=== PATIENT | female | born 1950 | race Caucasian/White ===

== ENCOUNTER 2018-12-11 05:51 | Inpatient (IN) | payer MEDICARE, OTHER, SELFPAY ==
[2018-11-27 12:57] VITALS: BMI 32.5
[2018-12-11] VITALS (10 sets, daily range): BP systolic 105–124; BP diastolic 55–72; PULSE 72–111; RESP 10–20; TEMP 36.1–36.9; O2SAT 95–98; BMI 34.0
[2018-12-11] MEDS: LACTATED RINGERS 1,000 ML 42 ML IV ×2 (07:07→08:46)
[2018-12-11] MEDS: MIDAZOLAM 2 MG/2 ML VIAL IV (07:42)
[2018-12-11] MEDS: fentaNYL 100 MCG/2 ML INJ 50 MCG IV (07:42)
--- NOTE | 2018-12-11 07:43 | PM.PREOP ---
Pre-operative Note Interval Note History & Physical reviewed/Exam performed by Physician: Yes Changes to H&P: No
--- NOTE | 2018-12-11 07:48 | PM.OP.1 ---
Operative Date/Time/Diagnoses Date of procedure: 12/11/18 Time of procedure: 09:45 Pre-op diagnosis: Right shoulder osteoarthritis Post-op diagnosis: same Procedure & Clinicians Procedure: Right total shoulder replacement Same procedure as scheduled: Yes Indications: The patient has had progressively worsening right shoulder pain with radiographic changes consistent with arthritis. Non-operative management has failed and the patient has requested total shoulder replacement. The risks, benefits and alternatives to surgery were discussed with the patient prior to proceeding. Risks discussed included, but were not limited to, failure to relieve pain, stiffness, infection, nerve damage, deep venous thrombosis, pulmonary embolism, stroke, coma, heart attack, permanent paralysis and , as well as the potential need for eventual revision of the prosthetic. Surgeon: John Tamayo Corporate Communications Associate: Alejandro Woods Click Yes if Unassisted: No Anesthesia Type: General, Peripheral nerve block and Local Operative Notes Findings: Severe osteoarthritis with large inferior osteophyte on the humeral head. Closure Type: primary Specimen(s): none sent Prosthetic devices, grafts, tissues, transplants, or devices: Implants used in this procedure were manufactured by the [employer] and included an Altivate short stem total shoulder system with a size 12 humeral stem, neutral humeral neck, and a 46 mm x 16 mm neutral humeral head. In addition a 46 mm all polyethylene E + pegged glenoid was used. Applied: implant(s) Estimated Blood Loss (mL): 100 Blood products transfused: none Procedure in detail: The patient was seen in the pre-operative area, where the patient identified the right shoulder as the operative site and this was marked with my initials. The patient received pre-operative antibiotics, underwent an interscalene block, and was taken to the operating room and placed on the operative table in the supine position. After satisfactory anesthesia, a full ?time out? was performed. The patient was repositioned in the ?beach chair? position using a dedicated positioner. All pressure points were well padded, and the knees were slightly bent to prevent tension on the sciatic nerves. The right arm was prepared from the fingers to the base of the neck with ChloroPrep in the usual fashion and draped through sterile drapes. An approximately 15 cm incision was created, starting at the clavicle above the coracoid process and extended towards the deltoid insertion. The deltopectoral interval was used to access the shoulder. The cephalic vein was taken medially. A self retaining retractor was placed. The upper centimeter of the pectoralis major tendon was released. The ?three sisters? were identified and cauterized. The axillary nerve was palpated and protected throughout the case. The biceps was released from its groove and tenodesed over the top of the pectoralis major tendon. The subscapularis was released from the lesser tuberosity with a subscapularis peel and tagged for later repair. The shoulder was dislocated and a cutting guide was used for the proximal humeral osteotomy in 30 degrees of retroversion. A starter reamer was used followed by the cylindrical reamers. This continued in larger sizes in till cortical bite was achieved. Sequential broaching was then performed until a line to line fit with the reamer occurred. A proximal humeral protector was then placed. We then removed the self-retaining retractor and placed retractors to access the glenoid. The subscapularis was released with a ?360 degree release? with care being taken to protect the axillary nerve with the inferior portion of this procedure. The remnant of labrum and biceps stump were removed. The appropriate size reamer was chosen with the glenoid sizer, and the guide pin placed. The glenoid was appropriately reamed. The guide for the peripheral holes was used and the center hole enlarged. The trial glenoid was placed with good stability. We then cemented the final implant into place after irrigating the peg holes and drying them with thrombin-soaked Gelfoam. We returned our attention to the humerus, a trial humeral head was applied and a trial reduction performed. Stability was checked with 50% posterior translation with spontaneous reduction, 45? external rotation at the side with the subscapularis held in the repaired position, and internal rotation to 70? in the ?scarecrow position?. This was felt to be satisfactory and the appropriate implants were opened. Five holes were drilled along the humeral osteotomy and #2 TiCron sutures placed for eventual subscapularis repair. The humeral prosthetic was impacted into the humerus. The humeral head was applied when the stem was still slightly proud and impacted to both seat the head and fully seat the stem. The joint was relocated one final time. The joint was irrigated and the subscapularis repaired to the previously placed sutures using Filiberto-Zeeshan sutures. The top of the subscapularis was closed to the leading edge of the supraspinatus with a figure of 8 #2 TiCron to close the rotator interval. A deep drain was placed and brought out supero-laterally. The deltopectoral interval was closed with interrupted 0 Vicryl. The subcutaneous layer was closed with 3-0 Vicryl, and the skin with a running 3-0 V-Lock suture and SteriStrips. An Aquacel Ag dressing was applied, the patient?s arm was placed in a sling, and the patient was taken to recovery having tolerated the procedure well. Complications: none Condition: stable Disposition: PACU Plan for aftercare: The patient will be maintained on a standard total shoulder replacement protocol with passive range of motion limited to 90 degrees forward flexion, 0 degrees external rotation at the side, 0 degrees abduction and internal rotation to the body. The patient will receive aspirin and sequential compression devices for DVT prophylaxis. The patient will be discharged home when safe for the home environment, likely tomorrow.
[2018-12-11] MEDS: CEFAZOLIN 2 GM/100 ML FROZ.PIGGY IV (07:51)
--- NOTE | 2018-12-11 07:52 | SUR.PREOP ---
0742 - Anesthesia at bedside starting nerve block to right shoulder, pt. placed in supine flat position for procedure; O2 applied @ 2L/min. VSS, saturation 100%. 0749 - block procedure completed, pt. tolerated quite well, verbally responsive.
[2018-12-11] MEDS: TRANEXAMIC ACID 1,000 MG VIAL 1000 MG INJ ×2 (08:20→09:26)
--- NOTE | 2018-12-11 08:32 | SUR.OPER ---
Beach chair with skytron table shoulder positioner. Lower body on padded OR bed. Head in foam padded head cradle, secured with straps. Non-operative arm secured <90 degrees abduction. Pillow under knees. Safety belt at thigh. Cloth tape over blanket over lower legs.
[2018-12-11] MEDS: BUPIVACAINE 0.5% W/ EPI (PF) VIAL 30 ML INJ (08:39)
[2018-12-11] MEDS: THROMBIN (RECOMBINANT) 5,000 UNIT VIAL 5000 UNIT TOP (08:45)
--- NOTE | 2018-12-11 10:05 | DI.RAD.S_ITS ---
PROCEDURE: XR SHOULDER RT 1V INDICATIONS: post op total shoulder TECHNIQUE: Single views of the shoulder were acquired. COMPARISON: None. FINDINGS: Bones: Single view demonstrates right shoulder arthroplasty. The hardware is in anatomic alignment. Soft tissues: Postoperative changes are present with a surgical drain in place. IMPRESSION: Status post right shoulder arthroplasty. Dictated by: Lucina Alves M.D. on 12/11/2018 at 10:30 Approved by: Lucina Alves M.D. on 12/11/2018 at 10:31
[2018-12-11] MEDS: OXYCODONE IR 10 MG TABLET PO ×2 (11:08→23:37)
[2018-12-11] MEDS: HYDROMORPHONE 1 MG INJ 0.5 MG IV (11:10)
[2018-12-11] MEDS: LACTATED RINGERS 1,000 ML 125 ML IV ×2 (11:11→20:10)
--- NOTE | 2018-12-11 11:12 | PC.NURSE ---
Addendum entered by Luz Mancini R.N. 12/11/18 15:02: Pt is up in halls with PT and reports pain is well controlled with PO meds. PT will see Pt again in AM and spouse will be here. Original Note: Admit Pt arrived to floor @ 1032, oriented to room, admission completed. CBG 140, snack at bedside. CMS + wiggling fingers, numbness to R shoulder but throb starting. Medicated. LR hung. Pt cooperative and in good spirits.
--- NOTE | 2018-12-11 14:45 | PT.IIE ---
Current Diagnoses Primary osteoarthritis, right shoulder (12/11/18) Surgery Performed Operation Date: 12/11/18 07:45 Actual Procedures p Total Shoulder Arthroplasty(Right) - John Tamayo MD Surgical History (Last Updated 11/27/18 @ 13:36 by Mena Wynn, RN) History of arthroplasty of left knee (Acute) History of arthroplasty of left shoulder (Acute) History of arthroplasty of right knee (Acute) History of section (Acute) History of lumbar spinal fusion (Acute 11/17/17) History of lumbar surgery (Acute) Hx of cholecystectomy (Acute) Hx of tonsillectomy (Acute) Hx of umbilical hernia repair (Acute) Status post cataract extraction of both eyes with insertion of intraocular lens (Acute ~2018) Medical History (Last Updated 11/27/18 @ 13:36 by Mena Wynn RN) Bilateral shoulder pain (Acute) Bronchitis (Acute) Depression (Acute) Diabetes (Acute) Diverticulosis (Acute) HLD (hyperlipidemia) (Acute) Hepatomegaly (Acute) History of hysterectomy (Acute) Hx of prolonged Q-T interval on ECG (Acute) Osteoarthritis (Acute) Pneumonia (Acute) Pulmonary nodules (Acute) Rheumatoid arthritis (Acute) CARLY (stress urinary incontinence, female) (Acute) Sciatica (Acute) Physical Therapy Inpatient Evaluation/Re-Eval M1 PT/OT-IP Prior Functional Status Start: 12/11/18 11:20 Freq: NEEDED Status: Active Protocol: Document 12/11/18 14:45 RS (Rec: 12/11/18 15:44 RS [id number]) Medical Review Prior Functional Status Medical History Reviewed Yes Diet/Fluid Consistency Regular Communication no known deficits Mobility and Gait ind without device, does endorse occassional bilat knee pain, can usually walk 5-10 minutes without stopping Activities of Daily Living and IADL's completely independent Prior Functional Level (Other details) drives, denies falls Social History Household Members spouse Living Arrangements House Number of Floors (Floors) One Floor Number of Stairs To Enter/Railing? 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 Retired Additional Social History Comment spouse can provide 24/7 assist M2 PT-IP Current Condition Start: 12/11/18 11:20 Freq: NEEDED Status: Active Protocol: Document 12/11/18 14:45 RS (Rec: 12/11/18 15:44 RS [id number]) Physical Therapy Current Condition Current Condition Evaluation Date 12/11/18 Treatment Diagnosis R TSA Onset Date 12/11/18 Precautions Shoulder Precautions Sling PROM Internal Rotation to Body No External Rotation No Abduction Forward Flexion to 90 degrees Pendulums Weight Bearing Status Weight Bearing Status Non-Weight Bearing M3 PT-IP Subjective Start: 12/11/18 11:20 Freq: NEEDED Status: Active Protocol: Document 12/11/18 14:45 RS (Rec: 12/11/18 15:44 RS [id number]) Subjective Physical Therapy Visit Type Type Initial Evaluation Visit Start Time 14:00 Visit Stop Time 14:45 Total Visit Minutes 45 Physical Therapy Visit Comments Patient Comments Pt reports doing well, does endorse R shoulder pain, but is looking forward to getting up and moving. Patient Goals go home tomorrow Therapy Pain Assessment Pain When Pain Assessed At Rest Pain Present Pain Present Pain Reported Location Right Shoulder Description Aching Pain Management Techniques Apply Cold Re-positioning M4 PT-IP Mobility and Gait Start: 12/11/18 11:20 Freq: NEEDED Status: Active Protocol: Document 12/11/18 14:45 RS (Rec: 12/11/18 15:44 RS [id number]) PT-Bed Mobility Assessment Supine to Sit Supine to Sit Standby Assistance 1 Person Assistance Head of Bed Elevated Sit to Supine Sit to Supine Standby Assistance 1 Person Assistance Scooting Scooting to Edge of Bed Standby Assistance PT-Transfer Assessment Sit to and From Stand Sit to and from Stand Standby Assistance 1 Person Assistance Equipment Transfer Assistive Device None Transfers Transfer Destination Bed Transfer Technique turned to sit after walking around unit Transfer Ability Level of Assist Standby Assistance Comments Mobility Comments Pt intends to sleep in recliner when first home. Did verbally review how to get out of a flat bed once she's ready to try that at home. Pt has utilized log rolling in the past and feels comfortable using the technique, declined to take the time to actually perform it during this session . Pt was able to get back into a flat bed without difficulty . Pt very steady on her feet with transfers, no dizziness or LOB. Gait Assessment Gait Gait Assistance Required: Standby Assistance Distance (Feet) 800 Assistive Devices Assistive Device None Gait Deviations General Gait Pattern Within Normal Limits Comments Gait Comments completely WNL, no LOB or other gait abnormalities, did cue patient a few times to keep R shoulder relaxed Stair Climbing Assessment Evaluation Level of Assist On Stairs Standby Assistance Devices Stair Climbing Assistive Devices Left Railing Technique/Endurance Stair Climbing Direction Ascend and Descend Stair Climbing Technique Step to Step Number of Steps Climbed 3 Query Text: Stair Climbing Set # Repetitions (reps) 1 Comments Stair Climbing Comments pt utilizes step-to pattern at baseline, able to complete steps safely, no concerns PT-Balance Assessment Sitting Balance and Reactions Static Sitting Balance Ability Normal Dynamic Sitting Balance Ability Normal Standing Balance and Reactions Static Standing Balance Ability Normal Dynamic Standing Balance Ability Normal Device Used none M5 PT-IP Objective Assessments Start: 12/11/18 11:20 Freq: NEEDED Status: Active Protocol: Document 12/11/18 14:45 RS (Rec: 12/11/18 15:44 RS [id number]) Orientation Orientation/Cognition Level of Alertness Alert Orientation Name Age Birthday Month Date Year Day of Week Place Situation Language Function Ability No Deficits Noted Safety Awareness Understands Safety Issues Memory Description No Deficits Noted Gross Range of Motion Upper Extremity ROM Assessment Bilaterally Impaired Impairments RUE in sling, LUE limited by pain but WFL Lower Extremity ROM Assessment Within Functional Limits Strength Upper Extremity Strength Assessment Right Impaired Lower Extremity Strength Assessment Within Functional Limits M7 PT-IP Assessment and Plan Start: 12/11/18 11:20 Freq: NEEDED Status: Active Protocol: Document 12/11/18 14:45 RS (Rec: 12/11/18 15:44 RS [id number]) PT Summary Assessment and Plan Potential Rehabilitation Potential Excellent Status of Condition at Evaluation Stable
[2018-12-11] MEDS: CEFAZOLIN 1 GM/50 ML FROZ.PIGGY IV ×2 (15:40→23:31)
[2018-12-11] MEDS: ACETAMINOPHEN 325 MG TABLET 975 MG PO ×2 (15:41→20:09)
[2018-12-11] MEDS: METFORMIN HCL 500 MG TABLET 1000 MG PO (17:17)
[2018-12-11] MEDS: INSULIN ASPART 100 UNIT/ML INSULN PEN SUBCUT (17:18)
[2018-12-11] MEDS: METOPROLOL ER 50 MG TABLET PO (20:07)
[2018-12-11] MEDS: TOLTERODINE LA 4 MG PO (20:07)
[2018-12-11] MEDS: OXYCODONE IR 5 MG TABLET PO (20:08)
[2018-12-11] MEDS: ASPIRIN EC 81 MG TABLET PO (20:08)
[2018-12-11] MEDS: MELOXICAM 7.5 MG TABLET 15 MG PO (20:08)
[2018-12-11] MEDS: GABAPENTIN 300 MG CAPSULE PO (20:08)
[2018-12-11] MEDS: DULOXETINE 30 MG CAPSULE 60 MG PO (20:08)
[2018-12-11] MEDS: SIMVASTATIN 20 MG TABLET PO (20:10)
--- NOTE | 2018-12-11 21:18 | PC.NURSE ---
evening note-pt has been sitting up in bed most of the shift. up to the bathroom a few times w/SBA. Pain has been tolerable, did give pt one percolone at HS. Pt has been A&O, calm and cooperative.
[2018-12-12] MEDS: OXYCODONE IR 5 MG TABLET PO (04:34)
[2018-12-12 04:37] VITALS: BP 118/49; PULSE 99; RESP 16; TEMP 36.6; O2SAT 96
--- NOTE | 2018-12-12 04:53 | PC.NURSE ---
NOC SHIFT- Patient pleasant, VSS. Pain managed with oxycodone, patient verbalizes tolerable pain levels. Patient sleeping most of shift. Ice pack to shoulder, hemovac patent. Dressing clean and dry. +CMS, +radial pulse strong. No voiced needs or concerns throughout shift. Call light in reach.
[2018-12-12 05:28] LABS: Hematocrit 31.1 % (36-46); Hemoglobin 10.5 g/dL (12.0-16.0); Mean Corpuscular HGB Conc 33.6 % (30-36); Mean Corpuscular Hemoglobin 28.9 PG (26-34); Mean Corpuscular Volume 85.9 fL (80-100); Platelet Count 174 X10^3/uL (150-400); Red Blood Cell Count 3.62 X10^6/uL (4.0-5.2); Red Cell Distribution Width 13.4 % (11.6-14.8); White Blood Cell Count 6.2 X10^3/uL (4.5-11.0)
--- NOTE | 2018-12-12 07:45 | P.DS_ITS ---
History of Present Illness Date Patient Seen: 12/12/18 Time Patient Seen: 07:42 Chief complaint: right shoulder [id number] Narrative: The history and physical exam is contained in the chart previously completed note. Please refer to that note for this information. Discharge Providers Date of admission: 12/11/18 05:51 Primary care physician: Christin Linares PA-C Consults: 12/11/18 06:00 Consult to Anesthesiology Routine Comment: Consulting Provider: Anesthesiologist Reason for consultation: Regional block for post operative pain control 12/11/18 10:44 Consult to Discharge Planning Routine Comment: Consult to Physical Therapy Evaluate & Treat Comment: Physician Instructions: Evaluate and Treat Consult to Respiratory Therapy Evaluate & Treat Comment: Physician Instructions: Evaluate and treat Discharge provider: John Tamayo MD Discharge Date: 12/12/18 Summary Discharge Diagnosis: 1. Right shoulder osteoarthritis 2. Mild acute post hemorrhagic anemia Hospital Course: The patient was admitted to the hospital and taken directly to the operating room on December 11, 2018 where she underwent a right total shoulder replacement without difficulty. She was in some discomfort on postoperative day 1 but was stable for discharge. Status at Discharge Cognitive/behavioral status at discharge: At baseline Functional status at discharge: independent ambulation Overall status at discharge: patient is progressing back to baseline Time Spent with Patient Less than 30 minutes Exam Vital Signs (past 8 hours): - 12/12/18 04:37 Temperature 97.8 F Pulse Rate 99 H Respiratory Rate 16 Blood Pressure 118/49 L Pulse Oximetry 96 Oxygen Delivery Method Room Air Oxygen Flow Rate 0 Narrative Exam Narrative: Right upper extremity wound is dressed with no drainage on the bandage. In light touch is intact in the radial, ulnar, median, muscular cutan eous and axillary nerve distributions. The patient can fire her deltoid and biceps as well as her thumb extensors, thumb abductors and finger abductors. Objective Labs Result Diagrams: 12/12/18 05:03 Labs: Laboratory Results - last 24 hr 12/12/18 05:03 WBC 6.2 RBC 3.62 L Hgb 10.5 L Hct 31.1 L MCV 85.9 MCH 28.9 MCHC 33.6 RDW 13.4 Plt Count 174 Discharge Plan Discharge Plan Patient Disposition: Home Discharge Med Rec/Prescriptions Prescriptions: New acetaminophen 325 mg Tablet 975 mg PO TID 30 Days Qty: 270 RF: 0 aspirin 81 mg Tablet,Delayed Release (Dr/Ec) 81 mg PO BID 42 Days Qty: 84 RF: 0 oxycodone 5 mg Tablet 5 mg PO Q3HR PRN (Reason: Pain, Moderate (4-6)) Qty: 40 RF: 0 hydroxyzine pamoate 25 mg Capsule 25 mg PO Q4HR PRN (Reason: Spasms) Qty: 40 RF: 0 Continued meloxicam 15 mg tablet 15 mg PO BEDTIME RF: 0 metformin 1,000 MG tablet 1,000 mg PO QPM Qty: 0 RF: 0 lisinopril 10 MG tablet 10 mg PO QAM Qty: 0 RF: 0 duloxetine [Cymbalta] 60 MG capsule,delayed release(DR/EC) 60 mg PO HS Qty: 0 RF: 0 gabapentin [Neurontin] 300 MG capsule 300 mg PO BID Qty: 180 RF: 0 metoprolol succinate [Toprol XL] 50 MG tablet extended release 24 hr 50 mg PO BID Qty: 180 RF: 0 simvastatin 40 mg Tablet 20 mg PO BEDTIME RF: 0 triamterene-hydrochlorothiazid 75-50 mg Tablet 0.5 tab PO DAILY RF: 0 Januvia 100 mg Tablet 100 mg PO DAILY RF: 0 tolterodine [Detrol LA] 4 mg Capsule,Extended Release 24hr 4 mg PO BEDTIME RF: 0 Discontinued aspirin 81 MG tablet,delayed release (DR/EC) 81 mg PO QDAY Qty: 0 RF: 0 Follow up/Referrals: John Tamayo MD [Physician] - 2 Weeks Christin Linares PA-C [Primary Care Provider] - Provider Discharge Instructions Diet: Diet as Tolerated and Carb-consistent/Diabetic Activity: You may move your right arm in front of your body below shoulder level. Skin/Wound/Dressing Care Report to your healthcare provider any signs of infection, such as:: chills, fever, night sweats, increased pain, unusual drainage and unusual redness Dressing: Leave the dressing intact until your follow-up appointment. You may shower with the dressing intact. If the center strip of the dressing becomes saturated with either water or blood please call the office. Visit Report/Discharge Packet Instructions: DI for Shoulder Replacement Stand Alone Forms: Surgery Discharge Discharge Data Primary Care Provider: Christin Linares Attending Provider: John Tamayo Admit Date/Time: 12/11/18 05:51
[2018-12-12 08:00] VITALS: BP 140/68; PULSE 91; RESP 16; O2SAT 97
[2018-12-12] MEDS: LISINOPRIL 10 MG TABLET PO (08:25)
[2018-12-12] MEDS: ASPIRIN EC 81 MG TABLET PO (08:25)
[2018-12-12] MEDS: ACETAMINOPHEN 325 MG TABLET 975 MG PO (08:25)
[2018-12-12] MEDS: METOPROLOL ER 50 MG TABLET PO (08:25)
[2018-12-12] MEDS: GABAPENTIN 300 MG CAPSULE PO (08:25)
[2018-12-12] MEDS: TRIAMTERENE/HCTZ 37.5/25 TABLET 0.5 CAP PO (08:25)
[2018-12-12] MEDS: INSULIN ASPART 100 UNIT/ML INSULN PEN SUBCUT (08:26)
[2018-12-12] MEDS: SITAGLIPTIN 50 MG TABLET 100 MG PO (08:26)
[2018-12-12] MEDS: OXYCODONE IR 10 MG TABLET PO (08:27)
--- NOTE | 2018-12-12 09:55 | PT.IPTN ---
Current Diagnoses Primary osteoarthritis, right shoulder (12/11/18) Surgery Performed Operation Date: 12/11/18 07:45 Actual Procedures p Total Shoulder Arthroplasty(Right) - John Tamayo MD Physical Therapy Treatment Note M2 PT-IP Current Condition Start: 12/11/18 11:20 Freq: NEEDED Status: Active Protocol: Document 12/11/18 14:45 RS (Rec: 12/11/18 15:44 RS [id number]) Physical Therapy Current Condition Current Condition Evaluation Date 12/11/18 Treatment Diagnosis R TSA Onset Date 12/11/18 Precautions Shoulder Precautions Sling PROM Internal Rotation to Body No External Rotation No Abduction Forward Flexion to 90 degrees Pendulums Weight Bearing Status Weight Bearing Status Non-Weight Bearing M3 PT-IP Subjective Start: 12/11/18 11:20 Freq: NEEDED Status: Active Protocol: Document 12/12/18 09:55 RS (Rec: 12/12/18 09:55 RS [id number]) Subjective Physical Therapy Visit Type Type Discharge Summary Notes OT order was submitted, so OT took the family training scheduled for 0900 today with pt and spouse. Pt safe and ready to discharge home. Acute PT has no other goals/needs at this time and will sign off . M4 PT-IP Mobility and Gait Start: 12/11/18 11:20 Freq: NEEDED Status: Active Protocol: Document 12/11/18 14:45 RS (Rec: 12/11/18 15:44 RS [id number]) PT-Bed Mobility Assessment Supine to Sit Supine to Sit Standby Assistance 1 Person Assistance Head of Bed Elevated Sit to Supine Sit to Supine Standby Assistance 1 Person Assistance Scooting Scooting to Edge of Bed Standby Assistance PT-Transfer Assessment Sit to and From Stand Sit to and from Stand Standby Assistance 1 Person Assistance Equipment Transfer Assistive Device None Transfers Transfer Destination Bed Transfer Technique turned to sit after walking around unit Transfer Ability Level of Assist Standby Assistance Comments Mobility Comments Pt intends to sleep in recliner when first home. Did verbally review how to get out of a flat bed once she's ready to try that at home. Pt has utilized log rolling in the past and feels comfortable using the technique, declined to take the time to actually perform it during this session . Pt was able to get back into a flat bed without difficulty . Pt very steady on her feet with transfers, no dizziness or LOB. Gait Assessment Gait Gait Assistance Required: Standby Assistance Distance (Feet) 800 Assistive Devices Assistive Device None Gait Deviations General Gait Pattern Within Normal Limits Comments Gait Comments completely WNL, no LOB or other gait abnormalities, did cue patient a few times to keep R shoulder relaxed Stair Climbing Assessment Evaluation Level of Assist On Stairs Standby Assistance Devices Stair Climbing Assistive Devices Left Railing Technique/Endurance Stair Climbing Direction Ascend and Descend Stair Climbing Technique Step to Step Number of Steps Climbed 3 Query Text: Stair Climbing Set # Repetitions (reps) 1 Comments Stair Climbing Comments pt utilizes step-to pattern at baseline, able to complete steps safely, no concerns PT-Balance Assessment Sitting Balance and Reactions Static Sitting Balance Ability Normal Dynamic Sitting Balance Ability Normal Standing Balance and Reactions Static Standing Balance Ability Normal Dynamic Standing Balance Ability Normal Device Used none M5 PT-IP Objective Assessments Start: 12/11/18 11:20 Freq: NEEDED Status: Active Protocol: Document 12/11/18 14:45 RS (Rec: 12/11/18 15:44 [id number]) Orientation Orientation/Cognition Level of Alertness Alert Orientation Name Age Birthday Month Date Year Day of Week Place Situation Language Function Ability No Deficits Noted Safety Awareness Understands Safety Issues Memory Description No Deficits Noted Gross Range of Motion Upper Extremity ROM Assessment Bilaterally Impaired Impairments RUE in sling, LUE limited by pain but WFL Lower Extremity ROM Assessment Within Functional Limits Strength Upper Extremity Strength Assessment Right Impaired Lower Extremity Strength Assessment Within Functional Limits M7 PT-IP Assessment and Plan Start: 12/11/18 11:20 Freq: NEEDED Status: Active Protocol: Document 12/11/18 14:45 RS (Rec: 12/11/18 15:44 RS [id number]) PT Summary Assessment and Plan Potential Rehabilitation Potential Excellent Status of Condition at Evaluation Stable
--- NOTE | 2018-12-12 09:59 | OT.IP.EVAL ---
Current Diagnoses Primary osteoarthritis, right shoulder (12/11/18) Surgery Performed Operation Date: 12/11/18 07:45 Actual Procedures p Total Shoulder Arthroplasty(Right) - John Tamayo MD Past Medical History (Last Updated 11/27/18 @ 13:36 by Mena Wynn, RN) Bilateral shoulder pain (Acute) Bronchitis (Acute) Depression (Acute) Diabetes (Acute) Diverticulosis (Acute) HLD (hyperlipidemia) (Acute) Hepatomegaly (Acute) History of hysterectomy (Acute) Hx of prolonged Q-T interval on ECG (Acute) Osteoarthritis (Acute) Pneumonia (Acute) Pulmonary nodules (Acute) Rheumatoid arthritis (Acute) CARLY (stress urinary incontinence, female) (Acute) Sciatica (Acute) Surgical History (Last Updated 11/27/18 @ 13:36 by Mena Wynn RN) History of arthroplasty of left knee (Acute) History of arthroplasty of left shoulder (Acute) History of arthroplasty of right knee (Acute) History of section (Acute) History of lumbar spinal fusion (Acute 11/17/17) History of lumbar surgery (Acute) Hx of cholecystectomy (Acute) Hx of tonsillectomy (Acute) Hx of umbilical hernia repair (Acute) Status post cataract extraction of both eyes with insertion of intraocular lens (Acute ~2018) Occupational Therapy Inpatient Evaluation/Re-Eval M1 PT/OT-IP Prior Functional Status Start: 12/12/18 17:37 Freq: NEEDED Status: Active Protocol: Document 12/12/18 09:59 PJM (Rec: 12/12/18 17:52 PJM [id number]) Medical Review Prior Functional Status Medical History Reviewed Yes Diet/Fluid Consistency Regular Communication no known deficits Mobility and Gait ind without device, does endorse occasional bilat knee pain, can usually walk 5-10 minutes without stopping Activities of Daily Living and IADL's completely independent Prior Functional Level (Other details) drives, denies falls Social History Household Members spouse Living Arrangements House Number of Floors (Floors) One Floor Number of Stairs To Enter/Railing? 1 stair outside, ramp from garage Home Environment High Toilet Walk in Shower Home Equipment Front Wheel Walker Grab Bars Near Toilet Grab Bars In Shower Employment Status Retired Additional Social History Comment capable spouse can provide 24/ 7 assist M2 OT-IP Current Condition Start: 12/12/18 17:37 Freq: Status: Active Protocol: Document 12/12/18 09:59 PJM (Rec: 12/12/18 17:52 PJM NRTM) Occupational Therapy Current Condition Current Condition Evaluation Date 12/12/18 Treatment Diagnosis decreased self care s/p R TSA Diagnosis Onset Date 12/11/18 Post Operative Precautions Shoulder Precautions Sling PROM Internal Rotation to Body No External Rotation No Abduction Forward Flexion to 90 degrees Pendulums Weight Bearing Status Weight Bearing Status Non-Weight Bearing Allowed Weight Bearing Amount (enter % L UE or #) (%) M3 OT- IP Subjective and Pain Start: 12/12/18 17:37 Freq: Status: Active Protocol: Document 12/12/18 09:59 PJM (Rec: 12/12/18 17:52 PJM NRTM) OT- Subjective Occupational Therapy Visit Type Type Initial Evaluation Visit Start Time 09:10 Visit Stop Time 09:59 Total Visit Minutes 49 Notes here for education this session. Occupational Therapy Visit Comments Patient Comments I think I can do this now that you showed us how. Patient/Caregiver Goals to go home today and regain good use or R dominant UE OT Pain Assessment Pain When Pain Assessed After Treatment Pain Present Pain Present Pain Reported Location Right Shoulder Intensity 7 Scale Used Numeric (1 - 10) Description Aching Acute Pain Behaviors Facial Grimacing Guarding Management Techniques Apply Cold Distraction Re-positioning Timing of Activity with Medications M4 OT- IP ADL's Start: 12/12/18 17:37 Freq: Status: Active Protocol: Document 12/12/18 09:59 PJM (Rec: 12/12/18 17:52 PJM [id number]) OT VOP-Fwea-[facility]xqaot General Evaluation Self-Feeding Ability Independent Areas Needing Assistance Cutting Food Opening Containers Comments OT Self-Feeding Comments needs set up due to unilateral function OT ADL-Grooming General Evaluation Grooming Ability Standby Assistance Areas Needing Assistance Combing/Brushing Hair Face Washing Comments OT Grooming Comments pt SBA at sink after set up OT ADL-Oral Care General Eval Oral Care Ability Independent Devices Oral Care Devices Toothbrush Comments Oral Care Comments after education re: use of R hand as assist within sling OT ADL-Dressing General Eval Upper Body Dressing Ability Moderate Assistance Lower Body Dressing Ability Moderate Assistance Areas Needing Assistance Retrieving/Set-up of Clothing Managing Buttons Button-Up Shirt/Blouse Underpants/Brief Pants/Shorts Socks Shoes Comments OT Dressing Comments Provided education to pt/ re: sequence and technique for dressing within precautions and donning and doffing sling. able to assist pt safely after education. OT ADL-Toileting General Evaluation Toileting Ability Standby Assistance Minimal Assistance Comments OT Toileting Comments pt needs SBA to min assist to get pants over R hip; pt has purchased toilet paper aid OT ADL-Bathing Comments OT Bathing Comments provided education re: technique and precautions and pt/ verbalize understanding M5 OT- IP IADL's Start: 12/12/18 17:37 Freq: Status: Active Protocol: Document 12/12/18 09:59 PJM (Rec: 12/12/18 17:52 [facility] NR) OT-Instrumental Activities of Daily Living Deficits IADL Deficits Identified Deficits Home Safety Awareness Awareness of Need for Assistance at Home Good Awareness Ability to Problem Solve Emergency Able to Problem Solve Situations Medication Management Medication Management Caregiver Provides Supervision Money Management Money Management Caregiver Provides Assistance Money Management Comments to assist with check writing until pt able Meal Preparation Meal Preparation Caregiver Provides Assist Meal Preparation Comments to assist until pt able Art Professor Art Professor Caregiver Provides Assist Art Professor Comments to assist until pt able Driving Driving Caregiver Provides Assist Driving Comments to assist until pt able M6 OT- IP Functional Cognition Start: 12/12/18 17:37 Freq: Status: Active Protocol: Document 12/12/18 09:59 PJM (Rec: 12/12/18 17:52 [facility] NR) Cognitive Factors Limiting Selfcare Function Cognitive Ability Level of Alertness Alert Patient Orientation Name Age Birthday Month Date Year Day of Week Place Situation Attention Span Ability Capable of Focused Attention Capable of Sustained Attention Ability to Follow Commands Able to Follow One Step Commands Memory Description No Deficits Noted Safety Awareness No Deficits Noted Problem Solving Ability No deficits Noted Cognitive Comments Cognitive Assessment Comments cognition appears WFL OT- Vision and Hearing OT- Hearing Assessment OT- Hearing Assessment WFL OT- Vision Assessment Visual Acuity Glasses All The Time M7 OT- IP Mobility and Balance Start: 12/12/18 17:37 Freq: Status: Active Protocol: Document 12/12/18 09:59 PJM (Rec: 12/12/18 17:52 [facility] [id number]) OT- Bed Mobility Assessment Rolling Type of Rolling Roll to Left Level of Assistance Standby Assistance Supine to Sit Supine to Sit Assist Standby Assistance Sit to Supine Sit to Supine Assist Standby Assistance Scooting Scooting to Edge of Bed Standby Assistance OT-Transfer Assessment Sit to and From Stand Sit to and from Stand Standby Assistance Transfers Transfer Ability Standby Assistance Technique Transfer Destination Bed Car Chair Shower Stall Toilet Transfer Technique Stand Step Pivot Devices Transfer Assistive Devices Gait Belt Comments Mobility Comments provided education re: safety for shower stall and car transfers OT- Gait Assessment Gait Gait Assistance Required: Standby Assistance Comments Gait Ability Comments pt ambulating with SBA in room without a device OT- Balance Assessment Sitting Balance and Reactions Static Sitting Balance Ability Good Dynamic Sitting Balance Ability Good Standing Balance and Reactions Static Standing Balance Ability Good Dynamic Standing Balance Ability Good Comments Other Balance Tests/Deviations/Treatment duirng standing for lower body : dressing M8 OT- IP Objective Assessments Start: 12/12/18 17:37 Freq: Status: Active Protocol: Document 12/12/18 09:59 PJM (Rec: 12/12/18 17:52 PJM NR) OT Gross Range of Motion Upper Extremity Range of Motion Assessment Right Impaired ROM Impairments LUE WFL but painful due to arthritis R shoulder NT. Distal AROM WFL Provided education re: passive forward flexion pendulums and distal AROM when sling off. Pt/ verbalize/demo understanding. OT Strength Upper Extremity Strength Assessment Right Impaired Hand Rib Knitter Strength Hand Dominance Right Comments Strength Comments LUE WFL RUE at least 3/5 at elbow, forearm, wrist, fingers. OT- Coordination Assessment Upper Extremity Finger to Nose Test Right UE Impaired Finger Tapping Test Right UE Impaired Comments Coordination Comments RUE in sling; pt using R hand to hold light objects OT-Muscle Tone Assessment Muscle Tone WNL Yes OT Sensation Assessment Comments Summary Comments sensation inact in RUE/hand Edema Edema Absent M9 OT- IP Assessment and Plan Start: 12/12/18 17:37 Freq: Status: Active Protocol: Document 12/12/18 09:59 PJM (Rec: 12/12/18 17:52 PJM [id number]) OT Summary Assessment and Plan Potential Rehabilitation Potential Excellent Analytic Complexity at Evaluation Low Summary OT Impairments Pain Range of Motion Coordination Dressing Bathing Shower Transfers Progress Towards Goals Safe For Discharge Assessment Summary Low complexity OT evaluation and all education completed with pt/ re: R TSA precautions, donning/doffing sling, adapted techniques for grooming, dressing, bathing, and toileting, car transfers. Pt/ verbalize and demonstrate understanding. Supportive, capable will provide 24 hr assist at d/c. Pt plans to d/c home today. No further acute care OT services needed. Discharge Recommendations OT Discharge Recommendations Home with 24/7 Assist
== END 2018-12-12 10:19 | disposition home or self-care (01) | DRG 483 ==
PROVIDERS: Admitting Provider Orthopaedic Surgery; PCP Physician Assistant Medical; Visit Provider Orthopaedic Surgery
PROC: 0RQJ0ZZ Repair Right Shoulder Joint, Open Approach (ICD-10-PCS; CPT 23472; principal; 2018-12-11 07:45)
DX: M19.011 Primary osteoarthritis, right shoulder (principal); M06.9 Rheumatoid arthritis, unspecified; M79.7 Fibromyalgia; E11.9 Type 2 diabetes mellitus without complications; I10 Essential (primary) hypertension; Z79.84 Long term (current) use of oral hypoglycemic drugs; E66.9 Obesity, unspecified; Z68.34 Body mass index [BMI] 34.0-34.9, adult; M25.711 Osteophyte, right shoulder
CPT/HCPCS: 36415; 73020; 82962; 85027; 97116; 97161; 97165; 97530; 97535; C1776; J0330; J0690; J1170; J2250; J2405; J2704; J3010

== ENCOUNTER → 2019-05-05 08:20 | Outpatient (CLI) | payer MEDICARE, OTHER, SELFPAY ==
[2018-12-11 06:29] VITALS: BMI 34.0
--- NOTE | 2019-05-05 08:25 | DI.RAD.S_ITS ---
PROCEDURE: XR CERVICAL SPINE 2V OR 3V INDICATIONS: axial neck pain TECHNIQUE: 3 view(s) of the cervical spine were acquired. COMPARISON: None. FINDINGS: Bones: No fractures or dislocations to the C7 level. The lateral masses of C1 appear intact on the odontoid view. No suspicious bony lesions. Severe degenerative changes are present at C4-5 including intervertebral disc space narrowing, endplate sclerosis, and marked osteophytosis. There is loss of the expected cervical lordosis. Soft tissues: Subtle atheromatous calcifications are present, likely within the right carotid artery. There is likely calcification of the thyroid cartilage. IMPRESSION: 1. Severe degenerative changes of the mid cervical spine. 2. Right carotid artery atherosclerosis. Dictated by: Lucina Alves M.D. on 05/05/2019 at 8:04 Approved by: Lucina Alves M.D. on 05/05/2019 at 8:06
--- NOTE | 2019-05-05 08:55 | DI.MRI.S_ITS ---
PROCEDURE: MR LUMBAR SPINE WO CON INDICATIONS: axial low back pain TECHNIQUE: Noncontrast sagittal T1 spin echo and T2 fast echo, sagittal STIR, axial T1 and T2 fast spin echo through the lumbar spine. In cases with scoliosis, additional coronal T2 fast spin echo may be performed. COMPARISON: [facility], CR, XR LUMBAR SPINE 2 OR 3 VIEWS, 06/08/2018, 9:43. [facility], MR, L-SPINE WITHOUT CONTRAST, 02/11/2017, 12:38. FINDINGS: Image quality: Susceptibility artifacts from lumbar fusion hardware are seen. Alignment and Curvature: Patient is status post interval transpedicular fusion at L2-L5 levels. There is straightening of normal lumbar lordosis. Grade 1 anterolisthesis of L4 on L5 is again seen. Grade 1 retrolisthesis of L1 on L2. Bone Marrow: Marrow is of normal overall signal. No gross acute vertebral body compression fractures. Spinal Cord: Conus medullaris terminates at the L1 level. Visualized cord demonstrates normal signal and size. Paraspinous Soft Tissues: No paravertebral masses. L1-L2: Decreased intervertebral disc space and degenerative endplate changes are seen. There is broad-based disc bulge and bilateral facet arthrosis causing moderate central canal stenosis and moderate to severe bilateral neuroforaminal narrowing. There is likely compression of bilateral exiting L1 nerve roots. L2-L3: There is suggestion of left-sided laminectomy. Bilateral facet arthrosis is seen. Moderate bilateral neuroforaminal narrowing is seen. There is suggestion of mild compression of bilateral exiting L2 nerve roots. L3-L4: There is suggestion of left-sided laminectomy. No significant central canal stenosis. Bilateral facet arthrosis is noted. Moderate bilateral neuroforaminal narrowing is seen. Mild compression of bilateral exiting L3 nerve roots are seen slightly worse on the left side. L4-L5: There is suggestion of prior left-sided laminectomy. No significant central canal stenosis. Moderate bilateral facet arthrosis is seen causing moderate to severe bilateral neuroforaminal narrowing. It is likely compression of bilateral exiting L4 nerve roots. L5-S1: Decreased intervertebral disc space and degenerative endplate changes are seen. Diffuse disc bulge and bilateral facet arthrosis is noted with mild central canal stenosis and mild to moderate bilateral neuroforaminal narrowing. IMPRESSION: 1. Interval transpedicular fusion at L2-L5 levels and likely left-sided laminectomy and intervertebral spacer placement at L2-3 through L4-5 levels. No gross marrow edema. No acute fracture or dislocation. Stable grade 1 retrolisthesis of L1 on L2 and grade 1 anterolisthesis of L4 on L5. 2. Degenerative disc bulge and bilateral facet arthrosis at L1-2 and L5-S1 levels causing mild central canal stenosis and bilateral neuroforaminal narrowing as above. 3. Suggestion of bilateral neuroforaminal narrowing at L2-3 through L4-5 levels, no significant central canal stenosis. Dictated by: Odilon Davalos M.D. on 05/07/2019 at 10:44 Approved by: Odilon Davalos M.D. on 05/07/2019 at 10:59
== END ==
PROVIDERS: PCP Physician Assistant Medical; Visit Provider Registered Nurse
DX: M54.5 Low back pain (principal); M51.36 Other intervertebral disc degeneration, lumbar region; M51.37 Other intervertebral disc degeneration, lumbosacral region; M47.816 Spondylosis without myelopathy or radiculopathy, lumbar region; M47.817 Spondylosis without myelopathy or radiculopathy, lumbosacral region; M48.061 Spinal stenosis, lumbar region without neurogenic claudication; M48.07 Spinal stenosis, lumbosacral region; M43.16 Spondylolisthesis, lumbar region; Z98.1 Arthrodesis status
CPT/HCPCS: 72040; 72148

== ENCOUNTER → 2019-05-28 14:25 | Outpatient (CLI) | payer MEDICARE, OTHER, SELFPAY ==
[2018-12-11 06:29] VITALS: BMI 34.0
--- NOTE | 2019-05-28 14:30 | DI.RAD.S_ITS ---
PROCEDURE: XR SHOULDER RT MIN 2V INDICATIONS: pain TECHNIQUE: 3 views of the shoulder were acquired. COMPARISON: [facility], CR, XR SHOULDER RT 1V, 12/11/2018, 10:16. FINDINGS: Bones: No fractures or dislocations. No suspicious bony lesions. Visualized ribs appear intact. Prior right proximal humeral shoulder arthroplasty Soft tissues: No suspicious soft tissue calcifications. IMPRESSION: Right proximal humeral arthroplasty device appears. Loosening or disruption. Stable postoperative changes. Dictated by: Manpreet Gutierrez M.D. on 05/28/2019 at 17:05 Approved by: Manpreet Gutierrez M.D. on 05/28/2019 at 17:05
--- NOTE | 2019-05-28 14:30 | DI.RAD.S_ITS ---
PROCEDURE: XR SHOULDER LT MIN 2V INDICATIONS: shoulder pain TECHNIQUE: 3 views of the shoulder were acquired. COMPARISON: [facility], CR, XR SHOULDER RT MIN 2V, 05/28/2019, 14:34. [facility], CR, XR SHOULDER RT 1V, 12/11/2018, 10:16. FINDINGS: Bones: No fractures or dislocations. No suspicious bony lesions. There is a moderately severe degree of glenohumeral joint osteoarthritis with osteophytic spurring from the humeral head projecting inferiorly. Visualized ribs appear intact. Soft tissues: No suspicious soft tissue calcifications. IMPRESSION: Moderately severe glenohumeral joint osteoarthritis. No trauma found. Dictated by: Manpreet Gutierrez M.D. on 05/28/2019 at 17:11 Approved by: Manpreet Gutierrez M.D. on 05/28/2019 at 17:11
== END ==
PROVIDERS: PCP Physician Assistant Medical; Visit Provider Registered Nurse
DX: M25.512 Pain in left shoulder (principal); M19.012 Primary osteoarthritis, left shoulder; M25.511 Pain in right shoulder; Z96.611 Presence of right artificial shoulder joint
CPT/HCPCS: 73030; 99215

== ENCOUNTER → 2019-05-29 10:43 | Outpatient (CLI) | payer MEDICARE, OTHER, SELFPAY ==
[2018-12-11 06:29] VITALS: BMI 34.0
--- NOTE | 2019-05-29 10:45 | DI.RAD.S_ITS ---
PROCEDURE: XR LUMBAR SPINE 2-3V INDICATIONS: low back pain with radicular symptoms TECHNIQUE: 3 views of the lumbar spine were acquired. COMPARISON: [facility] [place], CR, XR LUMBAR SPINE 2 OR 3 VIEWS, 06/08/2018, 9:43. [facility], CR, L-SPINE 2-3 VIEWS, 11/17/2017, 8:47. FINDINGS: Bones: No fracture or focal osseous destruction. Paraspinal gavi and pedicle screw fixation with interbody cage grafts from L2-L5. The hardware appears grossly intact. Multilevel spondylosis throughout the unfused visible spine, most pronounced at L5-S1. Levoscoliosis. Residual grade 1 anterolisthesis of L4 and L5. Slight lucency seen involving the superiormost pedicle fixation screws however this is unchanged Soft tissues: Overlying bowel gas pattern is normal. No suspicious soft tissue calcifications. IMPRESSION: Postsurgical and degenerative changes as above, without interval progression since 06/08/18. Dictated by: Ezra Ace M.D. on 05/29/2019 at 13:50 Approved by: Ezra Ace M.D. on 05/29/2019 at 13:51
== END ==
PROVIDERS: PCP Physician Assistant Medical; Visit Provider Registered Nurse
DX: M54.5 Low back pain (principal); M47.26 Other spondylosis with radiculopathy, lumbar region; M47.27 Other spondylosis with radiculopathy, lumbosacral region; M43.19 Spondylolisthesis, multiple sites in spine; M41.9 Scoliosis, unspecified; Z98.1 Arthrodesis status
CPT/HCPCS: 72100

== ENCOUNTER → 2019-07-03 15:41 | Outpatient (CLI) | payer MEDICARE, OTHER, SELFPAY ==
[2018-12-11 06:29] VITALS: BMI 34.0
--- NOTE | 2019-07-03 15:46 | DI.MRI.S_ITS ---
PROCEDURE: MR CERVICAL SPINE WO CON INDICATIONS: axial neck pain TECHNIQUE: Noncontrast sagittal T1 spin echo and T2 fast spin echo, sagittal STIR, foraminal oblique sagittal T2 fast spin echo, and axial gradient echo or T2 fast spin echo through the cervical spine. COMPARISON: [facility], CR, XR CERVICAL SPINE 2V OR 3V, 05/05/2019, 8:33. FINDINGS: Image quality: Excellent. Alignment and Curvature: There is reversal of the normal cervical lordosis, with the apex at the C5-C6 level. Minimal retrolisthesis is seen at C5-C6. Bone Marrow: Marrow demonstrates normal overall signal. Spinal Cord: Visualized spinal cord has normal size and signal. No cerebellar tonsillar herniation. Paraspinous Soft Tissues: No paravertebral masses. Prevertebral soft tissues are normal in thickness. C2-C3: The disc height is well-preserved. Loss of disc signal is seen at this level. A mild degree of generalized disc osteophyte complex is seen. There is a superimposed mild central disc protrusion. There is mild right-sided and no significant left-sided neural foraminal narrowing seen. Mild central canal narrowing is seen. C3-C4: The disc height is well-preserved. Loss of disc signal is seen at this level. Mild to moderate disc osteophyte complex is seen. There is moderate to severe left-sided and mild right-sided facet hypertrophy seen. There is moderate to severe left-sided neural foraminal narrowing. There is mild right-sided neural foraminal narrowing. Mild central canal narrowing is seen. C4-C5: The disc height is well-preserved. Loss of disc signal is seen at this level. [id number] disc osteophyte complex is seen. There is mild to moderate left-sided and mild right-sided neural foraminal narrowing seen. Mild central canal narrowing is seen. C5-C6: Moderate to severe loss of disc height and disc signal are seen. Prominent disc osteophyte complex is seen. Prominent uncovertebral joint hypertrophy is seen. Moderate facet joint hypertrophy is seen. There is moderate to severe bilateral neural foraminal narrowing seen, with associated compression upon the exiting nerve roots. Moderate to severe central canal narrowing is seen. C6-C7: The disc height is well-preserved. Loss of disc signal is seen at this level. Moderate generalized disc osteophyte complex is seen. Mild facet joint hypertrophy is seen. There is moderate right-sided and moderate to severe left-sided neural foraminal narrowing seen. [id number] central canal narrowing is seen. C7-T1: The disc height is well-preserved. Loss of disc signal is seen at this level. A mild degree of generalized disc osteophyte complex is seen. There is moderate right-sided and moderate to severe left-sided neural foraminal narrowing seen. No significant central canal narrowing is seen. IMPRESSION: Focal prominent C5-C6 degenerative change is seen. Milder degenerative changes are seen elsewhere. Dictated by: Garry Hammer M.D. on 07/03/2019 at 17:00 Approved by: Garry Hammer M.D. on 07/03/2019 at 17:05
== END ==
PROVIDERS: Family Provider Physician Assistant Medical; PCP Physician Assistant Medical; Visit Provider Registered Nurse
DX: M54.2 Cervicalgia (principal); M47.812 Spondylosis without myelopathy or radiculopathy, cervical region
CPT/HCPCS: 72141

== ENCOUNTER 2019-10-04 08:04 | Outpatient (CLI) | payer MEDICARE, OTHER, SELFPAY ==
[2018-12-11 06:29] VITALS: BMI 34.0
[2019-10-04] VITALS (8 sets, daily range): BP systolic 115–141; BP diastolic 70–91; PULSE 83–93; RESP 16–20; TEMP 36.3; O2SAT 96–100
--- NOTE | 2019-10-04 08:07 | DI.RAD.S_ITS ---
PROCEDURE: PAIN C/T INTERLAMINAR INJECT INDICATIONS: CERVICAL DISC DISPLACEMENT FINDINGS: Fluoroscopic spot filming was performed to verify placement of spinal needles at the C5-C6 level(s), as labeled on the films. Appropriate location(s) of the needle tip(s) was confirmed by injection of iodinated contrast. IMPRESSION: Fluoroscopy for pain management. Dictated by: Adam Bledsoe M.D. on 10/04/2019 at 10:35 Approved by: Adam Bledsoe M.D. on 10/04/2019 at 10:36
--- NOTE | 2019-10-04 09:07 | PC.NURSE ---
pt nad, sleeping with symmetrical respirations, easily awaken with verbal stimuli, skin warm dry pink.
[2019-10-04] MEDS: MIDAZOLAM 5 MG/5 ML VIAL IV (10:09)
[2019-10-04] MEDS: fentaNYL 100 MCG/2 ML INJ 50 MCG IV (10:10)
[2019-10-04] MEDS: IOPAMIDOL 15 ML VIAL 3 ML INJ (10:13)
[2019-10-04] MEDS: DEXAMETHASONE 10 MG/ML VIAL 30 MG INJ (10:13)
--- NOTE | 2019-10-04 10:18 | PC.NURSE ---
ASSISTING PT OFF TABLE AND TRANSPORTING TO POST PROC AREA IN STABLE CONDITION. PASSING RN CARE OF PT OFF TO JOHN Hagen RN.
--- NOTE | 2019-10-04 10:24 | P.PCN_ITS ---
Procedures Date/Time Date of procedure: 10/04/19 Time of procedure: 10:24 General Procedure description: PREOP DIAGNOSIS 1. CERVICAL STENOSIS, 2. CERVICAL HNP WITH UPPER EXTREMITY RADICULAR FEATURES, POST OP DIAGNOSIS 1. CERVICAL STENOSIS, 2. CERVICAL HNP WITH UPPER EXTREMITY RADICULAR FEATURES, PROCEDURES 1. FLUORSCOPICALLY GUIDED CONTRAST CONTROLLED INTERLAMINAR EPIDURAL STEROID INJECTION - C5/6 TL LAYA PHYSICIAN: Jaylan Townsend DO INDICATIONS Yanira is referred for treatment of Cervical HNP with Upper Extremity Paresthesias. FINDINGS Cervical Stenosis due to disc deterioration and nerve root irritation and nerve root irritation DESCRIPTION OF PROCEDURE Fluoroscopically guided, contrast-controlled C5/6 translaminar epidural steroid injection with conscious sedation. Following review of allergy and review of potential side effects and complications, including, but not necessarily limited to, infection, allergic reaction, local tissue breakdown, temporary as well as permanent nerve injury, stroke, paralysis, and possible , the patient indicated that patient understood and agreed to proceed. An informed consent document was signed by the patient, witnessed by a nurse, and placed in the patient's chart. Additionally, other treatment options including modalities, medications, and physical therapy were reviewed with the patient. After review of previous anaesthesic history and IV conscious sedation the patient was deemed safe to proceed with todays procedure with IV conscious sedation as ASA class II designation. Safety time-out was performed to confirm patient ID, procedure to be performed and site of procedure. IV sedation was accomplished with a combination of 1mg of Versed and 50mcg of Fentanyl administered by the RN after DO order, titrated to patient comfort during the course of the procedure while the patient remained responsive to all verbal commands. In the prone position, following sterile prep and drape of the cervical region, the C5/6 translaminar space was identified fluoroscopically. The skin was anesthetized via a 25-gauge 1.5-inch needle with 1% lidocaine solution. At this point, a 25-gauge, 2.5-inch short bevel spinal needle was atraumatically introduced and advanced under fluoroscopic guidance into epidural space at the C5/6 translaminar space. Depth was confirmed on lateral view. Radiological data, including multiple fluoroscopic views of the cervical spine, reveal a spinal needle at the C5/6 translaminar space. Lateral views then show placement of the needle in the epidural space. Subsequent views show contrast material flowing superiorly and inferiorly in the epidural space. DSA fluoroscopy with live contrast injection, once again, confirmed no vascular or intrathecal uptake. At this point, using loss of resistance technique with saline and air, the epidural space was entered. Following negative aspiration, injection of approximately 1.5 cc of Isovue-200 with live fluoroscopy in the AP view confirmed epidural flow in the epidural space without vascular or intrathecal uptake observed. Subsequently, a test dose of 1 cc of 1% lidocaine solution was injected and patient was observed for two minutes without signs or symptoms of c omplications, including abdominal pain, shortness of breath, bilateral upper or lower extremity weakness, nausea and vomiting, prior to steroid injection. At this point, 3cc or 30mg of dexamethasone was then injected without incident. The patient tolerated the procedure well without signs or symptoms of complications prior to being transferred to the recovery area for further monitoring. The patient was then transferred to the recovery area where they were observed for an appropriate period of time after the injection. The patient reported a VAS score of 6 prior to the procedure and a post-procedure VAS of 0. Total Fluoroscopy Time: 37.0 seconds Total Conscious Time: 24min POST OP INSTRUCTIONS The patient was provided a Pain Log to continue to record their response to the target-specific procedure prior to follow-up visit with the referring provider. Additionally, specific post-injection care instructions and a contact number to our office were provided if concerns arise regarding possible complications associated with the procedure are suspected. Jaylan Townsend, Complications: none
--- NOTE | 2019-10-04 10:34 | PC.NURSE ---
at 1023 returned from procedure via w/c, able to transfer self to recliner, pain free, assuming care from diana hubbard./
[2019-10-04] MEDS: LIDOCAINE 1% 20 ML 5 ML INJ (10:39)
== END 2019-10-04 10:52 | disposition home or self-care (01) ==
PROVIDERS: Family Provider Physician Assistant Medical; PCP Physician Assistant Medical; Visit Provider Physical Medicine & Rehabilitation
DX: M48.02 Spinal stenosis, cervical region (principal); M50.122 Cervical disc disorder at C5-C6 level with radiculopathy
CPT/HCPCS: 62321; 99152; J1100; J2250; J3010

== ENCOUNTER → 2020-06-02 10:31 | Outpatient (CLI) | payer MEDICARE, OTHER, SELFPAY ==
[2018-12-11 06:29] VITALS: BMI 34.0
--- NOTE | 2020-06-02 10:35 | DI.CT.S_ITS ---
PROCEDURE: CT UE LT WO CON INDICATIONS: LEFT SHOULDER PAIN TECHNIQUE: Noncontrast 1 mm thick sections acquired from the acromioclavicular joint to the inferior scapula, with coronal and sagittal reformatting. COMPARISON: None. FINDINGS: Image quality: Excellent. Bones: Moderate to severe glenohumeral joint osteoarthritic changes are noted with joint space narrowing, subchondral sclerosis and cyst formation, and prominent inferior osteophyte formation. Mild to moderate acromioclavicular joint osteoarthritic changes are noted. No fracture or dislocation. No suspicious intraosseous lesion. Visualized left upper ribs are intact. Soft tissues: There is suggestion of mild supraspinatus muscle atrophy. No significant joint effusion is seen. No calcified intra-articular loose body is noted. No gross full-thickness rotator cuff tendon rupture is identified. Visualized left lung field is clear. No left axillary lymphadenopathy. IMPRESSION: 1. Moderate to severe glenohumeral joint osteoarthritis and mild to moderate acromioclavicular joint osteoarthritis. No fracture or dislocation. No significant joint effusion. 2. No gross full-thickness rotator cuff tendon rupture. Mild supraspinatus muscle atrophy. Dictated by: Odilon Davalos M.D. on 06/02/2020 at 11:25 Approved by: Odilon Davalos M.D. on 06/02/2020 at 11:28
--- NOTE | 2020-06-02 10:36 | DI.RAD.S_ITS ---
PROCEDURE: FL ARTHROGRAM WRIST LT INDICATIONS: LEFT SHOULDER PAIN LEFT WRIST PAIN COMPARISON: None. TECHNIQUE: After informed consent had been obtained, the wrist was examined fluoroscopically, and a site chosen for injection of the radiocarpal compartment from a dorsal approach. Skin was prepped and draped in a sterile fashion and 1% lidocaine infiltrated from the skin down to the articular surface. A hypodermic needle was then introduced into the articular space and a modest amount of contrast medium was instilled confirming intra-articular needle tip placement. This was followed by approximately 4 mL of a dilute gadolinium solution. Needle was removed and dressing was applied. The patient experienced no complications throughout the procedure and left the fluoroscopic suite in no apparent distress. FINDINGS: A single fluoroscopic spot image demonstrates intra-articular location to injected iodinated contrast. IMPRESSION: Successful fluoroscopic-guided administration of dilute Gadolinium solution for wrist MR arthrogram. Dictated by: Manpreet Gutierrez M.D. on 06/02/2020 at 15:46 Approved by: Manpreet Gutierrez M.D. on 06/02/2020 at 15:46
--- NOTE | 2020-06-02 10:36 | DI.MRI.S_ITS ---
PROCEDURE: MR WRIST LT W CON INDICATIONS: LEFT SHOULDER PAIN LEFT WRIST PAIN TECHNIQUE: After the administration of 3-4 mL of dilute intra-articular Gadolinium contrast into the radiocarpal compartment, coronal T1 spin echo with fat saturation and T2 fast spin echo with fat saturation, axial T1 spin echo and T2 fast spin echo with fat saturation, sagittal T1 spin echo with and without fat saturation through the wrist. COMPARISON: None. FINDINGS: Image quality: Excellent. Bones and cartilage: Osteoarthritic changes are noted throughout wrist joints more prominent involving radiocarpal joint and 1st CMC joint. There is proximal migration of scaphoid with edema seen within proximal portion of the scaphoid. No acute fracture is noted. No other area of marrow signal abnormality. No evidence for avascular necrosis. No suspicious intraosseous lesion. Carpal ligaments: There is full-thickness rupture involving scapholunate ligament with gadolinium extravasation into the mid-carpal compartment. Widening of scapholunate interval is also seen. Lunotriquetral ligament is intact. The radioscaphocapitate and radiolunotriquetral ligaments appear intact. The arcuate ligament and short radiolunate ligament also appear normal. The dorsal intercarpal and radiotriquetral ligaments appear intact. On sagittal images, the pisohamate ligament appears intact. Triangular fibrocartilage complex: The triangular fibrocartilage disc, with its styloid and foveal lamina, appears intact. No gadolinium extravasation into the distal radioulnar joint. The adjacent meniscal homolog appears normal. The ulnar collateral ligament appears intact. The extensor carpi ulnaris tendon is normal in location and morphology. Tendons and soft tissues: The carpal tunnel structures appear normal, including the median nerve. The ulnar nerve appears normal within Guyon's canal. All six extensor tendon compartments demonstrate normal morphology, without pathologic tendon sheath fluid. No definite soft tissue ganglion cysts. IMPRESSION: 1. 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 Osteoarthritic changes throughout wrist joints. No fracture or dislocation. 2. Wrist tendons are grossly intact. 3. Triangular fibrocartilage complex is intact. Dictated by: Odilon Davalos M.D. on 06/02/2020 at 14:49 Approved by: Odilon Davalos M.D. on 06/02/2020 at 15:10
== END ==
PROVIDERS: Family Provider Physician Assistant Medical; PCP Physician Assistant Medical; Referring Provider Orthopaedic Surgery; Visit Provider Orthopaedic Surgery
DX: M25.512 Pain in left shoulder (principal); M19.012 Primary osteoarthritis, left shoulder; M25.532 Pain in left wrist; S63.392A Traumatic rupture of other ligament of left wrist, initial encounter
CPT/HCPCS: 25246; 73200; 73222; 77002

== ENCOUNTER → 2021-03-05 09:37 | Outpatient (CLI) | payer MEDICARE, OTHER, SELFPAY ==
[2018-12-11 06:29] VITALS: BMI 34.0
--- NOTE | 2021-03-05 09:39 | DI.RAD.S_ITS ---
PROCEDURE: XR CERVICAL SPINE 4V OR 5V INDICATIONS: NECK PAIN TECHNIQUE: 5 views of the cervical spine acquired. COMPARISON: [facility], CR, XR CERVICAL SPINE 2V OR 3V, 05/05/2019, 8:33. FINDINGS: Bones: Straightening of the normal lordotic curvature. Multilevel degenerative endplate sclerosis and spurring. Diffuse facet arthropathy. Moderate to severe narrowing of the C5-C6 disc space. No acute fracture identified. Soft tissues: Carotid atherosclerotic plaques incidentally noted. IMPRESSION: Multilevel cervical spondylosis and diffuse facet arthropathy most pronounced at C5-C6. No interval change since 05/05/19. Dictated by: Ezra Ace M.D. on 03/05/2021 at 11:07 Approved by: Ezra Ace M.D. on 03/05/2021 at 11:08
--- NOTE | 2021-03-05 09:39 | DI.RAD.S_ITS ---
PROCEDURE: XR LUMBAR SPINE MIN 4V INDICATIONS: BACK PAIN TECHNIQUE: 5 views of the lumbar spine were acquired, including bilateral oblique views. COMPARISON: [facility], CR, XR LUMBAR SPINE 2-3V, 05/29/2019, 10:46. FINDINGS: Bones: No definite acute fracture although exam sensitivity limited by severe discogenic changes. Posterior spinal fixation from L2-L5 with paraspinal gavi and pedicle screws. There also interbody cage grafts at these levels. Hardware appears intact. There is unchanged alignment. Severe diffuse disc height loss rather remaining lumbar spine although this appears unchanged since 05/29/19. Levoscoliosis of the lumbar spine as before. Grade 1 retrolisthesis of L1 on L2 and L4 on L5 which is grossly unchanged. Soft tissues: Overlying bowel gas pattern is normal. No suspicious soft tissue calcifications. Oblique images: No pars defects. IMPRESSION: Overall, unchanged examination. Redemonstrated postsurgical and severe spondylitic findings. Diffuse facet arthropathy Dictated by: Ezra Ace M.D. on 03/05/2021 at 11:31 Approved by: Ezra Ace M.D. on 03/05/2021 at 11:34
== END ==
PROVIDERS: Family Provider Physician Assistant Medical; PCP Physician Assistant Medical; Referring Provider Physical Medicine & Rehabilitation; Visit Provider Physical Medicine & Rehabilitation
DX: M48.062 Spinal stenosis, lumbar region with neurogenic claudication (principal); M47.26 Other spondylosis with radiculopathy, lumbar region; M47.22 Other spondylosis with radiculopathy, cervical region; M50.222 Other cervical disc displacement at C5-C6 level
CPT/HCPCS: 72050; 72110

== ENCOUNTER → 2021-04-20 11:27 | Outpatient (CLI) | payer MEDICARE, OTHER, SELFPAY ==
[2018-12-11 06:29] VITALS: BMI 34.0
[2021-04-20 13:23] LABS: COVID19 -Nasal RAPID Negative (Negative)
== END ==
PROVIDERS: Family Provider Physician Assistant Medical; PCP Physician Assistant Medical; Visit Provider Physician Assistant
DX: Z01.812 Encounter for preprocedural laboratory examination (principal); Z20.822 Contact with and (suspected) exposure to COVID-19
CPT/HCPCS: 87635; C9803

== ENCOUNTER 2021-04-21 14:58 | Outpatient (CLI) | payer MEDICARE, OTHER, SELFPAY ==
[2018-12-11 06:29] VITALS: BMI 34.0
[2021-04-21] VITALS (7 sets, daily range): BP systolic 97–150; BP diastolic 52–79; PULSE 80–85; RESP 14–22; TEMP 36.6; O2SAT 96–100
--- NOTE | 2021-04-21 15:02 | DI.RAD.S_ITS ---
PROCEDURE: PAIN L INTERLAMINAR/CAUDAL INJ INDICATIONS: SPONDYLOSIS COMPARISON: [facility], CR, XR LUMBAR SPINE MIN 4V, 03/05/2021, 9:39. FINDINGS: Fluoroscopic spot filming was performed to verify placement of spinal needles at the L1-L2 level(s), as labeled on the films. Appropriate location(s) of the needle tip(s) was confirmed by injection of iodinated contrast. IMPRESSION: Intraprocedural examination within normal limits. Dictated by: Garry Hammer M.D. on 04/21/2021 at 15:53 Approved by: Garry Hammer M.D. on 04/21/2021 at 15:53
[2021-04-21] MEDS: fentaNYL 100 MCG/2 ML INJ 50 MCG IV (16:15)
[2021-04-21] MEDS: BUPIVACAINE 0.25% (PF) VIAL 2 ML INJ (16:19)
[2021-04-21] MEDS: IOPAMIDOL 15 ML VIAL 3 ML INJ (16:19)
[2021-04-21] MEDS: MIDAZOLAM 5 MG/5 ML VIAL IV (16:19)
[2021-04-21] MEDS: BETAMETHASONE 30 MG/5 ML MDV 6 MG INJ (16:20)
[2021-04-21] MEDS: DEXAMETHASONE 10 MG/ML VIAL 20 MG INJ (16:20)
--- NOTE | 2021-04-21 16:30 | P.PCN_ITS ---
Date/Time/Diagnoses Date of procedure: 04/21/21 Time of procedure: 16:31 Pre-procedure diagnosis: 1. HNP WITH RADICULAR FEATURES, 2. MULTILEVEL CENTRAL STENOSIS, Post-procedure diagnosis: same Procedure Notes Procedure: 1. FLUOROSCOPICALLY GUIDED CONTRAST CONTROLLED INTERLAMINAR EPIDURAL STEROID INJECTION - L1/2 Indications: Yanira is referred by PAC Vijay for treatment of Bilateral Foraminal Stenosis L>R LE symptoms. Physician: Jaylan Townsend Total Fluoroscopy time (seconds): 5 Total sedation minutes: 8 Complications: none Procedure in detail & Post-procedure care: FINDINGS Multilevel Central Spinal Stenosis with Nerve Root Compression DESCRIPTION OF PROCEDURE Fluoroscopically guided, contrast-controlled L1/2 translaminar epidural steroid injection. Following review of allergy and review of potential side effects and complications, including, but not necessarily limited to, infection, allergic reaction, local tissue breakdown, temporary as well as permanent nerve injury, paralysis, stroke and possible , the patient indicated that the patient understood and agreed to proceed. An informed consent document was signed by the patient, witnessed by a nurse, and placed in the patient's chart. Additionally, other treatment options including modalities, medications, and physical therapy were reviewed with the patient. After review of previous anaesthesic history and IV conscious sedation the patient was deemed safe to proceed with todays procedure with IV conscious sedation as ASA class II designation. Safety time-out was performed to confirm patient ID, procedure to be performed and site of procedure. IV sedation was accomplished with a combination of 2mg of Versed and 50mcg of Fentanyl was administered by the RN after DO order, titrated to patient comfort during the course of the procedure while the patient remained responsive to all verbal commands In the prone position, following sterile prep and drape of the lumbar region, the L1/2 translaminar space was identified fluoroscopically. The skin was anesthetized via a 25-gauge, 1.5-inch needle with 1% lidocaine solution. At this point, a 22-gauge short bevel spinal needle was atraumatically introduced and advanced under fluoroscopic guidance into the region of the L1/2 translaminar space. Depth was confirmed on lateral view. Radiological data, including multiple fluoroscopic views of the lumbar spine, reveal a spinal needle at the L1/2 translaminar space. Lateral views then show placement of the needle in the epidural space. Subsequent views show contrast material flowing superiorly and inferiorly in the epidural space. No vascular or intrathecal uptake is observed. At this point, using loss of resistance technique with saline and air, the epidural space was entered. This was confirmed following negative aspiration with injection of approximately 1.5 cc of Isovue 200, showing excellent epidural flow without vascular or intrathecal uptake. At this point, 1cc of 1% lidocaine solution combined with 4cc or 20mg of dexamethasone and 12mg of betamethasone was injected without incident. The patient tolerated the procedure well without signs or symptoms of complications prior to transfer to the recovery area continued monitoring without incident. The patient was then transferred to the recovery area where they were observed for an appropriate period of time after the injection. The patient reported a VAS score of 6 prior to the procedure and a post- procedure VAS of 0. POST OP INSTRUCTIONS The patient was provided a Pain Log to continue to record their response to the target-specific procedure prior to follow-up visit with their referring physician. Additionally, specific post-injection care instructions and a contact number to our office were provided if concerns arise regarding possible complications associated with the procedure are suspected.
== END 2021-04-21 16:52 | disposition home or self-care (01) ==
LOC: RAD 15:02
PROVIDERS: Family Provider Physician Assistant Medical; PCP Physician Assistant Medical; Referring Provider Physical Medicine & Rehabilitation; Visit Provider Physical Medicine & Rehabilitation
DX: M48.062 Spinal stenosis, lumbar region with neurogenic claudication (principal); M51.16 Intervertebral disc disorders with radiculopathy, lumbar region
CPT/HCPCS: 62323; J0702; J1100; J2250; J3010

== ENCOUNTER → 2021-10-21 11:13 | Outpatient (CLI) | payer MEDICARE, OTHER, SELFPAY ==
[2018-12-11 06:29] VITALS: BMI 34.0
--- NOTE | 2021-10-21 | DI.CT.S_ITS ---
PROCEDURE: CT UE LT WO CON INDICATIONS: Primary osteoarthritis, left shoulder TECHNIQUE: Noncontrast 1-1.5 mm thick sections acquired from the acromioclavicular joint to the inferior scapula, with coronal and sagittal reformatting. COMPARISON: [facility], CT, CT UE LT WO CON, 06/02/2020, 10:46. FINDINGS: Image quality: Excellent. Bones: Again noted is severe glenohumeral joint osteoarthritis with marked inferior joint space narrowing, extensive subchondral sclerosis and cyst formation and prominent inferior marginal osteophyte formation not significantly changed from prior study. Mild to moderate acromioclavicular joint osteoarthritic changes are again noted and unchanged. No fracture or dislocation. No suspicious bony lesion. Visualized left upper ribs are intact. Soft tissues: No gross soft tissue abnormality. No gross full-thickness rotator cuff tendon rupture. Mild supraspinatus a present. No abnormal soft tissue calcifications are seen. No significant joint effusion. Visualized left lung field is clear. No axillary lymphadenopathy. IMPRESSION: 1. Moderate to severe glenohumeral joint osteoarthritis and mild to moderate acromioclavicular joint osteoarthritis not significantly changed from prior study. No fracture or dislocation. No suspicious intraosseous lesion. 2. No gross full-thickness rotator cuff tendon rupture. Mild supraspinatus muscle atrophy unchanged from prior study. No abnormal soft tissue calcifications. Dictated by: Odilon Davalos M.D. on 10/21/2021 at 13:00 Approved by: Odilon Davalos M.D. on 10/21/2021 at 13:49
== END ==
PROVIDERS: Family Provider Physician Assistant Medical; PCP Physician Assistant Medical; Referring Provider Orthopaedic Surgery; Visit Provider Orthopaedic Surgery
DX: M19.012 Primary osteoarthritis, left shoulder (principal)
CPT/HCPCS: 73200

== ENCOUNTER → 2021-12-14 09:10 | Outpatient (CLI) | payer MEDICARE, OTHER, SELFPAY ==
[2018-12-11 06:29] VITALS: BMI 34.0
[2021-12-14 11:19] LABS: COVID19 -Nasal RAPID Negative (Negative)
== END ==
PROVIDERS: Family Provider Physician Assistant Medical; PCP Physician Assistant Medical; Visit Provider Family Medicine Sleep Medicine
DX: Z20.822 Contact with and (suspected) exposure to COVID-19 (principal)
CPT/HCPCS: 87635; C9803

== ENCOUNTER 2021-12-16 09:15 | Day surgery (SDC) | payer MEDICARE, OTHER, SELFPAY ==
[2018-12-11 06:29] VITALS: BMI 34.0
[2021-12-07 13:01] VITALS: BMI 34.8
[2021-12-16] VITALS (10 sets, daily range): BP systolic 106–128; BP diastolic 54–67; PULSE 19–101; RESP 12–20; TEMP 36.2–36.7; O2SAT 93–98; BMI 34.8
--- NOTE | 2021-12-16 09:28 | DI.RAD.S_ITS ---
PROCEDURE: XR SHOULDER LT MIN 2V INDICATIONS: post op total shoulder TECHNIQUE: 2 views of the shoulder were acquired. COMPARISON: [facility], CR, XR SHOULDER LT MIN 2V, 05/28/2019, 14:40. FINDINGS: Bones: There are postsurgical changes consistent with left glenohumeral joint arthroplasty with expected alignment. No acute fractures. Soft tissues: There are overlying postsurgical changes including soft tissue gas and soft tissue swelling. IMPRESSION: 1. Expected postsurgical changes status post left glenohumeral joint arthroplasty. Dictated by: Mitch Valencia M.D. on 12/16/2021 at 13:47 Approved by: Mitch Valencia M.D. on 12/16/2021 at 13:51
[2021-12-16] MEDS: ACETAMINOPHEN 325 MG TABLET 975 MG PO (10:02)
[2021-12-16] MEDS: CELECOXIB 200 MG CAPSULE PO (10:03)
[2021-12-16] MEDS: PREGABALIN 75 MG CAPSULE PO (10:03)
[2021-12-16] MEDS: LACTATED RINGERS 1,000 ML 42 ML IV (10:06)
--- NOTE | 2021-12-16 10:25 | PM.PREOP ---
Pre-operative Note COVID-19 COVID-19 status: Negative Result date/Date tested (Pos, Neg/Pending): 01/11/22 Criteria for continued procedure: Increased loss of function, Continuing or worsening of significant or severe pain and Non-surgical alternatives not available or appropriate per current SOC Interval Note History & Physical reviewed/Exam performed by Physician: Yes Changes to H&P: No
--- NOTE | 2021-12-16 10:40 | SUR.OPER ---
Beach chair with Schlein shoulder positioner. Lower body on padded OR bed. Head in foam padded head cradle, secured with straps. Non-operative arm secured <90 degrees abduction. Pillow under knees. Safety belt at thigh. Cloth tape over blanket over lower legs.
--- NOTE | 2021-12-16 11:02 | SUR.PREOP ---
Block start time [0938] . Monitoring initiated and maintained throughout procedure. Oxygen and medications given per anesthesiologist instructions. Patient remained stable throughout procedure, no adverse reactions noted. Block end time [1052].
[2021-12-16] MEDS: CEFAZOLIN 2 GM/20 ML SYRINGE IV (11:10)
[2021-12-16] MEDS: TRANEXAMIC ACID 1,000 MG VIAL 1000 MG INJ ×2 (11:10→12:43)
--- NOTE | 2021-12-16 11:35 | PM.PROC.1 ---
Procedures Date/Time Date of procedure: 12/16/21 Time of procedure: 10:40 General Procedure description: Ultrasound guided interscalene brachial plexus nerve block for post op pain control after left total shoulder arthroplasty by Dr. Tamayo. Risk and benefits of procedure discussed with patient. ASA monitoring applied to patient. O2 given via nasal cannula. 2 mg Versed and 50 mcg fentanyl given for procedural sedation. Skin site was prepped with chlorhexidine and allowed to fully dry. Sterile gloves, mask, hat and probe cover were used to maintain sterility. 2% lidocaine and 30ga needle was used to make a small skin wheal at needle insertion site. Under ultrasound guidance, a 21ga 50mm Pajunk needle was directed into the interscalene groove (middle/anterior scalenes) near the brachial plexus. Patient reported no parasthesias. After negative aspiration, 20 mL 0.5% ropivacaine and 10mg dexamethasone were injected around brachial plexus. Patient tolerated procedure well.
[2021-12-16] MEDS: THROMBIN (RECOMBINANT) 5,000 UNIT VIAL 5000 UNIT TOP (11:43)
[2021-12-16] MEDS: BUPIVACAINE 0.5% (PF) 30 ML, EPINEPHrine 0.15 MG INJ (11:44)
--- NOTE | 2021-12-16 12:58 | P.OP_ITS ---
Operative Date/Time/Diagnoses Date of procedure: 12/16/21 Time of procedure: 12:58 Pre-op diagnosis: Left shoulder osteoarthritis Post-op diagnosis: same Procedure & Clinicians Procedure: Left total shoulder replacement Same procedure as scheduled: Yes Indications: The patient has had progressively worsening left shoulder pain with radiographic changes consistent with arthritis. Non-operative management has failed and the patient has requested total shoulder replacement. The risks, benefits and alternatives to surgery were discussed with the patient prior to proceeding. Risks discussed included, but were not limited to, failure to relieve pain, stiffness, infection, nerve damage, deep venous thrombosis, pulmonary embolism, stroke, coma, heart attack, permanent paralysis and , as well as the potential need for eventual revision of the prosthetic. Surgeon: John Tamayo Concrete Pump Operator: Mikala Navas Click Yes if Unassisted: No Anesthesia Type: General, Peripheral nerve block and Local Operative Notes Findings: Severe osteoarthritis with extremely large humeral osteophyte. Closure Type: primary Specimen(s): none sent Prosthetic devices, grafts, tissues, transplants, or devices: Implants used in this procedure manufactured by the [facility] and included a canal sparing humeral stem and neck size 2 with a neutral neck and a 46 mm x 16 mm neutral humeral head. There was a 46 mm all-polyethylene pegged E +glenoid. Applied: implant(s) Estimated Blood Loss (mL): 150 Blood products transfused: none Procedure in detail: The patient was seen in the pre-operative area, where the patient identified the left shoulder as the operative site and this was marked with my initials. The patient received pre-operative antibiotics, underwent an interscalene block, and was taken to the operating room and placed on the operative table in the supine position. After satisfactory anesthesia, a full ?time out? was performed. The patient was repositioned in the ?beach chair? position using a dedicated positioner. All pressure points were well padded, and the knees were slightly bent to prevent tension on the sciatic nerves. The left arm was prepared from the fingers to the base of the neck with ChloroPrep in the usual fashion and draped through sterile drapes. An approximately 12 cm incision was created, starting at the clavicle above the coracoid process and extended towards the deltoid insertion. The deltopectoral interval was used to access the shoulder. The cephalic vein was taken laterally. A self retaining retractor was placed. The upper centimeter of the pectoralis major tendon was released. The ?three sisters? were identified and cauterized. The axillary nerve was palpated and protected throughout the case. The biceps groove was opened. The biceps tendon was already tenodesed in the groove. The subscapularis was released from the lesser tuberosity with a subscapularis tenotomy and tagged for later repair. The shoulder was dislocated and a cutting guide was used for the proximal humeral osteotomy in 30 degrees of retroversion. Bone density was checked by palpation and thought to be satisfactory for canal sparing prosthetic. The guide pin was placed in the center of the humeral head using a trial humeral head as a guide. The proximal colored Reamer was used followed by the drill for the central portion of the stem of the body. The size 2 broach was placed. A proximal humeral protector was then placed. We then removed the self-retaining retractor and placed retractors to access the glenoid. The subscapularis was released with a ?360 degree release? with care being taken to protect the axillary nerve with the inferior portion of this procedure. The remnant of labrum and biceps stump were removed. The appropriate size reamer was chosen with the glenoid sizer, and the guide pin placed. The glenoid was appropriately reamed. The guide for the peripheral holes was used and the center hole enlarged. The trial glenoid was placed with good stability. We then cemented the final implant into place after irrigating the peg holes and drying them with thrombin-soaked Gelfoam. We returned our attention to the humerus, a trial humeral head was applied and a trial reduction performed. Stability was checked with 50% posterior translation with spontaneous reduction, 45? external rotation with the subscapularis held in the repaired position, and 70? internal rotation in the ?scare [place] position. This was felt to be satisfactory and the appropriate implants were opened. The humeral prosthetic was impacted into the humerus. The humeral head was applied when the stem was still slightly proud and impacted to both seat the head and fully seat the stem. The joint was relocated one final time. The joint was irrigated and the subscapularis repaired to the lateral remnant with multiple [id number] sutures of #2 Ethibond. Top of the subscapularis was closed to the leading edge of the supraspinatus with a figure of 8 #2 Ethibond to close the rotator interval. The deltopectoral interval was closed with interrupted 0 Vicryl. The subcutaneous layer was closed with 3-0 Vicryl, and the skin with a running 3-0 V-Lock suture and Dermabond. An Aquacel Ag dressing was applied, the patient?s arm was placed in a sling, and the patient was taken to recovery having tolerated the procedure well. Complications: none Post-operative Condition: stable Disposition: PACU Plan for aftercare: The patient will be discharged today. She may use her hand in front of her body below shoulder level to lift 1-2 lb for the 1st 2 weeks. She will then be established in physical therapy and gently advanced through a total shoulder protocol.
[2021-12-16] MEDS: OXYCODONE IR 5 MG TABLET PO (13:25)
--- NOTE | 2021-12-16 17:53 | SUR.PHASEII ---
Late entry: Incentive spirometer given to pt with instruction. Pt stated she was ready to go. d/c instructions discussed by BARTOLO Murray, pt voiced a understanding. I assisted pt to dress. Pt left when ready and left in stable condition.
== END 2021-12-16 14:30 | disposition home or self-care (01) ==
LOC: OR 09:17 → AC 12:58
PROVIDERS: Family Provider Physician Assistant Medical; PCP Physician Assistant Medical; Referring Provider Orthopaedic Surgery; Visit Provider Orthopaedic Surgery
PROC: (CPT 23472; principal; 2021-12-16 11:00)
DX: M19.012 Primary osteoarthritis, left shoulder (principal); M25.712 Osteophyte, left shoulder; E11.9 Type 2 diabetes mellitus without complications; I10 Essential (primary) hypertension; E78.5 Hyperlipidemia, unspecified; Z79.84 Long term (current) use of oral hypoglycemic drugs
CPT/HCPCS: 23472; 73030; C1776; J0171; J0690; J1100; J2250; J2405; J2704; J3010

== ENCOUNTER → 2022-04-01 15:03 | Outpatient (CLI) | payer MEDICARE, OTHER, SELFPAY ==
[2018-12-11 06:29] VITALS: BMI 34.0
--- NOTE | 2022-04-01 | DI.MG.S_ITS ---
BILATERAL DIGITAL SCREENING MAMMOGRAM 3D/2D WITH CAD: 04/01/2022 CLINICAL: Routine screening. Family history of breast cancer. Comparison is made to exams dated: 02/17/2021 mammogram, 10/19/2019 mammogram, 10/19/2019 mammogram, 10/14/2017 mammogram, and 08/09/2016 mammogram - [facility]. There are scattered fibroglandular elements in both breasts. Current study was also evaluated with a Computer Aided Detection (CAD) system. No significant masses, calcifications, or other findings are seen in either breast. There has been no significant interval change. IMPRESSION: NEGATIVE There is no mammographic evidence of malignancy. A 1 year screening mammogram is recommended. This exam was interpreted at Station ID: [id number]. NOTE: For mammograms, a report in lay terms will be sent to the patient. Approximately 15% of breast malignancies will not be visualized mammographically. In the management of a palpable breast mass, a negative mammogram must not discourage biopsy of a clinically suspicious lesion. Electronically Signed By: Kera skinner/howie:04/02/2022 09:22:48 letter sent: Normal Exam ACR BI-RADS Category 1: Negative 3341F
== END ==
PROVIDERS: Family Provider Physician Assistant Medical; PCP Physician Assistant Medical; Referring Provider Physician Assistant Medical; Visit Provider Physician Assistant Medical
DX: Z12.31 Encounter for screening mammogram for malignant neoplasm of breast (principal); Z80.3 Family history of malignant neoplasm of breast
CPT/HCPCS: 77063; 77067

== ENCOUNTER → 2022-09-25 08:06 | Outpatient (CLI) | payer MEDICARE, OTHER, SELFPAY ==
[2018-12-11 06:29] VITALS: BMI 34.0
--- NOTE | 2022-09-25 08:09 | DI.RAD.S_ITS ---
PROCEDURE: XR WRIST RT MIN 3V INDICATIONS: wrist pain TECHNIQUE: 4 views of the wrist were acquired. COMPARISON: None. FINDINGS: Bones: No fractures or dislocations. No suspicious bony lesions. Periarticular osteophyte formation at the scaphoid trapezial and 1st carpometacarpal joints, as well as the 1st metacarpophalangeal joint and the interphalangeal joints of the digits. Scaphoid view: Negative Soft tissues: Calcification of the triangular fibrocartilage complex. IMPRESSION: 1. Osteoarthritis. 2. Chondrocalcinosis. Differential diagnosis includes but is not limited to hemochromatosis, hyperparathyroidism and CPPD. Dictated by: Miguel Jaquez M.D. on 09/25/2022 at 7:30 Approved by: Miguel Jaquez M.D. on 09/25/2022 at 7:30
== END ==
PROVIDERS: Family Provider Physician Assistant Medical; PCP Physician Assistant Medical; Referring Provider Nurse Practitioner Family; Visit Provider Nurse Practitioner Family
DX: M18.11 Unilateral primary osteoarthritis of first carpometacarpal joint, right hand (principal); M19.031 Primary osteoarthritis, right wrist; M19.041 Primary osteoarthritis, right hand; M11.231 Other chondrocalcinosis, right wrist; M25.531 Pain in right wrist
CPT/HCPCS: 73110

== ENCOUNTER → 2023-02-18 13:25 | Outpatient (CLI) | payer MEDICARE, OTHER, SELFPAY ==
[2018-12-11 06:29] VITALS: BMI 34.0
--- NOTE | 2023-02-18 | DI.CT.S_ITS ---
PROCEDURE: CT SINUS SCREEN WO CON INDICATIONS: Chronic pansinusitis TECHNIQUE: Noncontrast 3.0 mm axial images acquired from the frontal sinuses to the mid-sella, with coronal and sagittal reformats. For radiation dose reduction, the following was used: automated exposure control, adjustment of mA and/or kV according to patient size. COMPARISON: None. FINDINGS: Image quality: Excellent. Maxillary Sinuses: No bony remodeling or destruction. Sinuses are clear. Ethmoid Air Cells: No bony remodeling or destruction. Sinuses are clear. Sphenoid Sinuses: No bony remodeling or destruction. Sinuses are clear. Frontal Sinuses: No bony remodeling or destruction. Sinuses are clear. Ostiomeatal Complexes: Ostiomeatal complexes are patent. No Yanelis cells. Miscellaneous: Visualized intra-orbital contents are normal. No lorna bullosa or paradoxical turbinate curvature. There is minimal rightward nasal septal deviation. IMPRESSION: No significant active paranasal sinus disease is seen. Dictated by: Garry Hammer M.D. on 02/18/2023 at 14:22 Approved by: Garry Hammer M.D. on 02/18/2023 at 14:23
== END ==
PROVIDERS: Family Provider Physician Assistant Medical; PCP Physician Assistant Medical; Referring Provider Otolaryngology; Visit Provider Otolaryngology
DX: S02.2XXA Fracture of nasal bones, initial encounter for closed fracture (principal); J34.89 Other specified disorders of nose and nasal sinuses; J32.4 Chronic pansinusitis; R51.9 Headache, unspecified
CPT/HCPCS: 70486

== ENCOUNTER → 2023-04-06 07:28 | Outpatient (CLI) | payer MEDICARE, OTHER, SELFPAY ==
[2018-12-11 06:29] VITALS: BMI 34.0
--- NOTE | 2023-04-06 | DI.MG.S_ITS ---
BILATERAL DIGITAL SCREENING MAMMOGRAM 3D/2D WITH CAD: 04/06/2023 CLINICAL: Routine screening. Family history of breast cancer. Comparison is made to exams dated: 04/01/2022 mammogram - [facility], 02/17/2021 mammogram, 10/19/2019 mammogram, and 10/18/2018 mammogram - [facility]. There are scattered areas of fibroglandular density in both breasts (category b / 25%-50% glandular tissue). Current study was also evaluated with a Computer Aided Detection (CAD) system. There are benign vascular calcifications in the right breast. No significant masses, calcifications, or other findings are seen in either breast. There has been no significant interval change. IMPRESSION: BENIGN There is no mammographic evidence of malignancy. A 1 year screening mammogram is recommended. Based on the Tyrer Cuzick model (a risk assessment model) the patient's lifetime risk is 11.9% and her 10 year risk is 8.9%. According to the ACR, ACS, and NCCN guidelines, an annual breast MRI exam along with mammogram is recommended if the patient's lifetime risk is 20% or greater. This exam was interpreted at Station ID: [id number]. NOTE: For mammograms, a report in lay terms will be sent to the patient. Approximately 15% of breast malignancies will not be visualized mammographically. In the management of a palpable breast mass, a negative mammogram must not discourage biopsy of a clinically suspicious lesion. Electronically Signed By: David adair/howie:04/06/2023 14:40:53 letter sent: Normal Exam ACR BI-RADS Category 2: Benign Finding(s) 3342F
== END ==
PROVIDERS: Family Provider Physician Assistant Medical; PCP Physician Assistant Medical; Referring Provider Physician Assistant Medical; Visit Provider Physician Assistant Medical
DX: Z12.31 Encounter for screening mammogram for malignant neoplasm of breast (principal); Z80.3 Family history of malignant neoplasm of breast
CPT/HCPCS: 77063; 77067

== ENCOUNTER → 2023-04-18 09:57 | Outpatient (CLI) | payer MEDICARE, OTHER, SELFPAY ==
[2018-12-11 06:29] VITALS: BMI 34.0
--- NOTE | 2023-04-18 | DI.RAD.S_ITS ---
PROCEDURE: FL BARIUM SWALLOW W SPEECH INDICATIONS: DYSPHAGIA COMPARISON: TECHNIQUE: Examination was conducted in conjunction with speech pathology per standard protocol. In the lateral projection, filming was performed of the patient swallowing. AP projection filming may also be performed with patient swallowing. COMPARISON: [facility], , MM SCREENING MAMMO BI, 04/06/2023, 7:55. FINDINGS: Function: The oral preparatory phase appears normal, with proper containment. The subsequent oral propulsive phase, pharyngeal phase, and esophageal phase of swallowing also appear normal with all proffered substances. No laryngotracheal penetration or aspiration. No pathologic vallecular pooling. Morphology: No cricopharyngeal bar is identified. No cervical esophageal webs. No Zenker's diverticulum. No strictures. There is severe esophageal dysmotility. A calibrated barium tablet was obstructed at the gastroesophageal junction. IMPRESSION: 1. No laryngeal penetration or aspiration. Please see separate speech pathologists report for detail. 2. Severe esophageal dysmotility. 3. Obstruction of calibrated barium tablet at the GE junction, which could be caused by GE junction stricture or mass. Recommend EGD for follow-up evaluation. Dictated by: Adam Bledsoe M.D. on 04/18/2023 at 11:28 Approved by: Adam Bledsoe M.D. on 04/18/2023 at 11:29
--- NOTE | 2023-04-18 13:11 | ST.SWALLOW ---
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 pt reports that she has been coughing during meals, near the middle of the meal. She reported no specific type of foods/liquids would trigger the coughing ( she did mention to Dr Hills that liquids triggered her cough). Pt indicated that she does try to eat slowly, drink frequently during meals andchews her foods very well. Pt stated that about [facility] through her meals she begins to cough. She did report an emesis of undigested food once a few months ago. Subjective Observations Pt was seated in the fluoroscopy chair. procedures and instructions were described for the pt. She indicated that she understood and agreed to proceed. Patient Positioning Position View Lat-A/P Imaging Lateral View Textures Administered Trials Presented Thin Liquid via Spoon (IDDSI 0 ),Thin Liquid via Cup (IDDSI 0 ),Extremely Thick Liquid via Spoon (IDDSI 4),Regular (IDDSI 7) Barium Tablet Yes The IDDSI Framework Protocol: IDDSI.1 Oral Impairment Source: The Modified Barium Swallow Impairment Profile (MBSImP??) Lip Closure No labial escape Tongue Control During Bolus Hold Cohesive bolus between tongue to palatal seal Bolus Preparation/Mastication Timely & efficient chewing & mashing Bolus Transport/Lingual Motion Brisk tongue motion Initiation of Pharyngeal Swallow Bolus head at pyriforms Additional Oral Impairment Observations OME and DKS were observed to be WFL. Slight disorganized lateralization of the tongue. Mastication was adequate with a rotary chew. No oral stasis observed. Pharyngeal Impairment Source: The Modified Barium Swallow Impairment Profile (MBSImP??) Soft Palate Elevation No bolus between soft palate & pharyngeal wall Laryngeal Elevation Min.sup.move. thyroid cart. w/ min.approx.arytenoids to epiglot.petiole Anterior Hyoid Excursion Partial anterior movement Epiglottic Movement Complete inversion Laryngeal Vestibular Closure Complete; no air/contrast in laryngeal vestibule Pharyngeal Stripping Wave Present - diminished Pharyngoesophageal Segment Opening Complete distention & complete duration; no obstruction of flow Tongue Base Retraction Narrow column of contrast/air between tongue base & post. pharyngeal wall Pharyngeal Residue Collection of residue within/ on pharyngeal structures Location Diffuse (>3 areas) Additional Pharyngeal Impairment Tongue base weakness was noted Observations to negativiely impact the hyolaryngeal elevation and movement. Epiglottic inversion and the laryngeal seal were observed to be WNL. Pharyngeal residue was observed to be diffuse throughout the pharynx. A/P View Textures Administered Trials Presented Thin Liquid via Spoon (IDDSI 0 ) The IDDSI Framework Protocol: IDDSI.1 A/P View Observations Pharyngeal Contraction Complete Esophageal Clearance Upright Position Esophageal retention Esophageal Function Slowed Clearing,Poor Motility, Stasis,Narrowing Additional A-P Observations In the AP position, there was esophageal retention noted in the lower half of the esophagus. Proximal to the LES, there was a constriction of the esophagus that would allow small amounts of the esophageal contents pass to the stomach slowly. The barium tablet was not able to enter the stomach. The MBSS ended prior to the tablet clearing the esophagus. Recommendation for a GI consult to further assess the Esophagus/LES. Clinical Impressions Dysphagia Type Esophageal Findings Relative to the pt's cough, it appeared that as the esophagus filled, the pt began to cough. This would explain her stating that the coughing starts mid-meal with the fullness of the esophagus triggering a cough response. Patient Appropriate for Therapy No Recommendations Diet Liquids Order Thin (IDDSI 0) Diet Order Regular (IDDSI 7) Medication Recommendation Whole in Carrier,Crushed in Carrier,One at a Time Aspiration Precautions Recommended Precautions Upright at 90 Degrees, Alternate Liquids/Solids, Frequent Rest Periods,Small Bites/Sips Additional Precautions HOB elevated to allow for gravity assist is esophageal emptying Treatment Plan Recommended Referrals GI Consult Therapy Strategy Recommendations Sitting Upright (90 deg),Small Bites and Sips,Alternate Liquids/Solids
== END ==
PROVIDERS: Family Provider Physician Assistant Medical; PCP Physician Assistant Medical; Referring Provider Otolaryngology; Visit Provider Otolaryngology
DX: K22.4 Dyskinesia of esophagus (principal)
CPT/HCPCS: 74230; 92611

== ENCOUNTER 2023-05-12 10:43 | Day surgery (SDC) | payer MEDICARE, OTHER, SELFPAY ==
[2018-12-11 06:29] VITALS: BMI 34.0
[2023-05-12] VITALS (8 sets, daily range): BP systolic 95–145; BP diastolic 59–76; PULSE 70–107; RESP 16–78; TEMP 35.7–36.8; O2SAT 16–98; BMI 34.0
[2023-05-12] MEDS: LACTATED RINGERS 1,000 ML 150 ML IV (11:30)
--- NOTE | 2023-05-12 12:53 | PM.HP.1 ---
History of Present Illness History of Present Illness Date Patient Seen: 05/12/23 Time Patient Seen: 12:53 Chief complaint: SD Narrative: Yanira is a 72-year-old woman who is here for colonoscopy. She has not had a colonoscopy in over 10 years. She does not have any known family history of colon cancer. She does not believe she has had polyps removed in the past. [facility] Medical History (Updated 05/12/23 @ 12:54 by Benjamin Wild MD) Anesthesia Bilateral shoulder pain Bronchitis Depression Diabetes Diverticulosis Hepatomegaly Herniated nucleus pulposus, C5-6 HLD (hyperlipidemia) Hx of prolonged Q-T interval on ECG Osteoarthritis Pneumonia Pulmonary nodules Rheumatoid arthritis Sciatica CARLY (stress urinary incontinence, female) Surgical History (Updated 12/07/21 @ 13:35 by Mena Wynn RN) History of arthroplasty of left knee History of arthroplasty of left shoulder History of arthroplasty of right knee History of section History of hysterectomy History of lumbar spinal fusion (11/17/17) History of lumbar surgery History of total replacement of right shoulder joint (12/11/18) Hx of cholecystectomy Hx of tonsillectomy Hx of umbilical hernia repair Status post cataract extraction of both eyes with insertion of intraocular lens (~2017) Family History (Updated 12/07/21 @ 13:30 by Mena Wynn RN) Mother Breast cancer Mother Breast cancer Father Diabetes mellitus Other Blood clotting disorder Social History household members: spouse Smoking Status: Never smoker alcohol intake: current Meds Home Medications and Allergies Home Medications Medication Instructions Recorded Confirmed Type lisinopril 10 mg tablet 10 mg PO QAM ##0 05/11/10 05/12/23 History metformin 1,000 mg tablet 1,000 mg PO QPM ##0 05/11/10 05/12/23 History duloxetine 60 mg capsule,delayed 60 mg PO HS ##0 11/09/17 05/12/23 History release (Cymbalta) simvastatin 40 mg tablet 20 mg PO BEDTIME 11/27/18 05/12/23 History sitagliptin phosphate 100 mg 100 mg PO DAILY 11/27/18 05/12/23 History tablet (Januvia) tolterodine 4 mg capsule,extended 4 mg PO BEDTIME 11/27/18 12/07/21 History release 24 hr (Detrol LA) lidocaine 5 % topical patch 1 patch topical DAILY axial back 06/12/19 05/12/23 Rx pain #30 ea gabapentin 300 mg capsule 600 mg PO TID PRN Nerve pain 12/07/21 05/12/23 History (Neurontin) glimepiride 2 mg tablet 2 mg PO QAM 12/07/21 05/12/23 History losartan 50 mg tablet 50 mg PO QPM 12/07/21 05/12/23 History triamterene 37.5 1 tab PO DAILY 12/07/21 05/12/23 History mg-hydrochlorothiazide 25 mg tablet metoprolol tartrate 50 mg tablet 50 mg PO DAILY 12/16/21 05/12/23 History Allergies Allergy/AdvReac Type Severity Reaction Status Date / Time erythromycin base Allergy Intermediate HIVES, Verified 07/15/21 12:09 [ERYTHROMYCIN BASE] HYPERVENTILATING morphine [MORPHINE] Allergy Intermediate LUMBAR Verified 07/15/21 12:09 ITCHING, RASH Exam Vital Signs (past 8 hours): - 05/12/23 11:06 Temperature 96.3 F L Pulse Rate 72 Respiratory Rate 16 Blood Pressure 145/76 H Pulse Oximetry 96 Oxygen Delivery Method Room Air Oxygen Delivery Method Room Air Const General: No acute distress Assessment & Plan Assessment and plan (1) Colon cancer screening: Status: Acute Plan We reviewed the risks and benefits of colonoscopy for colon cancer screening and she would like to proceed.
--- NOTE | 2023-05-12 14:41 | PM.OP.COLON ---
Operative Date/Time/Diagnoses Date of procedure: 05/12/23 Time of procedure: 14:41 Pre-op diagnosis: Colon cancer screening Post-op diagnosis: same Procedure & Clinicians Study performed: Colonoscopy Same procedure as scheduled: Yes Surgeon: Benjamin Wild Procedure Notes Procedure in detail: Surgeon: Benjamin Wild MD Anesthesia: Nitin Tovar CRNA Procedure: The patient was brought to the endoscopy suite, placed in left lateral decubitus position. The patient was connected to monitoring devices. A time-out was performed. Sedation was administered. Once the patient was adequately sedated, a digital rectal exam was performed and was normal. The scope was then inserted and advanced to the cecum where the appendiceal orifice was identified and photographed. The scope was then slowly withdrawn over greater than 6 minutes. The mucosa was thoroughly inspected. No abnormalities were found. The scope was retroflexed in the rectum. No abnormalities were seen. The scope was straightened and removed. The patient was awakened and brought to recovery. Scope withdrawal time: 8 minutes Sedation time: 15 minutes EBL: 0 Findings: Normal colon Post-procedure Disposition: PACU
== END 2023-05-12 15:15 | disposition home or self-care (01) ==
PROVIDERS: Family Provider Physician Assistant Medical; PCP Physician Assistant Medical; Referring Provider Surgery; Visit Provider Surgery
PROC: 0DJD8ZZ Inspection of Lower Intestinal Tract, Via Natural or Artificial Opening Endoscopic (ICD-10-PCS; CPT 45378; principal; 2023-05-12 14:00)
DX: Z12.11 Encounter for screening for malignant neoplasm of colon (principal)
CPT/HCPCS: G0121; J2704

== ENCOUNTER → 2023-06-23 15:37 | Outpatient (CLI) | payer MEDICARE, OTHER, SELFPAY ==
[2018-12-11 06:29] VITALS: BMI 34.0
--- NOTE | 2023-06-23 | DI.CT.S_ITS ---
PROCEDURE: CT LUMBAR SPINE WO CON INDICATIONS: S/P LUMBAR FUSION TECHNIQUE: Noncontrast 3 mm thick sections acquired from the T12 level to the sacrum. Sagittal and coronal reformats were constructed. For radiation dose reduction, the following was used: automated exposure control. COMPARISON: [facility], MR, MR LUMBAR SPINE WO CON, 05/05/2019, 9:27. [facility], CR, XR LUMBAR SPINE 2 OR 3 VIEWS, 07/27/2022, 9:27. FINDINGS: Image quality: Excellent. Bones: No acute vertebral body compression fractures. No suspicious lytic or blastic bony lesions. No pars defects. There is moderate levoconvex thoracolumbar scoliosis seen. Minimal retrolisthesis can be seen at L1-L2. Mild grade 1 anterolisthesis is seen at L4-L5. The L5 level is transitional, with partial sacralization seen on each side. Postoperative changes are seen, with bilateral pedicle screws at the L2 through L5 levels. The screws appear well placed. Vertical fixation rods are seen. Disc spacers are seen at L2-L3, L3-L4, and L4-L5. No findings of hardware failure or hardware loosening can be seen. There has been removal of portions of the posterior elements. Apparent placement of bone grafting material can be seen. T12-L1: Moderate to severe loss of disc height is seen. Endplate irregularity and sclerosis can be seen. Vacuum disc phenomenon is seen at this level. Bridging endplate osteophytes are seen, including on the right-side. Posteriorly projected endplate osteophytes are seen. At least moderate disc bulge is seen, which is eccentric to the right. Mild to moderate facet hypertrophy is seen. There is [id number] left-sided and moderate to severe right-sided neural foraminal narrowing. Moderate central canal narrowing is seen. L1-L2: Moderate to severe loss of disc height is seen. Vacuum disc phenomenon is seen at this level. Endplate irregularity and sclerosis can be seen. Bridging endplate osteophytes are seen, including on the right side, as on series 5, image 26. There is at least moderate right-sided and moderate left-sided facet hypertrophy seen. Moderate to severe bilateral neural foraminal narrowing can be seen. Moderate central canal narrowing is seen. L2-L3: Moderate loss of disc height is seen. Moderate disc bulge is seen. There is a central disc osteophyte protrusion. There is moderate bilateral facet hypertrophy seen, right worse than left. Moderate bilateral neural foraminal narrowing is seen. Mild central canal narrowing is seen. L3-L4: Moderate generalized disc bulge is seen. There is a central/left disc osteophyte protrusion seen. At least moderate facet hypertrophy is seen. There is moderate to severe right-sided and at least moderate left-sided neural foraminal narrowing. Moderate to severe central canal narrowing is seen. L4-L5: Moderate loss of disc height is seen. At least moderate disc bulge is seen, which is eccentric to the left side. Partially bridging endplate osteophytes are seen on the left, as on series 5, image 24. At least moderate facet hypertrophy is seen at this level. There is at least moderate bilateral neural foraminal narrowing, right worse than left. Moderate to severe central canal narrowing is seen. L5-S1: The disc height is relatively well preserved. Moderate disc bulge is seen, which is eccentric to the left. At least moderate facet hypertrophy is seen. There is at least moderate left-sided and mild right-sided neural foraminal narrowing. No central canal narrowing is seen. Moderate degenerative change can be seen involving the sacroiliac joints. Soft tissues: No retroperitoneal masses or hematomas. Visualized aorta is normal in caliber. Cholecystectomy clips are seen. IMPRESSION: Extensive postoperative hardware is seen L2 through L5, without findings of failure or loosening. Levoconvex lumbar scoliosis. Multiple levels of significant lumbar spine degenerative change can be seen. There is transitional lumbar anatomy, with the L5 level partially sacralized on both the left and on the right. Additional findings: Cholecystectomy Dictated by: Garry Hammer M.D. on 06/24/2023 at 14:22 Approved by: Garry Hammer M.D. on 06/24/2023 at 14:30
== END ==
PROVIDERS: Family Provider Physician Assistant Medical; PCP Physician Assistant Medical; Referring Provider Orthopaedic Surgery Orthopaedic Surgery of the Spine; Visit Provider Orthopaedic Surgery Orthopaedic Surgery of the Spine
DX: M47.817 Spondylosis without myelopathy or radiculopathy, lumbosacral region (principal); M47.816 Spondylosis without myelopathy or radiculopathy, lumbar region; M41.9 Scoliosis, unspecified; Z98.1 Arthrodesis status; Z90.49 Acquired absence of other specified parts of digestive tract
CPT/HCPCS: 72131

== ENCOUNTER → 2023-09-07 11:06 | Outpatient (CLI) | payer MEDICARE, OTHER, SELFPAY ==
[2018-12-11 06:29] VITALS: BMI 34.0
--- NOTE | 2023-09-07 | DI.MRI.S_ITS ---
PROCEDURE: MR CERVICAL SPINE WO CON INDICATIONS: Spinal stenosis, cervical region TECHNIQUE: Noncontrast sagittal T1 spin echo and T2 fast spin echo, sagittal STIR, foraminal oblique sagittal T2 fast spin echo, and axial gradient echo or T2 fast spin echo through the cervical spine. COMPARISON: [facility], MR, MR CERVICAL SPINE WO CON, 07/03/2019, 15:57. FINDINGS: Image quality: Excellent. Alignment and Curvature: Trace anterolisthesis of C4 on C5. Interval increase in retrolisthesis C5 on C6, now 4 mm. Trace anterolisthesis of C7 on T1. Bone Marrow: Marrow demonstrates normal overall signal. Spinal Cord: Visualized spinal cord has normal size and signal. No cerebellar tonsillar herniation. Paraspinous Soft Tissues: No paravertebral masses. Prevertebral soft tissues are normal in thickness. C2-C3: Minimal central posterior disc protrusion. No canal stenosis. Bilateral facet hypertrophy. [id number]-[id number] bilateral foraminal narrowing. C3-C4: No canal stenosis. Exuberant left facet hypertrophy. Moderate to severe left foraminal narrowing with left foraminal C4 nerve root impingement. This is similar to previous. C4-C5: Disc bulge abutting the cord. Posterior ligamentous hypertrophy. AP diameter of the central canal is 9.1 mm. This is progressed since the previous study bilateral uncovertebral joint hypertrophy. Bilateral facet hypertrophy. Moderate to severe bilateral foraminal narrowing with a degree of bilateral C5 foraminal nerve root impingement. C5-C6: Interval increase in retrolisthesis of C5 on C6. Posterior disc post osteophyte flattens the ventral cord. AP diameter of the central canal is 7.7 mm. Bilateral uncovertebral joint and facet hypertrophy. Severe bilateral foraminal narrowing with bilateral foraminal C6 nerve root impingement. C6-C7: Disc bulge. No canal stenosis. Bilateral uncovertebral joint hypertrophy and facet hypertrophy. Moderate bilateral foraminal narrowing with flattening deformity on the bilateral C7 nerve roots. C7-T1: Disc bulge. No canal stenosis. Bilateral facet hypertrophy. Moderate to severe bilateral foraminal narrowing with a degree of bilateral foraminal C8 nerve root impingement. IMPRESSION: 1. There is underlying diffuse spondylitic change. There is multilevel facet arthropathy. 2. Progressive findings at C4-C5 and C5-C6. There is ggem-hl-[id number] canal stenosis at C4-C5 and severe canal stenosis at C5-C6. 3. Multilevel significant foraminal narrowing as described above. Findings include moderate to severe left foraminal narrowing at C3-C4, moderate to severe bilateral foraminal narrowing at C4-C5, severe bilateral foraminal narrowing at C5-C6, and moderate to severe bilateral foraminal narrowing at C7-T1. Dictated by: Philippe Danielson M.D. on 09/07/2023 at 13:44 Approved by: Philippe Danielson M.D. on 09/07/2023 at 13:52
== END ==
PROVIDERS: Family Provider Physician Assistant Medical; PCP Physician Assistant Medical; Referring Provider Orthopaedic Surgery Orthopaedic Surgery of the Spine; Visit Provider Orthopaedic Surgery Orthopaedic Surgery of the Spine
DX: M48.02 Spinal stenosis, cervical region (principal); M47.812 Spondylosis without myelopathy or radiculopathy, cervical region
CPT/HCPCS: 72141

== ENCOUNTER → 2023-09-22 09:30 | Outpatient (CLI) | payer MEDICARE, OTHER, SELFPAY ==
[2018-12-11 06:29] VITALS: BMI 34.0
[2023-09-22 10:15] LABS: Add Manual Diff / Slide Review NO; Basophils Absolute Auto 100 /uL (0-100); Basophils Percent Auto 1.1 % (0-2); Eosinophils Absolute Auto 400 /uL (0-450); Eosinophils Percent Auto 5.3 % (2-4); Hematocrit 40.4 % (36-46); Lymphocytes Absolute Auto 2400 /uL (1100-4500); Mean Corpuscular HGB Conc 34.7 % (30-36); Mean Corpuscular Hemoglobin 29.9 PG (26-34); Mean Corpuscular Volume 86.3 fL (80-100); Monocytes Absolute Auto 600 /uL (0-900); Monocytes Percent Auto 7.6 % (3-14); Neutrophils Absolute Auto 4400 /uL (1500-7000); Platelet Count 230 X10^3/uL (150-400); Red Blood Cell Count 4.68 X10^6/uL (4.0-5.2); Red Cell Distribution Width 13.3 % (11.6-14.8)
[2023-09-22 10:32] LABS: Erythrocyte Sedimentation Rate 21 MM/HR (0-20)
[2023-09-22 10:41] LABS: Blood Urea Nitrogen 19 mg/dL (7-17); C-Reactive Protein Quant < 0.5 mg/dL (<1.0); Calcium 9.6 mg/dL (8.4-10.2); Carbon Dioxide 30 mmol/L (22-32); Chloride 96 mmol/L (98-107); Estimated Glomerular Filt Rate > 60 mL/min (>60); Glucose 116 mg/dL (80-110); HEMOLYSIS < 15 (0-50); Potassium 3.8 mmol/L (3.4-5.1); Sodium 135 mmol/L (137-145)
== END ==
PROVIDERS: Family Provider Physician Assistant Medical; PCP Physician Assistant Medical; Referring Provider Orthopaedic Surgery; Visit Provider Orthopaedic Surgery
DX: Z01.812 Encounter for preprocedural laboratory examination (principal); Z01.818 Encounter for other preprocedural examination; Z96.611 Presence of right artificial shoulder joint
CPT/HCPCS: 36415; 80048; 85025; 85651; 86140

== ENCOUNTER → 2023-10-04 11:35 | Outpatient (CLI) | payer MEDICARE, OTHER, SELFPAY ==
[2018-12-11 06:29] VITALS: BMI 34.0
--- NOTE | 2023-10-04 11:38 | DI.RAD.S_ITS ---
PROCEDURE: FL FLUOROSCOPY >1HR COMPARISON: [facility], CR, XR SHOULDER 2+ VIEWS RIGHT, 09/22/2023, 8:30. [facility], CT, CT UE RT WO CON, 10/04/2023, 11:43. INDICATIONS: Presence of right artificial shoulder joint FINDINGS: There is right shoulder arthroplasty. Right shoulder joint is access under fluoroscopy. After local anesthetic injection, a 20 gauge spinal needle was advanced to the shoulder joint. No fluid can be aspirated. Approximately 2 cc normal saline was injected in the right shoulder joint. Joint wash fluid was sent aspirated and sent to the laboratory for analysis. IMPRESSION: Fluoroscopy guided joint aspiration. Dictated by: Adam Bledsoe M.D. on 10/04/2023 at 13:27 Approved by: Adam Bledsoe M.D. on 10/04/2023 at 13:30
--- NOTE | 2023-10-04 11:38 | DI.CT.S_ITS ---
PROCEDURE: CT UE RT WO CON INDICATIONS: Presence of right artificial shoulder joint TECHNIQUE: Noncontrast 1-1.5 mm thick sections acquired from the acromioclavicular joint to the inferior scapula, with coronal and sagittal reformatting. COMPARISON: None. FINDINGS: Image quality: Excellent. Bones: Moderate acromioclavicular joint osteoarthritic changes are seen with joint space narrowing, subchondral sclerosis and downward osteophyte formation depressing the musculotendinous junction of supraspinatus. Patient is status post prior right shoulder arthroplasty with significant beam hardening artifacts from right shoulder prosthesis. No gross hardware loosening or failure. No acute fracture or dislocation. Increased lucency and fragmented appearance involving posterior inferior glenoid is noted concerning for osteolysis. Soft tissues: There is no gross full-thickness rotator cuff tendon rupture. No significant rotator cuff muscle atrophy is seen on sagittal views. Small calcifications are noted deep to the subscapularis muscle and may represent heterotopic calcifications from remote injury. No other abnormal soft tissue calcifications are seen. Small to moderate joint effusion with peripherally calcified fragment seen in inferior aspect of glenohumeral joint space along posterior medial proximal humeral shaft and is concerning for a loose body. IMPRESSION: 1. Prior right shoulder arthroplasty. No evidence of hardware loosening or failure. No periprosthetic fracture. Bone loss involving posterior inferior glenoid adjacent to the glenoid prosthesis concerning for osteolysis. 2. Moderate acromioclavicular joint osteoarthritis. No suspicious bony lesions. 3. Finding is concerning for a peripherally calcified loose body within inferior glenohumeral joint along posterior medial aspect of proximal humeral shaft. 4. Likely heterotopic calcification involving the portion of subscapularis muscle from remote injury. No definite full-thickness rotator cuff tendon rupture. No muscle atrophy. Dictated by: Odilon Davalos M.D. on 10/04/2023 at 17:09 Approved by: Odilon Davalos M.D. on 10/04/2023 at 17:17
== END ==
PROVIDERS: Family Provider Physician Assistant Medical; PCP Physician Assistant Medical; Referring Provider Orthopaedic Surgery; Visit Provider Orthopaedic Surgery
DX: M19.011 Primary osteoarthritis, right shoulder (principal); Z96.611 Presence of right artificial shoulder joint
CPT/HCPCS: 73200; 76000; 87070; 87075; 87205

== ENCOUNTER → 2024-01-23 07:34 | Outpatient (CLI) | payer MEDICARE, OTHER, SELFPAY ==
[2018-12-11 06:29] VITALS: BMI 34.0
[2024-01-23 08:36] LABS: Add Manual Diff / Slide Review NO; Basophils Absolute Auto 100 /uL (0-100); Basophils Percent Auto 0.9 % (0-2); Eosinophils Absolute Auto 300 /uL (0-450); Eosinophils Percent Auto 4.3 % (2-4); Hematocrit 40.5 % (36-46); Hemoglobin 13.4 g/dL (12.0-16.0); Lymphocytes Absolute Auto 2000 /uL (1100-4500); Mean Corpuscular HGB Conc 33.1 % (30-36); Mean Corpuscular Hemoglobin 29.3 PG (26-34); Mean Corpuscular Volume 88.4 fL (80-100); Monocytes Absolute Auto 500 /uL (0-900); Monocytes Percent Auto 8.1 % (3-14); Neutrophils Absolute Auto 3500 /uL (1500-7000); Neutrophils Percent Auto 55.7 % (50-75); Platelet Count 204 X10^3/uL (150-400); Red Blood Cell Count 4.58 X10^6/uL (4.0-5.2); Red Cell Distribution Width 13.3 % (11.6-14.8); White Blood Cell Count 6.4 X10^3/uL (4.5-11.0)
[2024-01-23 08:42] LABS: Hemoglobin A1C% w Est Avg Glu 7.1 % (4.0-6.0)
[2024-01-23 09:00] LABS: BUN Creatinine Ratio 22.5 (6-22); Blood Urea Nitrogen 16 mg/dL (7-17); Calcium 8.9 mg/dL (8.4-10.2); Carbon Dioxide 28 mmol/L (22-32); Chloride 102 mmol/L (98-107); Estimated Glomerular Filt Rate > 60 mL/min (>60); Glucose 159 mg/dL (80-110); HEMOLYSIS < 15 (0-50); Sodium 137 mmol/L (137-145)
== END ==
LOC: LAB 07:36
PROVIDERS: Family Provider Physician Assistant Medical; PCP Physician Assistant Medical; Referring Provider Orthopaedic Surgery Orthopaedic Surgery of the Spine; Visit Provider Orthopaedic Surgery Orthopaedic Surgery of the Spine
DX: Z01.818 Encounter for other preprocedural examination (principal); R73.9 Hyperglycemia, unspecified; Z01.812 Encounter for preprocedural laboratory examination
CPT/HCPCS: 36415; 80048; 83036; 85025; 93005

== ENCOUNTER 2024-02-15 12:30 | Inpatient (IN) | payer MEDICARE, OTHER, SELFPAY ==
[2018-12-11 06:29] VITALS: BMI 34.0
[2024-02-07 13:42] VITALS: BMI 33.3
[2024-02-15] VITALS (12 sets, daily range): BP systolic 110–163; BP diastolic 61–90; PULSE 68–92; RESP 10–17; TEMP 36.4–36.7; O2SAT 93–99; BMI 33.3
--- NOTE | 2024-02-15 | DI.RAD.S_ITS ---
PROCEDURE: XR CERVICAL SPINE 2V OR 3V INDICATIONS: C4-5,C5-6 ACDF TECHNIQUE: 2 intraoperative fluoroscopic images COMPARISON: [facility], CR, XR CERVICAL SPINE 4V OR 5V, 03/05/2021, 9:39. FINDINGS: Two intraoperative fluoroscopic images demonstrate partially visualized anterior cervical fusion hardware with interbody disc spacers involving at least C4-C5 and C5-C6. Partially visualized endotracheal tube. IMPRESSION: Two intraoperative fluoroscopic images demonstrate partially visualized anterior cervical fusion hardware at C4-C5 and C5-C6. Please see operative report for details. Dictated by: Janna Perez M.D. on 02/16/2024 at 8:55 Approved by: Janna Perez M.D. on 02/16/2024 at 8:56
[2024-02-15] MEDS: LACTATED RINGERS 1,000 ML 42 ML IV ×2 (13:31→16:17)
[2024-02-15] MEDS: GABAPENTIN 600 MG TABLET PO (13:33)
[2024-02-15] MEDS: ACETAMINOPHEN 325 MG TABLET 975 MG PO (13:33)
--- NOTE | 2024-02-15 14:27 | PM.PREOP ---
Pre-operative Note Interval Note History & Physical reviewed/Exam performed by Physician: Yes Changes to H&P: No
--- NOTE | 2024-02-15 14:38 | SUR.OPER ---
Supine on padded OR bed, head on pillow, arms padded and tucked at sides, legs uncrossed, safety belt at thigh, tape over blanket over lower legs .
[2024-02-15] MEDS: BUPIVACAINE 0.25% (PF) 10 ML, EPINEPHrine 0.15 MG INJ (15:18)
[2024-02-15] MEDS: CEFAZOLIN 2 GM/100 ML PREMIX 100 ML IV ×2 (15:18→23:43)
--- NOTE | 2024-02-15 16:07 | PC.NURSE ---
Day shift: Not in room 219 at this time.
--- NOTE | 2024-02-15 17:14 | PM.OP.1 ---
Operative Date/Time/Diagnoses Date of procedure: 02/15/24 Time of procedure: 15:00 Pre-op diagnosis: 1. C4-5, C5-6 spinal stenosis 2. C5-6 retrolisthesis 3. Cervical foramen stenosis Post-op diagnosis: same Procedure & Clinicians Procedure: 1. C4-5, C5-6 anterior cervical diskectomy and fusion 2. C4-5, C5-6 anterior interbody cage placement 3. C4-5, C5-6 anterior instrumentation with plate and screw placement in C5-C6 and C7 vertebrae 4. Utilization of microsurgical technique and operating microscope Same procedure as scheduled: Yes Indications: Patient has been having chronic neck pain and worsening cervical radiculopathy. Patient has MRI showing C4-5 C5-6 left worse than right foraminal stenosis with C5-C6 retrolisthesis correlating with patient's symptoms. Patient failed multiple conservative management with worsening pain weakness and numbness in her upper extremity. Patient has been having difficulty performing activity of daily living. After discussing risks benefits of treatment options, patient elected proceed with surgery. Surgeon: Elyssa Navarro [employer] Operator: Kathy Mcgrath Yes if Unassisted: No Anesthesia Type: General Operative Notes Closure Type: primary Prosthetic devices, grafts, tissues, transplants, or devices: Globus Extend Plate, Hedron C cages Estimated Blood Loss (mL): 5 Blood products transfused: none Procedure in detail: Patient was seen in the preoperative area. Risks and benefits of the surgery was discussed with the patient. Operative consent was obtained and placed in the chart. Patient was then taken to the operative room. Prophylactic antibiotic was given less than 0.5 hr prior to skin incision. General anesthesia was administered. Patient was placed into a supine position on her radiolucent table. Bilateral shoulders were taped down to allow proper C-arm imaging. Anterior cervical area was prepped and draped in a sterile fashion. Time-out was performed at this time. Using lateral C-arm imaging, the level between C4 and C6 was identified and marked on patient's neck. A oblique incision from midline towards medial border of sternocleidomastoid muscle was made. The platysma muscle was incised in line with skin incision. Metzenbaum scissor was used to develop the plane between the medial border of sternocleidomastoid d and the strap muscles medially. The carotid sheath and its contents were identified and protected behind the hand-held retractor during the entire case. The plane between the carotid sheath and strap muscles was developed with Metzenbaum scissors. Dissection was made down to the level of the anterior cervical fascia. Longus colli muscle was incised on the anterior aspect of vertebral bodies bilaterally from C4-6. Spinal needle was placed into the C5-6 disc space and confirmed with lateral C-arm imaging. Using microsurgical technique and operative microscope, anterior cervical diskectomy was performed at C4-5 C5-6 level. This was done by removing the disc material, removing the anterior and posterior osteophytes posterior longitudinal ligaments along with performing bilateral foraminotomies at both levels. Patient was found to have severe central and foraminal stenosis at both levels. Patient's stenosis was fully decompressed after decompression was completed. After the diskectomy was completed, 2 anterior interbody cages were obtained. The cages were packed with DBM bone grafting material. One cage each along with the bone grafting material was then packed into the interbody spaces from C4-6 with one cage into each interbody level. After the cages were placed, the anterior cervical plate was stabilized to the C4-6 vertebrae using 2 screws at each each level. Total 6 screws were placed. After confirming placement of the hardware with AP and lateral C-arm imaging, the screws were locked into the plate using the locking mechanism and torque limiting screwdriver. During the screw placement patient was found to have osteopenia was suboptimal bone purchase specially at the C4 level. The 2 initially placed screws were exchanged for 18 mm self-tapping screws with much improved purchase after the replacement. After the hardware was placed and confirmed with AP and lateral C-arm imaging, the wound was irrigated with sterile normal saline. The platysma muscle and the subcutaneous tissue was closed with 2-0 Vicryl. The skin was closed with 4-0 Monocryl and Steri-Strips. Patient tolerated the procedure well. Patient was transferred recovery room in stable condition. There were no complications. Complications: none Post-operative Condition: stable Disposition: PACU Plan for aftercare: Admit to inpatient hospital
[2024-02-15] MEDS: HYDROMORPHONE 1 MG INJ IV ×2 (17:31→17:37)
[2024-02-15] MEDS: OXYCODONE IR 5 MG TABLET PO ×2 (17:40→22:01)
[2024-02-15] MEDS: hydrOXYzine 50 MG/ML INJ 25 MG IM (18:07)
[2024-02-15] MEDS: LACTATED RINGERS 1,000 ML 125 ML IV (18:54)
[2024-02-15] MEDS: SENNOSIDES 8.6 MG TABLET 17.2 MG PO (21:59)
[2024-02-15] MEDS: ATORVASTATIN 20 MG TABLET 10 MG PO (21:59)
[2024-02-15] MEDS: DOCUSATE 100 MG CAPSULE PO (21:59)
[2024-02-15] MEDS: DULOXETINE 30 MG CAPSULE 60 MG PO (22:00)
[2024-02-15] MEDS: OXYBUTYNIN 5 MG ER TAB 10 MG PO (22:00)
--- NOTE | 2024-02-15 22:41 | PC.NURSE ---
Patient states she is ready to get up to [facility] to urinate. Patient only able to get very few drops of urine, amount so small it was unable to be measured. Bladder scan performed, patient was noted to have 139mL at most in bladder. Encouraging fluids and will cont. with plan of care at this time.
[2024-02-16 00:19] VITALS: BP 146/78; PULSE 80; RESP 16; TEMP 36.4; O2SAT 97
[2024-02-16] MEDS: OXYCODONE IR 5 MG TABLET PO ×3 (02:53→12:45)
[2024-02-16 04:24] VITALS: BP 136/84; PULSE 74; RESP 17; TEMP 37; O2SAT 96
[2024-02-16 05:55] LABS: Hematocrit 35.9 % (36-46); Hemoglobin 12.2 g/dL (12.0-16.0)
[2024-02-16] MEDS: LACTATED RINGERS 1,000 ML 125 ML IV (06:02)
[2024-02-16] MEDS: CEFAZOLIN 2 GM/100 ML PREMIX 100 ML IV (06:02)
[2024-02-16] MEDS: GLIMEPIRIDE 2 MG TABLET PO (09:36)
[2024-02-16] MEDS: DOCUSATE 100 MG CAPSULE PO (09:36)
[2024-02-16] MEDS: lisinopriL 10 MG TABLET PO (09:36)
[2024-02-16] MEDS: SITAGLIPTIN 50 MG TABLET 100 MG PO (09:36)
[2024-02-16] MEDS: METOPROLOL IR 50 MG TABLET PO (09:36)
--- NOTE | 2024-02-16 10:37 | P.DS_ITS ---
History of Present Illness History of Present Illness Chief complaint: INPT Narrative: Yanira is a pleasant 73 year old female who is POD#1 s/p C4-5, C5-6 anterior cervical discectomy and fusion with interbody cage placement by Dr. Navarro. Overall reports she is doing well, states she feels better today that she did prior to surgery, she is happy with her surgical outcome so far. Numbness and tingling in her bilateral upper extremities has resolved s/p surgery. Lives at home with who is willing and able to aid in her post-op recovery. States she feels stable enough to discharge to home today. Does not have post-op pain medications at home yet. Denies fever, chills, chest pain, SOB, nausea, vomiting. Endorses slight scratchy throat, likely from intubation, using cough drops with moderate relief. Operative Date/Time/Diagnoses Date of procedure: 02/15/24 Time of procedure: 15:00 Pre-op diagnosis: 1. C4-5, C5-6 spinal stenosis 2. C5-6 retrolisthesis 3. Cervical foramen stenosis Post-op diagnosis: same Procedure & Clinicians Procedure: 1. C4-5, C5-6 anterior cervical diskectomy and fusion 2. C4-5, C5-6 anterior interbody cage placement 3. C4-5, C5-6 anterior instrumentation with plate and screw placement in C5-C6 and C7 vertebrae 4. Utilization of microsurgical technique and operating microscope Same procedure as scheduled: Yes Indications: Patient has been having chronic neck pain and worsening cervical radiculopathy. Patient has MRI showing C4-5 C5-6 left worse than right foraminal stenosis with C5-C6 retrolisthesis correlating with patient's symptoms. Patient failed multiple conservative management with worsening pain weakness and numbness in her upper extremity. Patient has been having difficulty performing activity of daily living. After discussing risks benefits of treatment options, patient elected proceed with surgery. Surgeon: Elyssa Navarro Can Top Setter: Kathy Ken Click Yes if Unassisted: No Anesthesia Type: General Discharge Providers Provider Date of admission: 02/15/24 12:30 Discharge Date: 02/16/24 Primary care physician: Christin Linares PA-C Consults: 02/15/24 18:34 Consult to Occupational Therapy Evaluate & Treat Comment: Physician Instructions: Evaluate and treat Consult to Physical Therapy Evaluate & Treat Comment: Physician Instructions: Evaluate and Treat Discharge provider: Scarlett Hood PA-C Summary Hospital Course Discharge Diagnosis: Stable s/p C4-5, C5-6 anterior cervical discectomy and fusion with interbody cage placement Hospital Course: Uncomplicated hospital course Exam Vital Signs (past 8 hours): - 02/16/24 04:24 Temperature 98.6 F Pulse Rate 74 Respiratory Rate 17 Blood Pressure 136/84 Pulse Oximetry 96 Oxygen Flow Rate 2 Oxygen Delivery Method Nasal Cannula Oxygen Flow Rate 2 Narrative Exam Narrative: Sleeping in bed comfortably, easily arousable. Wearing soft cervical collar. SCDs on and functioning. Resp Effort & Inspection: normal respiratory effort and able to speak in complete sentences Cardio Rate: regular rate Other: Brisk capillary refill. Extremities appear well perfused. Skin Other: Intact, clean and dry dressing on the anterior neck. Neuro Other: Gross sensation intact to bilateral upper extremities. 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 Objective Labs 02/16/24 05:05 Labs: Laboratory Results - last 24 hr 02/16/24 05:05 Hgb 12.2 Hct 35.9 L [facility] Medical History (Updated 05/12/23 @ 12:54 by Benjamin Wild MD) Anesthesia Herniated nucleus pulposus, C5-6 Depression Rheumatoid arthritis Bilateral shoulder pain CARLY (stress urinary incontinence, female) Hepatomegaly Bronchitis Pneumonia Pulmonary nodules Sciatica Diverticulosis Hx of prolonged Q-T interval on ECG Osteoarthritis Diabetes HLD (hyperlipidemia) Surgical History (Updated 02/07/24 @ 13:50 by Mena Wynn, BARTOLO) Hx of colonoscopy (05/12/23) History of total replacement of right shoulder joint (12/11/18) History of lumbar surgery History of arthroplasty of left shoulder (12/16/21) History of arthroplasty of left knee History of arthroplasty of right knee History of lumbar spinal fusion (11/17/17) Hx of tonsillectomy History of hysterectomy History of section Hx of umbilical hernia repair Hx of cholecystectomy Status post cataract extraction of both eyes with insertion of intraocular lens (~2017) Family History (Updated 12/07/21 @ 13:30 by Mena Wynn, RN) Mother Breast cancer Mother Breast cancer Father Diabetes mellitus Other Blood clotting disorder Social History household members: spouse Smoking Status: Never smoker alcohol intake: current Discharge Assessment & Plan Assessment and Plan Assessment: Stable s/p C4-5, C5-6 anterior cervical discectomy and fusion with interbody cage placement Plan of Treatment: 1) Plan to discharge to home today with 2) Continue multimodal pain management. Post-op medications have been sent to patients pharmacy today. 3) Soft cervical collar as needed for comfort. 4) Keep dressing intact, clean, dry until 2 week postop appointment. No soaking the incision site in pools or tubs. No topical ointments or creams to the incision site. 5) Follow up at [facility] orthopedics in 2 weeks for a postop appointment and wound check. All patient's questions were answered, she demonstrates understanding and is in agreement with the plan. Call our office if any questions or concerns arise. Discharge Plan Discharge Plan Patient Disposition: Home Discharge orders & Medications Prescriptions: New oxycodone 5 mg Tablet 5 mg PO Q4-6H PRN (Reason: Pain, Moderate (4-6)) Qty: 30 0RF docusate sodium 100 mg Capsule 100 mg PO BID PRN (Reason: Constipation) Qty: 30 0RF ondansetron 4 mg Tablet,Disintegrating 4 mg sublingual Q8H PRN (Reason: Nausea) Qty: 14 0RF acetaminophen 500 mg capsule 1,000 mg PO Q8HR Qty: 90 0RF Continued metformin 1,000 MG tablet 1,000 mg PO QPM Qty: 0 duloxetine [Cymbalta] 60 MG capsule,delayed release(DR/EC) 60 mg PO HS Qty: 0 simvastatin 40 mg Tablet 20 mg PO BEDTIME Januvia 100 mg Tablet 100 mg PO DAILY tolterodine [Detrol LA] 4 mg Capsule,Extended Release 24hr 4 mg PO BEDTIME losartan 50 mg Tablet 50 mg PO QPM glimepiride 2 mg Tablet 2 mg PO QAM Rx Instructions: administer with breakfast triamterene-hydrochlorothiazid 37.5-25 mg Tablet 1 tab PO DAILY gabapentin [Neurontin] 300 mg capsule 600 mg PO TID PRN (Reason: Nerve pain) metoprolol tartrate 50 mg tablet 50 mg PO DAILY lidocaine 5 % adhesive patch,medicated 1 patch TOP DAILY MDD 12 hours maximum Qty: 30 4RF Rx Instructions: leave on most painful area for 12 hrs Follow up/Referrals: Elyssa Navarro MD [Physician] - 03/02/24 11:30 am (Follow up w/ Rodger Sheikh PA-C, at [facility] office in [place].) Christin Linares PA-C [Primary Care Provider] - None () Diet/Activity/Treatments Diet: Diet as Tolerated Diet comment: Start with soft foods that are easy to swallow. Activity: Soft cervical collar is for comfort only. Most people feel more supported when wearing it while sitting up and standing/walking. Some people feel more supported wearing it while sleeping. No lifting more than 10 pounds. Cold/Heat Therapy: Heating pad to back of neck and between shoulder blades as needed for pain. Skin/Wound/Dressing Care Report to your healthcare provider any signs of infection, such as:: chills, fever, night sweats, unusual drainage and unusual redness Dressing: May shower; keep dressing as dry as possible. If dressing becomes wet inside, remove but keep steri strips in place until follow up in office. Visit Report/Discharge Packet Instructions: How to Prevent Falls, DI for Prescription Opioid Use, DI for Anterior Cervical Discectomy and Fusion Stand Alone Forms: Patient Portal/API, Stroke Signs & Symptoms Discharge Data Primary Care Provider: Christin Linares
--- NOTE | 2024-02-16 11:00 | OT.IP.EVAL ---
Current Diagnoses Spinal stenosis, cervical region (02/15/24) Radiculopathy, cervical region (02/15/24) Surgery Performed Operation Date: 02/15/24 14:15 Actual Procedures p C4-5, C5-6 ACDF with anterior instrumentation - Elyssa Navarro MD Past Medical History (Last Updated 12/07/21 @ 13:12 by Mena Wynn, RN) Anesthesia Bilateral shoulder pain Bronchitis Depression Diabetes Diverticulosis Hepatomegaly Herniated nucleus pulposus, C5-6 HLD (hyperlipidemia) Hx of prolonged Q-T interval on ECG Osteoarthritis Pneumonia Pulmonary nodules Rheumatoid arthritis Sciatica CARLY (stress urinary incontinence, female) Surgical History (Last Updated 02/07/24 @ 13:50 by Mena Wynn, RN) History of arthroplasty of left knee History of arthroplasty of left shoulder (12/16/21) History of arthroplasty of right knee History of section History of hysterectomy History of lumbar spinal fusion (11/17/17) History of lumbar surgery History of total replacement of right shoulder joint (12/11/18) Hx of cholecystectomy Hx of colonoscopy (05/12/23) Hx of tonsillectomy Hx of umbilical hernia repair Status post cataract extraction of both eyes with insertion of intraocular lens (~2017) Occupational Therapy Inpatient Evaluation/Re-Eval M1 PT/OT-IP Prior Functional Status Start: 02/16/24 12:35 Freq: NEEDED Status: Active Protocol: Document 02/16/24 12:35 [facility] (Rec: 02/16/24 12:44 [facility] [id number]) Medical Review Prior Functional Status Medical History Reviewed Yes Diet/Fluid Consistency Regular Communication WNLs Mobility and Gait I Activities of Daily Living and IADL's I Social History Household Members spouse Living Arrangements House Number of Stairs To Enter/Railing? One step to enter or use of ramp. Home Environment High Toilet,Walk in Shower Home Equipment Front Wheel Walker,Tub Transfer Bench,Hand Held Shower,Bed Rails Employment Status Retired M2 OT-IP Current Condition Start: 02/16/24 12:35 Freq: Status: Active Protocol: Document 02/16/24 12:35 [facility] (Rec: 02/16/24 12:44 [facility] [id number]) Occupational Therapy Current Condition Current Condition Evaluation Date 02/16/24 Treatment Diagnosis S/P C4-5, C5-6 ACDF Diagnosis Onset Date 02/15/24 Post Operative Precautions Cervical Spine Precautions Soft Collar for Comfort,No Heavy Lifting,Log Roll M3 OT- IP Subjective and Pain Start: 02/16/24 12:35 Freq: Status: Active Protocol: Document 02/16/24 12:35 [facility] (Rec: 02/16/24 12:44 [facility] [id number]) OT- Subjective Occupational Therapy Visit Type Type Initial Evaluation Visit Start Time 10:45 Visit Stop Time 11:00 Occupational Therapy Visit Comments Patient Comments Pt agreed to get up. Patient/Caregiver Goals To go home. OT Pain Assessment Pain When Pain Assessed At Rest Pain Present Pain Present Pain Reported M4 OT- IP ADL's Start: 02/16/24 12:35 Freq: Status: Active Protocol: Document 02/16/24 12:35 [facility] (Rec: 02/16/24 12:44 [facility] [id number]) OT [id number] Comments OT Self-Feeding Comments Went over information of swallowing after ACDF. OT ADL-Grooming General Evaluation Grooming Ability Independent OT ADL-Oral Care General Eval Oral Care Ability Independent Comments Oral Care Comments Cues to spit into a cup or hinge at her hips to best follow her cervical precautions. OT ADL-Dressing Comments OT Dressing Comments Pt able to kristopher/doff her soft collar. Pt wanting to dress later. Educated to be mindful of her head positioning needs during ADL and mobility. OT ADL-Toileting Comments OT Toileting Comments Pt states did prior. OT ADL-Bathing Comments OT Bathing Comments Spoke of care for the soft collar when showering. M5 OT- IP IADL's Start: 02/16/24 12:35 Freq: Status: Active Protocol: Document 02/16/24 12:35 [facility] (Rec: 02/16/24 12:44 [facility] [id number]) OT-Instrumental Activities of Daily Living Deficits IADL Deficits Identified Deficits Home Safety Awareness Awareness of Need for Assistance at Home Good Awareness Ability to Problem Solve Emergency Able to Problem Solve Situations Meal Preparation Meal Preparation Caregiver Provides Assist Youth Manager Youth Manager Caregiver Provides Assist M6 OT- IP Functional Cognition Start: 02/16/24 12:35 Freq: Status: Active Protocol: Document 02/16/24 12:35 [facility] (Rec: 02/16/24 12:44 [facility] [id number]) Cognitive Factors Limiting Selfcare Function Cognitive Ability Level of Alertness Alert Patient Orientation Name,Age,Birthday,Month,Date, Year,Day of Week,Place, Situation Attention Span Ability Capable of Focused Attention, Capable of Sustained Attention Ability to Follow Commands Able to Follow Multi-Step Commands Cognitive Comments Cognitive Assessment Comments Intact. OT- Vision and Hearing OT- Hearing Assessment OT- Hearing Assessment WFL OT- Vision Assessment Visual Acuity Glasses All The Time M7 OT- IP Mobility and Balance Start: 02/16/24 12:35 Freq: Status: Active Protocol: Document 02/16/24 12:35 [facility] (Rec: 02/16/24 12:44 [facility] [id number]) OT-Transfer Assessment Sit to and From Stand Sit to and from Stand Independent Transfers Transfer Ability Independent Technique Transfer Destination Chair Comments Mobility Comments Pt able to walk in the room on her own with good safety. OT- Balance Assessment Sitting Balance and Reactions Static Sitting Balance Ability Normal Dynamic Sitting Balance Ability Normal Standing Balance and Reactions Static Standing Balance Ability Normal Dynamic Standing Balance Ability Good M8 OT- IP Objective Assessments Start: 02/16/24 12:35 Freq: Status: Active Protocol: Document 02/16/24 12:35 [facility] (Rec: 02/16/24 12:44 [facility] [id number]) OT Gross Range of Motion Upper Extremity Range of Motion Assessment Within Functional Limits M9 OT- IP Assessment and Plan Start: 02/16/24 12:35 Freq: Status: Active Protocol: Document 02/16/24 12:35 [facility] (Rec: 02/16/24 12:44 [facility] [id number]) OT Summary Assessment and Plan Potential Rehabilitation Potential Excellent Analytic Complexity at Evaluation Low Summary OT Impairments Pain,Balance,Bathing Progress Towards Goals Progressing Toward Goals Assessment Summary Pt low complexity and moving well and able to go over cervical precautions for ADL and mobility needs. Pt to go home with assist when medically stable. Goals Dressing Goal Independent Toileting Goal Independent Bathing Goal Independent Days to Meet Goals 1 Frequency of Treatment Frequency Of Treatment Once a Day Treatment Plan OT Treatment Plan ADL Training,Functional Mobility,Patient/Family Education,Discharge Planning Discharge Recommendations OT Discharge Recommendations Home with Assistance Transportation Needs at Discharge Private Vehicle
--- NOTE | 2024-02-16 11:04 | PT.IIE ---
Current Diagnoses Spinal stenosis, cervical region (02/15/24) Radiculopathy, cervical region (02/15/24) Surgery Performed Operation Date: 02/15/24 14:15 Actual Procedures p C4-5, C5-6 ACDF with anterior instrumentation - Elyssa Navarro MD Surgical History (Last Updated 02/07/24 @ 13:50 by Mena Wynn, RN) History of arthroplasty of left knee History of arthroplasty of left shoulder (12/16/21) History of arthroplasty of right knee History of section History of hysterectomy History of lumbar spinal fusion (11/17/17) History of lumbar surgery History of total replacement of right shoulder joint (12/11/18) Hx of cholecystectomy Hx of colonoscopy (05/12/23) Hx of tonsillectomy Hx of umbilical hernia repair Status post cataract extraction of both eyes with insertion of intraocular lens (~2017) Medical History (Last Updated 12/07/21 @ 13:12 by Mena Wynn, RN) Anesthesia Bilateral shoulder pain Bronchitis Depression Diabetes Diverticulosis Hepatomegaly Herniated nucleus pulposus, C5-6 HLD (hyperlipidemia) Hx of prolonged Q-T interval on ECG Osteoarthritis Pneumonia Pulmonary nodules Rheumatoid arthritis Sciatica CARLY (stress urinary incontinence, female) Physical Therapy Inpatient Evaluation/Re-Eval M1 PT/OT-IP Prior Functional Status Start: 02/16/24 08:24 Freq: NEEDED Status: Active Protocol: Document 02/16/24 10:27 MB (Rec: 02/16/24 11:04 MB [id number]) Medical Review Prior Functional Status Medical History Reviewed Yes Diet/Fluid Consistency Regular Communication WNLs Mobility and Gait I Activities of Daily Living and IADL's I Social History Household Members spouse Living Arrangements House Number of Floors (Floors) One Floor Number of Stairs To Enter/Railing? Ramp to enter Home Environment High Toilet,Walk in Shower Home Equipment Front Wheel Walker,Tub Transfer Bench,Hand Held Shower Employment Status Retired M2 PT-IP Current Condition Start: 02/16/24 08:24 Freq: NEEDED Status: Active Protocol: Document 02/16/24 10:27 MB (Rec: 02/16/24 11:04 MB [id number]) Physical Therapy Current Condition Current Condition Evaluation Date 02/16/24 Treatment Diagnosis C5-6 stenosis and s/p cervical fusion M3 PT-IP Subjective Start: 02/16/24 08:24 Freq: NEEDED Status: Active Protocol: Document 02/16/24 10:27 MB (Rec: 02/16/24 11:04 MB [id number]) Subjective Physical Therapy Visit Type Type Initial Evaluation Visit Start Time 10:27 Visit Stop Time 10:47 Number of FUNDRAISING SALE REPRESENTATIVE Visits 0 Physical Therapy Visit Comments Patient Comments Pt states she is doing well. Therapy Pain Assessment Pain When Pain Assessed At Rest Pain Present Pain Present Pain Reported Location back of neck Intensity 1 Scale Used Tiffany (Faces) M4 PT-IP Mobility and Gait Start: 02/16/24 08:24 Freq: NEEDED Status: Active Protocol: Document 02/16/24 10:27 MB (Rec: 02/16/24 11:04 MB [id number]) PT-Bed Mobility Assessment Rolling Type of Rolling Bilateral Level of Assist Independent Supine to Sit Supine to Sit Independent Sit to Supine Sit to Supine Independent Scooting Scooting to Edge of Bed Independent Scooting Up and Down in Bed Independent PT-Transfer Assessment Sit to and From Stand Sit to and from Stand Independent Equipment Transfer Assistive Device Gait Belt Orthotic/Prosthetic Devices or Brace: No Transfers Transfer Destination Bed,Chair,Toilet Transfer Technique Ambulation Transfer Ability Level of Assist Independent Gait Assessment Gait Gait Assistance Required: Independent Distance (Feet) 150 Able to Maintain Weight Bearing Status No During Gait Assistive Devices Assistive Device Gait Belt Orthotic/Prosthetic Devices or Brace: No Gait Deviations General Gait Pattern Antalgic,Wide Based Gait Factors Limiting Gait Function Factors Limiting Gait Function Decreased Activity Tolerance, Limited Range of Motion,Pain Comments Gait Comments 150' slowly and with I and encouraged pt to stop and perform scapular retraction and rotating shoulders (not neck) to improve thoracic mobility and this improves pt' s c/o LBP with gait PT-Balance Assessment Sitting Balance and Reactions Static Sitting Balance Ability Normal Dynamic Sitting Balance Ability Normal Standing Balance and Reactions Static Standing Balance Ability Normal Dynamic Standing Balance Ability Normal Device Used None M5 PT-IP Objective Assessments Start: 02/16/24 08:24 Freq: NEEDED Status: Active Protocol: Document 02/16/24 10:27 MB (Rec: 02/16/24 11:04 MB [id number]) Orientation Orientation/Cognition Level of Alertness Alert Orientation Name,Age,Birthday,Month,Date, Year,Day of Week,Place, Situation Language Function Ability No Deficits Noted Safety Awareness Understands Safety Issues Memory Description No Deficits Noted Gross Range of Motion Upper Extremity ROM Impairments Defer to OT Lower Extremity ROM Assessment Within Functional Limits Strength Lower Extremity Strength Assessment Within Functional Limits M6 PT-IP Treatment Start: 02/16/24 08:24 Freq: NEEDED Status: Active Protocol: Document 02/16/24 10:27 MB (Rec: 02/16/24 11:04 MB [id number]) Physical Therapy Treatment Education Education Provided Precautions,Safety M7 PT-IP Assessment and Plan Start: 02/16/24 08:24 Freq: NEEDED Status: Active Protocol: Document 02/16/24 10:27 MB (Rec: 02/16/24 11:04 MB [id number]) PT Summary Assessment and Plan Potential Rehabilitation Potential Good Status of Condition at Evaluation Evolving Summary Progress Towards Goals Safe For Discharge Assessment Summary Pt transfers, gait trains, and performs log rolling with left rail like she has at home with I. She has no further acute care PT needs. She reports history of FOX with neck pain and may benefit from OPPT consult to address posture and myofascial changes . Frequency of Treatment Frequency Of Treatment Discharge Precautions Cervical Spine Precautions Soft Collar for Comfort,No Heavy Lifting,Log Roll Weight Bearing Status Weight Bearing Status Weight Bear as Tolerated Recommendations To Nursing Amount of Assist Needed Standby Assistance Discharge Recommendations PT Discharge Recommendations Home with Assistance, Outpatient PT Transportation Needs at Discharge Private Vehicle
--- NOTE | 2024-02-16 11:28 | CM.DANOTE ---
Initial DCP Assessment Note Pt is a 73 yo female, resident of [place], now POD#1 from cervical surgery PCP: Chirstin Linares Payer: [facility] for [facility] Reviewed chart, pt discussed in multidisciplinary rounds this morning. Therapy has cleared pt for return home w/family to assist and pt has planned for home, DC order from Ortho has already been initiated this morning. Met w/patient; she is eager to return home w/spouse to assist, denies needs from this CM team. No barriers identified at this time to patient's safe discharge home w/family to assist; close outpatient f/u recommended. CM team will plan to follow closely in case any DC needs or concerns arise. ADRIANNE Saxena Discharge Planning/Care Management CM Discharge Assessment Start: 02/16/24 11:26 Freq: Status: Active Protocol: Document 02/16/24 11:26 BECKI (Rec: 02/16/24 11:27 [id number]) Discharge Planning Assessment Assigned Electroencephalograph Technologist ADRIANNE Bernard DPOA/Assigned Designee Name Juan Toño, spouse Contact Information [phone] Advance Directives? Yes Advance Directives on File Yes History Provided By Patient,Medical Record Prior Living Arrangements House Household Members spouse Type of transporation used prior to Drives own vehicle admit Independent with ADL's Yes Is patient alert and oriented? Yes Patient/Family Preference OP PT Therapy Barriers to Discharge No Discharge Plan Home Transportation Arrangement Spouse to transport home Referrals Initiated None needed
--- NOTE | 2024-02-16 13:47 | PC.NURSE ---
Day shift: Paperwork signed and all questions answered. Pt has all personal belongings. Spouse in room for d/c instructions. Neck dressing remains CDI with CMS intact. Pain well controlled per DEC. scripts sent electronic to Pt's pharmacy. Left unit at approx [phone] via WC. Pt's Spouse is driving her home.
== END 2024-02-16 13:49 | disposition home or self-care (01) | DRG 472 ==
PROVIDERS: Admitting Provider Orthopaedic Surgery Orthopaedic Surgery of the Spine; Family Provider Physician Assistant Medical; PCP Physician Assistant Medical; Referring Provider Orthopaedic Surgery Orthopaedic Surgery of the Spine; Visit Provider Orthopaedic Surgery Orthopaedic Surgery of the Spine
PROC: 0RG20A0 Fusion of 2 or more Cervical Vertebral Joints with Interbody Fusion Device, Anterior Approach, Anterior Column, Open Approach (ICD-10-PCS; principal; 2024-02-15 14:15)
DX: M48.02 Spinal stenosis, cervical region (principal); M47.12 Other spondylosis with myelopathy, cervical region; M43.12 Spondylolisthesis, cervical region; E11.9 Type 2 diabetes mellitus without complications; F32.A Depression, unspecified; E78.5 Hyperlipidemia, unspecified; I10 Essential (primary) hypertension; Z79.84 Long term (current) use of oral hypoglycemic drugs
CPT/HCPCS: 36415; 72040; 76000; 85014; 85018; 97161; 97165; C1713; J0171; J0690; J1100; J1170; J2405; J2704; J3010; J3410

== ENCOUNTER → 2024-04-13 08:57 | Outpatient (CLI) | payer MEDICARE, OTHER, SELFPAY ==
[2024-02-15 18:39] VITALS: BMI 33.3
--- NOTE | 2024-04-13 08:58 | DI.MG.S_ITS ---
BILATERAL DIGITAL SCREENING MAMMOGRAM 3D/2D WITH CAD: 04/13/2024 CLINICAL: Routine screening. Family history of breast cancer. Comparison is made to exams dated: 04/06/2023 mammogram, 04/01/2022 mammogram - [facility], and 02/17/2021 mammogram - [facility]. There are scattered areas of fibroglandular density in both breasts (category b / 25%-50% glandular tissue). Current study was also evaluated with a Computer Aided Detection (CAD) system. There are benign vascular calcifications in the right breast. No significant masses, calcifications, or other findings are seen in either breast. There has been no significant interval change. IMPRESSION: BENIGN There is no mammographic evidence of malignancy. A 1 year screening mammogram is recommended. Based on the Tyrer Cuzick model (a risk assessment model) the patient's lifetime risk is 11.2% and her 10 year risk is 9.2%. According to the ACR, ACS, and NCCN guidelines, an annual breast MRI exam along with mammogram is recommended if the patient's lifetime risk is 20% or greater. This exam was interpreted at Station ID: [id number]. NOTE: For mammograms, a report in lay terms will be sent to the patient. Approximately 15% of breast malignancies will not be visualized mammographically. In the management of a palpable breast mass, a negative mammogram must not discourage biopsy of a clinically suspicious lesion. Electronically Signed By: Min bradley/howie:04/13/2024 16:18:02 letter sent: Normal Exam ACR BI-RADS Category 2: Benign Finding(s) 3342F
== END ==
PROVIDERS: Family Provider Physician Assistant Medical; PCP Physician Assistant Medical; Referring Provider Physician Assistant Medical; Visit Provider Physician Assistant Medical
DX: Z12.31 Encounter for screening mammogram for malignant neoplasm of breast (principal); Z80.3 Family history of malignant neoplasm of breast; R92.323 Mammographic fibroglandular density, bilateral breasts
CPT/HCPCS: 77063; 77067

== ENCOUNTER → 2024-04-24 08:12 | Outpatient (CLI) | payer MEDICARE, OTHER, SELFPAY ==
[2024-02-15 18:39] VITALS: BMI 33.3
--- NOTE | 2024-04-24 08:13 | DI.CT.S_ITS ---
PROCEDURE: CT CERVICAL SPINE WO CON INDICATIONS: SPINAL STENOSIS / EVAL NEURO STRUCTURES AND FUSION TECHNIQUE: Noncontrast 3 mm thick sections acquired from the skull base to the T4 level. Sagittal and coronal reformats were then constructed. For radiation dose reduction, the following was used: automated exposure control, adjustment of mA and/or kV according to patient size. COMPARISON: [facility], CR, XR CERVICAL SPINE 2V OR 3V, 02/15/2024, 16:46. FINDINGS: Image quality: Excellent. Bones: No visualized fracture or dislocation. There is cervical straightening. Anterior fusion with intervertebral spacers is present at C4 through C6. Disc bulge with protrusion at C2-3, mild disc bulge C3-4, C6-7 and C7-T1. Spinal stenosis is markedly improved at C4-5, C5-6 compared to prior exam. Unchanged appearance of moderate to severe left foraminal narrowing C3-4, mild to moderate bilateral C2-3, moderate to severe bilateral C4-5, severe bilateral C5-6, left greater than right, moderate bilateral C6-7. Soft tissues: Prevertebral soft tissues are normal in thickness. No paravertebral hematomas. No apical pneumothoraces. IMPRESSION: Improved appearance of spinal stenosis previously severe at C4-5 and C5-6. Persistent multilevel moderate to severe foraminal narrowing with uncovertebral arthropathy. Dictated by: Brisa Hood M.D. on 04/24/2024 at 13:15 Approved by: Brisa Hood M.D. on 04/24/2024 at 13:25
== END ==
PROVIDERS: Family Provider Physician Assistant Medical; PCP Physician Assistant Medical; Referring Provider Orthopaedic Surgery Orthopaedic Surgery of the Spine; Visit Provider Orthopaedic Surgery Orthopaedic Surgery of the Spine
DX: M48.02 Spinal stenosis, cervical region (principal); M47.812 Spondylosis without myelopathy or radiculopathy, cervical region; Z98.1 Arthrodesis status
CPT/HCPCS: 72125

== ENCOUNTER → 2024-05-16 08:02 | Outpatient (CLI) | payer MEDICARE, OTHER, SELFPAY ==
[2024-02-15 18:39] VITALS: BMI 33.3
--- NOTE | 2024-05-16 08:03 | DI.MRI.S_ITS ---
PROCEDURE: MR CERVICAL SPINE WO CON INDICATIONS: S/P CSPINE FUSION TECHNIQUE: Noncontrast sagittal T1 spin echo and T2 fast spin echo, sagittal STIR, foraminal oblique sagittal T2 fast spin echo, and axial gradient echo or T2 fast spin echo through the cervical spine. COMPARISON: [facility], MR, MR CERVICAL SPINE WO CON, 09/07/2023, 11:45. FINDINGS: Image quality: Adequate to poor. Alignment and Curvature: Interval ACDF of C4-C6. Slight interval increase in minimal anterolisthesis of C6 on C7. Similar minimal anterolisthesis of T1 on T2. minimal Bone Marrow: Similar small oval T1 hypointense focus within the T2 vertebral body which may represent lipid poor hemangioma. Otherwise, the bone marrow is normal in signal. Spinal Cord: Visualized spinal cord has normal size and signal. No cerebellar tonsillar herniation. Paraspinous Soft Tissues: No paravertebral masses. Prevertebral soft tissues are normal in thickness. C2-C3: Similar small central disc protrusion. No spinal canal stenosis. No significant foraminal stenosis. Bilateral facet arthropathy and uncovertebral joint arthropathy. C3-C4: No spinal canal stenosis. Similar moderate to severe left foraminal stenosis with impingement of the left foraminal C4 nerve root. The right neural foramen is patent. Bilateral facet arthropathy and uncovertebral joint arthropathy. C4-C5: Similar disc osteophyte complex that bulges the ventral spinal cord. Similar moderate bilateral foraminal stenosis. There is bilateral facet arthropathy and uncovertebral joint arthropathy. C5-C6: There is a dorsal disc osteophyte complex that flattens the spinal cord, progressed from prior exam. Similar severe bilateral foraminal stenosis. Bilateral facet arthropathy and uncovertebral joint arthropathy. C6-C7: Interval development of a small central disc protrusion that mildly effaces the ventral thecal sac. Similar [id number] foraminal stenosis bilaterally. Bilateral uncovertebral joint arthropathy and facet joint arthropathy. C7-T1: Dorsal disc osteophyte complex mildly flattens the ventral thecal sac. No significant interval change in moderate bilateral foraminal stenosis. There is bilateral facet arthropathy and uncovertebral joint arthropathy. IMPRESSION: 1. When compared to prior MRI of the cervical spine on 09/07/2023, the patient is status post ACDF of C4-C6. 2. Similar to interval progression of multilevel degenerative disc disease throughout the cervical spine. For example, at the C5-C6 level, there is progression of flattening of the ventral spinal cord secondary to a disc osteophyte complex. Dictated by: Kristian Matthews M.D. on 05/16/2024 at 14:27 Approved by: Kristian Matthews M.D. on 05/17/2024 at 16:03
== END ==
PROVIDERS: Family Provider Physician Assistant Medical; PCP Physician Assistant Medical; Referring Provider Orthopaedic Surgery Orthopaedic Surgery of the Spine; Visit Provider Orthopaedic Surgery Orthopaedic Surgery of the Spine
DX: M50.31 Other cervical disc degeneration, high cervical region; M47.812 Spondylosis without myelopathy or radiculopathy, cervical region; M48.02 Spinal stenosis, cervical region; Z98.1 Arthrodesis status
CPT/HCPCS: 72141

== ENCOUNTER → 2024-10-23 11:16 | Outpatient (CLI) | payer MEDICARE, OTHER, SELFPAY ==
[2024-02-15 18:39] VITALS: BMI 33.3
--- NOTE | 2024-10-23 11:22 | DI.CT.S_ITS ---
PROCEDURE: CT UE LT WO CON INDICATIONS: DISPLACED FRACTURE OF PROXIMAL END OF HUMERUS TECHNIQUE: Noncontrast 0.75 mm thick sections acquired from the acromioclavicular joint to the proximal forearm, with coronal and sagittal reformatting. COMPARISON: [facility], CR, XR SHOULDER 2+ VIEWS LEFT, 10/18/2024, 14:34. [facility] [place], CR, XR SHOULDER 2+ VIEWS LEFT, 04/18/2024, 13:50. [facility], CT, CT UE LT WO CON, 10/21/2021, 11:28. FINDINGS: Image quality: Diagnostic. Beam hardening artifacts from prosthesis are seen. Bones: Patient is status post left shoulder arthroplasty. Beam hardening artifacts are noted from prosthesis. There is an acute comminuted spiral fracture involving proximal to mid humeral shaft thickening at posterior lateral cortex of proximal humeral shaft adjacent to the prosthesis series 3, image 16 and series 8, image 34, with up to 1.7 cm lateral displacement at fracture site. Additional posterior laterally displaced fractured fragment is also seen. No distal humeral shaft fracture. No acute fracture is seen included portion of left elbow. No suspicious bony lesions. Soft tissues: Significant soft tissue swelling around proximal to mid humeral shaft fracture site is seen with small amount of adjacent fluid suggestive of soft tissue hematoma. No discrete drainable fluid collection is seen. Significant soft tissue edema and swelling along lateral aspect of left upper arm is seen extending to the elbow level. No abnormal soft tissue calcifications. IMPRESSION: 1. Prior left glenohumeral joint arthroplasty with beam hardening artifacts. New 2. Acute comminuted and displaced spiral fracture involving humeral shaft beginning at the level of the prosthesis extending to mid humeral shaft as described above. No other fracture or dislocation. 3. Significant soft tissue swelling and likely soft tissue hematoma surrounding proximal humeral shaft fracture site. No abnormal soft tissue calcifications. No discrete drainable fluid collection. Soft tissue contusion along posterior lateral aspect of left upper arm extending to elbow level. Dictated by: Odilon Davalos M.D. on 10/24/2024 at 15:00 Approved by: Odilon Davalos M.D. on 10/24/2024 at 15:18
== END ==
PROVIDERS: Family Provider Physician Assistant Medical; PCP Physician Assistant Medical; Referring Provider Physician Assistant Medical; Visit Provider Physician Assistant Medical
DX: S42.292B Other displaced fracture of upper end of left humerus, initial encounter for open fracture (principal); M79.89 Other specified soft tissue disorders; S40.022A Contusion of left upper arm, initial encounter; X58.XXXA Exposure to other specified factors, initial encounter; Z96.612 Presence of left artificial shoulder joint
CPT/HCPCS: 73200

== ENCOUNTER 2024-11-01 13:23 | Inpatient (IN) | payer MEDICARE, OTHER, SELFPAY ==
[2024-02-15 18:39] VITALS: BMI 33.3
[2024-10-24 10:43] VITALS: BMI 33.5
[2024-10-31] VITALS (12 sets, daily range): BP systolic 112–149; BP diastolic 47–91; PULSE 104–124; RESP 14–24; TEMP 35.7–36.7; O2SAT 97–100; BMI 35.0; BMI 35.4
--- NOTE | 2024-10-31 | DI.RAD.S_ITS ---
Jackie ROPEREDURE: XR HUMERUS LT 2V INDICATIONS: ORIF LEFT HUMERUS TECHNIQUE: Intraoperative views of the humerus were acquired. COMPARISON: [facility], CT, CT UE LT WO CON, 10/23/2024, 11:39. FINDINGS: Intraoperative views demonstrate lateral plate and screw fixation of a proximal left humeral diaphyseal fracture with a pre-existing hemiarthroplasty. IMPRESSION: Intraoperative images of proximal left humeral diaphyseal fracture internal fixation. Please see the operative report for further details Dictated by: Enrique Amezcua M.D. on 10/31/2024 at 16:53 Approved by: Enrique Amezcua M.D. on 10/31/2024 at 16:54
[2024-10-31] MEDS: LACTATED RINGERS 1,000 ML 42 ML IV (10:51)
[2024-10-31] MEDS: INSULIN LISPRO 100 UNIT/ML 3ML VIAL SUBCUT ×2 (10:57→21:27)
--- NOTE | 2024-10-31 11:13 | PM.PREOP ---
Pre-operative Note Interval Note History & Physical reviewed/Exam performed by Physician: Yes Changes to H&P: Yes H&P completed within 30 days and has changed as indicated here:: The patient is a 74-year-old female who has a periprosthetic left humerus fracture extending up to her shoulder replacement. She was examined today she is unable to extend her wrist. She has a radial nerve palsy as well as some numbness in the sensory disperse patient for this. She has intact axillary sensation. She has swelling and bruising of her upper extremity and a healed deltopectoral scar from her previous shoulder replacement. She states that she has not been able to extend her wrist since the fall and humerus fracture. She does have a history of a wrist fracture remotely. I discussed with the patient the nature of her proximal humerus fracture need for surgery and that she has a preoperative radial nerve palsy. Discussed these occur with humerus fractures. Most resolve however with surgery we will also look for and make sure the radial nerve is intact and accounted for. Discussed that radial nerve palsy recovery can take months. If she is not showing any improvement 4-6 weeks out from surgery we will consider an EMG nerve conduction study however full recovery can take many months. This was discussed with the patient and her today.
--- NOTE | 2024-10-31 11:19 | P.OP_ITS ---
Operative Date/Time/Diagnoses Date of procedure: 10/31/24 Time of procedure: 11:45 Pre-op diagnosis: Left proximal humerus fracture with shaft extension Periprosthetic shoulder fracture, left Radial nerve palsy left Left humerus shaft fracture Post-op diagnosis: same Procedure & Clinicians Procedure: Open reduction internal fixation left humerus shaft fracture with proximal extension, periprosthetic. CPT code 45042 Exploration radial nerve CPT code 06019, left Procedure performed with a modifier 22 for increased complexity requiring meticulous dissection for nerve injury with comminuted humerus fracture proximally 3-week-old with copious callus requiring meticulous dissection and mobilization of fracture fragments to gain reduction and to explore and confirm nerve integrity. As well as reopen the previously operated proximal aspect of the wound bed from the previous shoulder arthroplasty. Same procedure as scheduled: Yes Indications: The patient is a 74-year-old female that had anatomic shoulder replacement by Dr. Tamayo 4 years ago she fell while she was visiting family in [facility] and sustained a comminuted left humerus fracture that was a shaft fracture with proximal extension up to the level of the shoulder prosthesis. Shoulder prosthesis appears stable. The patient has developed a radial nerve palsy after her fall and can not extend her wrist. She has been indicated for open reduction internal fixation for her comminuted proximal humerus and humeral shaft fracture that is periprosthetic. Discussed additional exploration of radial nerve with palsy. Discussed radial nerves typically a stretch injury with the injuries and usually recovers but can take months. Discussed risks for malunion nonunion infection persistent nerve damage and pain. The risks and benefits of the procedure have been discussed with the patient and given the opportunity to ask questions. The risks of surgery include but are not limited to infection, malunion, nonunion, persistence of pain, damage to nerves and blood vessels, posttraumatic arthritis, DVT, PE, cardiopulmonary complications and . The patient expressed a thorough understanding of the risks and benefits of surgery and has elected to proceed. Consent was signed Surgeon: Spring Pena Production Control Specialist: Rebel Sheikh Anesthesia Type: General Operative Notes Findings: Radial nerve was intact but traverses the humerus directly at the level of the most distal aspect of the fracture right proximal to the most distal which is the 7th screw from the bottom of the plate There was extensive amount of scarring within the wound bed both from the previous shoulder surgery proximally and along the fracture due to being nearly 3-week-old. Required meticulous dissection due to the nature of the fracture and the known nerve injury. Meticulous dissection exploration for the radial nerve as well as for mobilizing the fracture fragments in order to gain reduction. Took approximately twice as long as the standard humeral shaft fracture due to this requirement. Closure Type: primary Specimen(s): none sent Prosthetic devices, grafts, tissues, transplants, or devices: [employer] 15 hole EVOS proximal humerus locking plate with locking and nonlocking screws. EVOS cable Estimated Blood Loss (mL): 100 Blood products transfused: none Tourniquet time (min): 0 Procedure in detail: Patient was seen in the preoperative area the site of surgery marked informed consent confirmed this was the left arm. Patient was brought to the operating room and positioned supine position on a radiolucent table. She was brought to the edge of the table and the hand table was fixed. C-arm was brought in to make sure appropriate intraoperative radiographs could be obtained then the left upper extremity was prepped and draped in standard sterile fashion a formal time-out procedure was performed confirming the patient's side and site of surgery administration of appropriate preoperative antibiotic. All were in agreement. Attention turned to the left upper extremity Previous deltopectoral scar was extended distally in a standard anterior approach to the humerus curving laterally over the biceps toward the anterior lateral elbow. Dissection was taken down through the skin subcutaneous tissues. Cephalic vein was identified and meticulous dissection was taken through the soft tissues the biceps was then retracted medially and the brachialis was split laterally to reach the humeral shaft. Meticulous dissection was required as there was copious soft callus and the fracture fragments were quite stiff. There is also known radial nerve palsy so meticulous dissection taken along the shaft more distally in the area of suspected radial nerve location. Meticulous dissection was taken to find the radial nerve distally and traced it around the spiral groove. This was directly at the level of the most distal part of the fracture. Meticulous dissection of the spiral fracture and then the separate long butterfly fragment which was blocking reduction. Once this was mobilized and dissection was taken proximally enough to reach the tuberosities the fracture was provisionally reduced with clamps and K-wires. Next cable from the EVOS set was placed along the long spiral fractures this was placed in 2 places and crimped and tightened. Then a 15 hole EBUS plate was fit to the bone this needed to be a little bit more distal then would routinely place but this was due to the previous shoulder replacement and trying to obtain bone and fit along the shaft in location to the fractures and cables. The plate was provisionally fixed and then definitively fixed with nonlocking and locking screws. One of the cables was later removed. This was the more distal cable. The least 4 screws distally and proximally were applied to the plate. Final x- rays were obtained demonstrating AP and axillary lateral alignment of the plate and fracture. The arm moved as a unit. Then separate dissection was taken once again distally making sure the radial nerve was able to be traced from distal towards the elbow then back along the spiral groove into the proximal arm. Again this level was marked on the plate to correspond with traversing the humerus right at the level of the most proximal of the distal shaft screws which is the 7th hole from the distal end of the plate. The wound was thoroughly irrigated. Hemostasis was achieved. The wound was closed in layers with 0 Vicryl 2-0 Vicryl 4-0 Monocryl and slim. Local anesthetic was injected for local anesthesia. An Aquacel dressing was placed. The drapes were removed the patient was awoken from anesthesia and taken to recovery room in good condition there were no immediate complications for this procedure. The patient was placed into a sling additionally replaced was ordered for her radial nerve palsy Complications: none Post-operative Condition: stable Disposition: PACU Plan for aftercare: She will stay 1 night in the hospital plan to go home tomorrow. Night will be for pain control and monitoring from major orthopedic surgery. She may come out of the sling for gentle pendulums a couple times a day. No active lifting with the arm greater than 1 lb. May come out of the wrist brace and try to work on wrist range of motion. Discussed radial nerve recovery is variable generally covers but can take 3-9 months. Discussed if not making any progress about 6 weeks postop would consider EMG nerve conduction study. She will follow up in [facility]opedic Clinic in 2 weeks for staple removal.
[2024-10-31] MEDS: CEFAZOLIN 2 GM/100 ML PREMIX 100 ML IV ×2 (12:52→20:49)
[2024-10-31] MEDS: ACETAMINOPHEN 325 MG TABLET 975 MG PO (15:37)
[2024-10-31] MEDS: OXYCODONE IR 5 MG TABLET PO ×2 (15:37→17:49)
[2024-10-31] MEDS: LACTATED RINGERS 1,000 ML 100 ML IV (17:47)
[2024-10-31] MEDS: LOSARTAN 50 MG TABLET PO (17:49)
--- NOTE | 2024-10-31 18:38 | PC.NURSE ---
Patient arrived from PACU at approximately 1600. She c/o pain being severe but dozes back off to sleep. Noted large areas of dark purple bruising to shoulder and L lateral side. L arm in sling. Slight movement of fingers but she states numbness to fingers. She is able to assist in turning side to side for skin check but painful to move. She states her last void was approximately 1030 this a.m. IVF LR at 100 ml/hr. VSS, afebrile on 2 L. She needs reminding to leave nasal canula in her nose, and pulse ox on her finger. Family at bedside this evening will return in the a.m. Bed alarm on, continuous pulse ox, call light in reach, SCD's, POST OP VS, encourage q 2 turning.
[2024-10-31] MEDS: GABAPENTIN 300 MG CAPSULE 600 MG PO (19:31)
[2024-10-31] MEDS: ACETAMINOPHEN 325 MG TABLET 650 MG PO (19:32)
[2024-10-31] MEDS: DULOXETINE 30 MG CAPSULE 60 MG PO (20:50)
[2024-10-31] MEDS: SENNOSIDES 8.6 MG TABLET 17.2 MG PO (20:50)
[2024-10-31] MEDS: DOCUSATE 100 MG CAPSULE PO (20:50)
[2024-10-31] MEDS: ASPIRIN EC 81 MG TABLET PO (20:50)
[2024-10-31] MEDS: ATORVASTATIN 20 MG TABLET 10 MG PO (20:50)
[2024-10-31] MEDS: OXYCODONE IR 10 MG TABLET PO (21:48)
[2024-11-01] MEDS: OXYCODONE IR 10 MG TABLET PO ×5 (02:22→20:27)
[2024-11-01 02:55] VITALS: BP 119/56; PULSE 112; RESP 18; TEMP 36.7; O2SAT 96
[2024-11-01] MEDS: CEFAZOLIN 2 GM/100 ML PREMIX 100 ML IV (04:15)
[2024-11-01 06:15] LABS: Add Manual Diff / Slide Review NO; Basophils Absolute Auto 0 /uL (0-100); Basophils Percent Auto 0.6 % (0-2); Eosinophils Absolute Auto 0 /uL (0-450); Eosinophils Percent Auto 0.6 % (2-4); Hematocrit 28.9 % (36-46); Hemoglobin 9.8 g/dL (12.0-16.0); Lymphocytes Absolute Auto 800 /uL (1100-4500); Lymphocytes Percent Auto 9.8 % (25-40); Mean Corpuscular HGB Conc 33.9 % (30-36); Mean Corpuscular Hemoglobin 29.9 PG (26-34); Mean Corpuscular Volume 88.4 fL (80-100); Monocytes Absolute Auto 700 /uL (0-900); Monocytes Percent Auto 9.6 % (3-14); Neutrophils Absolute Auto 6100 /uL (1500-7000); Neutrophils Percent Auto 79.4 % (50-75); Platelet Count 229 X10^3/uL (150-400); Red Blood Cell Count 3.27 X10^6/uL (4.0-5.2); Red Cell Distribution Width 13.6 % (11.6-14.8); White Blood Cell Count 7.7 X10^3/uL (4.5-11.0)
[2024-11-01 06:30] LABS: BUN Creatinine Ratio 19.7 (6-22); Blood Urea Nitrogen 14 mg/dL (7-17); Calcium 8.1 mg/dL (8.4-10.2); Carbon Dioxide 26 mmol/L (22-32); Chloride 99 mmol/L (98-107); Estimated Glomerular Filt Rate > 60 mL/min (>60); Glucose 261 mg/dL (80-110); HEMOLYSIS < 15 (0-50); Potassium 3.9 mmol/L (3.4-5.1); Sodium 132 mmol/L (137-145)
[2024-11-01 08:00] VITALS: BP 97/57; PULSE 101; RESP 16; TEMP 36.3; O2SAT 94
[2024-11-01] MEDS: GLIMEPIRIDE 2 MG TABLET PO (08:46)
[2024-11-01] MEDS: SITAGLIPTIN 50 MG TABLET 100 MG PO (08:46)
[2024-11-01] MEDS: ASPIRIN EC 81 MG TABLET PO ×2 (08:46→20:27)
[2024-11-01] MEDS: SODIUM CHLORIDE 0.9% FLUSH 10 ML IV ×2 (09:00→20:29)
[2024-11-01] MEDS: INSULIN LISPRO 100 UNIT/ML 3ML VIAL SUBCUT ×3 (09:00→16:54)
--- NOTE | 2024-11-01 09:00 | OT.IP.EVAL ---
Current Diagnoses Periprosthetic fracture around unspecified internal prosthetic joint, initial encounter (10/31/24) Surgery Performed Operation Date: 10/31/24 11:45 Actual Procedures p Open reduction internal fixation left humerus fracture.(Left) - Spring Pena MD Past Medical History (Last Updated 12/07/21 @ 13:12 by Mena Wynn, RN) Anesthesia Bilateral shoulder pain Bronchitis Depression Diabetes Diverticulosis Hepatomegaly Herniated nucleus pulposus, C5-6 HLD (hyperlipidemia) Hx of prolonged Q-T interval on ECG Osteoarthritis Pneumonia Pulmonary nodules Rheumatoid arthritis Sciatica CARLY (stress urinary incontinence, female) Surgical History (Last Updated 10/24/24 @ 10:42 by Michaela Allred, BARTOLO) History of arthroplasty of left knee History of arthroplasty of left shoulder (12/16/21) History of arthroplasty of right knee History of section History of hysterectomy History of lumbar spinal fusion (11/17/17) History of lumbar surgery History of total replacement of right shoulder joint (12/11/18) Hx of cervical spine surgery (02/2024) Hx of cholecystectomy Hx of colonoscopy (05/12/23) Hx of tonsillectomy Hx of umbilical hernia repair Status post cataract extraction of both eyes with insertion of intraocular lens (~2017) Occupational Therapy Inpatient Evaluation/Re-Eval M1 PT/OT-IP Prior Functional Status Start: 11/01/24 10:28 Freq: NEEDED Status: Active Protocol: Document 11/01/24 10:29 [facility] (Rec: 11/01/24 10:50 [facility] [id number]) Medical Review Prior Functional Status Communication I Mobility and Gait Pt states uses a SPC at times. Activities of Daily Living and IADL's Pt prior able to do with all ADL and IADL needs. Social History Household Members spouse Living Arrangements House Number of Floors (Floors) One Floor Number of Stairs To Enter/Railing? One step from outside and has a ramp from the garage. Home Environment Standard Height Toilet,High Toilet Home Equipment Front Wheel Walker,Straight Cane,Raised Toilet Seat w/ Armrests,Hand Held Shower,Grab Bars Near Toilet,Grab Bars In Shower Additional Social History Comment Pt states has been sleeping in her recliner. M2 OT-IP Current Condition Start: 11/01/24 10:28 Freq: Status: Active Protocol: Document 11/01/24 10:29 [facility] (Rec: 11/01/24 10:50 [facility] [id number]) Occupational Therapy Current Condition Current Condition Evaluation Date 11/01/24 Treatment Diagnosis Fall, Left humerus fracture and with radial nerve damage, s/p LUE ORIF Post Operative Precautions Shoulder Precautions Sling,Pendulums Other Precautions No active lifting with the arm greater than 1 lb. Pt may come out of right wrist brace to work on gentle ROM Weight Bearing Status Weight Bearing Status Non-Weight Bearing M3 OT- IP Subjective and Pain Start: 11/01/24 10:28 Freq: Status: Active Protocol: Document 11/01/24 10:29 [facility] (Rec: 11/01/24 10:50 [facility] [id number]) OT- Subjective Occupational Therapy Visit Type Type Initial Evaluation Visit Start Time 09:00 Visit Stop Time 09:38 Occupational Therapy Visit Comments Patient Comments Pt agreed to get up and get back to bed. Patient/Caregiver Goals To go to skilled rehab. OT Pain Assessment Pain When Pain Assessed At Rest Pain Present Pain Present Pain Reported Location Right Shoulder Intensity 10 Scale Used Numeric (0 - 10) M4 OT- IP ADL's Start: 11/01/24 10:28 Freq: Status: Active Protocol: Document 11/01/24 10:29 [facility] (Rec: 11/01/24 10:50 [facility] [id number]) OT [id number] Comments OT Self-Feeding Comments Not at meal time, will need assist for set-up. OT ADL-Grooming Comments OT Grooming Comments Not performed, but will need at least assist for set-up. OT ADL-Oral Care Comments Oral Care Comments NOt performed. OT ADL-Dressing General Eval Upper Body Dressing Ability Total Assistance Lower Body Dressing Ability Maximum Assistance Comments OT Dressing Comments Pt needing assist for gown and sling management needs and for all LB dressing needs. OT ADL-Toileting Comments OT Toileting Comments Did not have to go. OT ADL-Bathing Comments OT Bathing Comments Due to diaz , sponge bath more appropriate at this time. If going home bets to have assist and get a shower chair. M5 OT- IP IADL's Start: 11/01/24 10:28 Freq: Status: Active Protocol: Document 11/01/24 10:29 [facility] (Rec: 11/01/24 10:50 [facility] [id number]) OT-Instrumental Activities of Daily Living Home Safety Awareness Awareness of Need for Assistance at Home Good Awareness Ability to Problem Solve Emergency Able to Problem Solve Situations Medication Management Medication Management Comments Pt able to do prior. Money Management Money Management Comments Pt did prior. Meal Preparation Meal Preparation Comments Pt will need assist. Plastics Fabricator Plastics Fabricator Comments Pt will need assist. M6 OT- IP Functional Cognition Start: 11/01/24 10:28 Freq: Status: Active Protocol: Document 11/01/24 10:29 [facility] (Rec: 11/01/24 10:50 [facility] [id number]) Cognitive Factors Limiting Selfcare Function Cognitive Ability Level of Alertness Alert Patient Orientation Name,Place,Situation Attention Span Ability Capable of Focused Attention, Capable of Sustained Attention Ability to Follow Commands Able to Follow One Step Commands Cognitive Comments Cognitive Assessment Comments Pt able to follow commands for ADL and mobility needs. OT- Vision and Hearing OT- Hearing Assessment OT- Hearing Assessment WFL OT- Vision Assessment Visual Acuity Glasses All The Time Visual Attentiveness WFL Occular Pursuits WFL Vision Assessment Comments Pt's left eye is very bruises but not complaining of any blurred vision at this time. M7 OT- IP Mobility and Balance Start: 11/01/24 10:28 Freq: Status: Active Protocol: Document 11/01/24 10:29 [facility] (Rec: 11/01/24 10:50 [facility] [id number]) OT- Bed Mobility Assessment Sit to Supine Sit to Supine Assist Maximum Assistance,2 Person Assistance OT-Transfer Assessment Sit to and From Stand Sit to and from Stand Minimal Assistance,Moderate Assistance Technique Transfer Destination Bed,Chair Devices Transfer Assistive Devices Gait Belt,Marcus Walker Comments Mobility Comments Pt needing YULIANA to stand from the recliner and will need more assist from lower surfaces. Pt able to use the hemiwalker to take a few steps to the bed but feeling whoozy and symptomatic sitting 124/ 59, standing 94/74 and 115/54, and on the EOB 106/51 OT- Balance Assessment Sitting Balance and Reactions Static Sitting Balance Ability Good Dynamic Sitting Balance Ability Fair Standing Balance and Reactions Static Standing Balance Ability Fair Dynamic Standing Balance Ability Fair M8 OT- IP Objective Assessments Start: 11/01/24 10:28 Freq: Status: Active Protocol: Document 11/01/24 10:29 [facility] (Rec: 11/01/24 10:50 [facility] [id number]) OT Gross Range of Motion Upper Extremity Range of Motion Assessment Left Impaired OT Strength Upper Extremity Strength Assessment Left Impaired M9 OT- IP Assessment and Plan Start: 11/01/24 10:28 Freq: Status: Active Protocol: Document 11/01/24 10:29 [facility] (Rec: 11/01/24 10:50 [facility] [id number]) OT Summary Assessment and Plan Potential Rehabilitation Potential Excellent Analytic Complexity at Evaluation Low Summary OT Impairments Pain,Range of Motion,Strength, Balance,Functional Mobility, Self-Feeding,Grooming,Dressing ,Toileting,Bathing,Toilet Transfers,Shower Transfers Progress Towards Goals Slow Progress due to Pain,Slow Progress due to Medical Issues,Slow Progress due to Activity Tolerance Assessment Summary Pt low complexity and main barriers are pain,low BP and symptomatic, needing extensive assist for dressing, bed mobility needs and one person assist for transfer. Per pt , pt's has issues with his balance and rose marie and will not be able to physically assist.Pt will greatly benefit from skilled rehab prior to going home. Goals Self-Feeding Goal Standby Assistance Grooming Goal Standby Assistance Dressing Goal Minimal Assistance Toileting Goal Standby Assistance Bathing Goal Minimal Assistance Toilet Transfer Goal Independent Shower Transfer Goal Standby Assistance Days to Meet Goals 15 Frequency of Treatment Other frequency 5x/week Treatment Plan OT Treatment Plan ADL Training,Functional Mobility,Patient/Family Education,Discharge Planning Discharge Recommendations OT Discharge Recommendations SNF Rehab Transportation Needs at Discharge Wheelchair/Cabulance
--- NOTE | 2024-11-01 10:50 | PT.IIE ---
Current Diagnoses Periprosthetic fracture around unspecified internal prosthetic joint, initial encounter (10/31/24) Surgery Performed Operation Date: 10/31/24 11:45 Actual Procedures p Open reduction internal fixation left humerus fracture.(Left) - Spring Pena MD Surgical History (Last Updated 10/24/24 @ 10:42 by Michaela Allred, BARTOLO) History of arthroplasty of left knee History of arthroplasty of left shoulder (12/16/21) History of arthroplasty of right knee History of section History of hysterectomy History of lumbar spinal fusion (11/17/17) History of lumbar surgery History of total replacement of right shoulder joint (12/11/18) Hx of cervical spine surgery (02/2024) Hx of cholecystectomy Hx of colonoscopy (05/12/23) Hx of tonsillectomy Hx of umbilical hernia repair Status post cataract extraction of both eyes with insertion of intraocular lens (~2017) Medical History (Last Updated 12/07/21 @ 13:12 by Mena Wynn RN) Anesthesia Bilateral shoulder pain Bronchitis Depression Diabetes Diverticulosis Hepatomegaly Herniated nucleus pulposus, C5-6 HLD (hyperlipidemia) Hx of prolonged Q-T interval on ECG Osteoarthritis Pneumonia Pulmonary nodules Rheumatoid arthritis Sciatica CARLY (stress urinary incontinence, female) Physical Therapy Inpatient Evaluation/Re-Eval M1 PT/OT-IP Prior Functional Status Start: 11/01/24 07:53 Freq: NEEDED Status: Active Protocol: Document 11/01/24 09:01 [facility] (Rec: 11/01/24 10:50 [facility] [id number]) Medical Review Prior Functional Status Medical History Reviewed Yes Diet/Fluid Consistency Regular Communication Pt communicates needs Mobility and Gait Pt reports I to mod I with SPC and she does not report other falls Activities of Daily Living and IADL's Drives, is I Prior Functional Level (Other details) Pt reports that her 's mobility is unstable and that he cannot assist her physically Social History Household Members spouse Living Arrangements House Number of Floors (Floors) One Floor Number of Stairs To Enter/Railing? 1 step up or ramp to enter home Home Environment High Toilet,Walk in Shower, [place]idet Home Equipment Front Wheel Walker,Straight Cane,Hand Held Shower,Grab Bars Near Toilet,Grab Bars In Shower Employment Status Retired M1 PT/OT-IP Prior Functional Status Start: 11/01/24 10:28 Freq: NEEDED Status: Active Protocol: Document 11/01/24 10:29 [facility] (Rec: 11/01/24 10:50 [facility] [id number]) Medical Review Prior Functional Status Communication I Mobility and Gait Pt states uses a SPC at times. Activities of Daily Living and IADL's Pt prior able to do with all ADL and IADL needs. Social History Household Members spouse Living Arrangements House Number of Floors (Floors) One Floor Number of Stairs To Enter/Railing? One step from outside and has a fransisco from the garage. Home Environment Standard Height Toilet,High Toilet Home Equipment Front Wheel Walker,Straight Cane,Raised Toilet Seat w/ Armrests,Hand Held Shower,Grab Bars Near Toilet,Grab Bars In Shower Additional Social History Comment Pt states has been sleeping in her recliner. M2 PT-IP Current Condition Start: 11/01/24 07:53 Freq: NEEDED Status: Active Protocol: Document 11/01/24 09:01 [facility] (Rec: 11/01/24 10:50 [id number]) Physical Therapy Current Condition Current Condition Evaluation Date 11/01/24 Treatment Diagnosis Fall, left humeral fracture with radial nerve damage, hit head, orthostasis M3 PT-IP Subjective Start: 11/01/24 07:53 Freq: NEEDED Status: Active Protocol: Document 11/01/24 09:01 [facility] (Rec: 11/01/24 10:50 [id number]) Subjective Physical Therapy Visit Type Type Initial Evaluation Visit Start Time 09:01 Visit Stop Time 09:37 Number of [employer] Visits 0 Physical Therapy Visit Comments Patient Comments Pt reports high pain 10/10 LUE , states she is not feeling well and also reports concern about needing assistance at d/ c and not being able to assist her well at home and that her son from [place] needs to return home. Therapy Pain Assessment Pain When Pain Assessed At Rest Pain Present Pain Present Pain Reported Location LUE Intensity 10 Scale Used Numeric (0 - 10) M4 PT-IP Mobility and Gait Start: 11/01/24 07:53 Freq: NEEDED Status: Active Protocol: Document 11/01/24 09:01 [facility] (Rec: 11/01/24 10:50 [id number]) PT-Bed Mobility Assessment Rolling Level of Assist Maximal Assistance,2 Person Assistance Sit to Supine Sit to Supine Maximum Assistance,2 Person Assistance PT-Transfer Assessment Sit to and From Stand Sit to and from Stand Minimal Assistance,1 Person Assistance,Use of Upper Extremities Equipment Transfer Assistive Device Gait Belt,Marcus Walker Orthotic/Prosthetic Devices or Brace: Yes Transfers Transfer Destination Bed Transfer Technique Ambulation Transfer Ability Level of Assist Minimal Assistance,1 Person Assistance,Use of Upper Extremities Comments Mobility Comments From higher chair surface, pt can push up from arm of chair and she requires min A for transfer and provided hemiwalker for first gait trial 3'x1 and 20'x1. May progress to cane in future treatments. Left eye appears damaged and there is dried flakes around the eye and ecchymosis. BP and HR RUE: sitting 124/59, 104; standing 94/74, 109; standing 1' 115/54 , 111; once on the EOB 106/51, 113. Pt is symptomatic and coloring of face of jaundiced/ greenish. Gait Assessment Gait Gait Assistance Required: Minimum Assistance Distance (Feet) 20 Able to Maintain Weight Bearing Status Yes During Gait Assistive Devices Assistive Device Gait Belt,Marcus Walker Orthotic/Prosthetic Devices or Brace: Yes Gait Deviations General Gait Pattern Antalgic,Decreased Stride Length,Decreased Feet Clearance,Flexed Trunk,Step-to Gait Factors Limiting Gait Function Factors Limiting Gait Function Decreased Activity Tolerance, Pain Comments Gait Comments Marcus walker at lowest height is too high for pt and so progress to cane or SBQC as appropriate, marcus walke left in room PT-Balance Assessment Sitting Balance and Reactions Static Sitting Balance Ability Good Dynamic Sitting Balance Ability Good Standing Balance and Reactions Static Standing Balance Ability Good Dynamic Standing Balance Ability Good Device Used Hemiwalker M5 PT-IP Objective Assessments Start: 11/01/24 07:53 Freq: NEEDED Status: Active Protocol: Document 11/01/24 09:01 [facility] (Rec: 11/01/24 10:50 [facility] [id number]) Orientation Orientation/Cognition Level of Alertness Alert Language Function Ability No Deficits Noted Safety Awareness Understands Safety Issues Memory Description No Deficits Noted Gross Range of Motion Upper Extremity ROM Assessment Left Impaired Impairments See OT note, ecchymosis and edema LUE, arm in sling, post- op, wrist brace in room and pt does not wish to wear Lower Extremity ROM Assessment Within Functional Limits Strength Lower Extremity Strength Assessment Within Functional Limits Coordination Assessment Gross Coordination Gross Coordination Impaired Assessment Coordination Comments No LUE functional use today Sensation Assessment Comments Sensation Comments Changes LUE M6 PT-IP Treatment Start: 11/01/24 07:53 Freq: NEEDED Status: Active Protocol: Document 11/01/24 09:01 [facility] (Rec: 11/01/24 10:50 [facility] [id number]) Physical Therapy Treatment Education Education Provided Precautions Other Treatments Other Treatment Performed Use of incentive spirometer that is in room, PT demos pendulums and ed pt that that therapy will not try while her BP is dropping and her pain is so high M7 PT-IP Assessment and Plan Start: 11/01/24 07:53 Freq: NEEDED Status: Active Protocol: Document 11/01/24 09:01 [facility] (Rec: 11/01/24 10:50 [facility] [id number]) PT Summary Assessment and Plan Potential Rehabilitation Potential Good Status of Condition at Evaluation Evolving Summary Impairments Pain,ROM,Strength,Balance, Coordination,Sensation,Bed Mobility,Transfers,Gait, Activity Tolerance Progress Towards Goals Slow Progress due to Medical Issues,Slow Progress due to Activity Tolerance Assessment Summary Pt is a pleasant 74 y/o presenting with high pain after fracturing left humerus and sustaining radial nerve injury as well. She is POD1 and has sling donned and does not wish to wear wrist brace today d/t hand numbness with it donned last night. Pt has left eye changes after hitting her head during fall and she has ecchymosis around left eye as well. Her BP is labile. Pt reports concern that her cannot assist her at home d/t his own balance challenges. PT recommends SNF at d/c to improve functional transfers, gait, mobility and I. Goals Bed Mobility Goal Independent Transfer Goal Independent,Cane Gait Goal Independent,Cane Gait Distance 5 Frequency of Treatment Frequency Of Treatment Once a Day Treatment Plan Physical Therapy Treatment Plan Bed Mobility Training,Transfer Training,Gait Training, Therapeutic Exercise,Balance Retraining,Post Op Education, Discharge Planning,Hot or Cold Pack,Neuromuscular Re-ed, Coordination Retraining,Manual Therapy Precautions Shoulder Precautions Sling,Pendulums Other Precautions 1 pound weight limit LUE written in op report Weight Bearing Status Weight Bearing Status Non-Weight Bearing Allowed Weight Bearing Amount (enter % LUE or #) (%) Recommendations To Nursing Amount of Assist Needed 2 Person Assist Discharge Recommendations PT Discharge Recommendations SNF Rehab Transportation Needs at Discharge Wheelchair/Cabulance
--- NOTE | 2024-11-01 11:20 | P.PN_ITS ---
Subjective Subjective Interval history: Yanira is a 74 year old female who is POD#1 s/p open reduction internal fixation periprosthetic left humerus shaft fracture with proximal extension by Dr. Pena. This morning she reports she is in a significant amount of pain, she reports difficulty w/ sleeping last night d/t the pain. She has 5mg Oxycodone, 10mg Oxycodone and Dilaudid ordered. She expresses her concerns w/ d/c to home d/t her poor pain control. She also reports that she has minimal physical support at home as her is still recovering from his total knee replacement. She worked w/ PT once already but states she felt dizzy when getting up. She also has a radial nerve palsy from the fracture, she was given a wrist brace but states she feels better out of it. Denies fever, chills, chest pain, SOB, nausea, vomiting. Exam Vital Signs (past 8 hours): - 11/01/24 08:00 Temperature 97.3 F L Pulse Rate 101 H Respiratory Rate 16 Blood Pressure 97/57 L Pulse Oximetry 94 Oxygen Flow Rate 0 Fraction of Inspired Oxygen 28 SaO2/FiO2 Ratio 350 Oxygen Delivery Method Nasal Cannula Oxygen Flow Rate 0 Narrative Exam Narrative: Patient sitting comfortably in bed during our interview today. No acute distress. AOx3. Significant ecchymosis of the entire LUE and upper back/neck. Sensation intact in the LUE w/ the exception of decreased sensation in the radial nerve distribution. Unable to give thumbs up, unable to extend wrist. Brisk capillary refill. Post-surgical Aquacel dressing intact over the left shoulder/upper arm, there is mild drainage throughout. Objective Labs 11/01/24 05:42 11/01/24 05:42 Labs: Laboratory Results - last 24 hr 11/01/24 05:42 WBC 7.7 RBC 3.27 L Hgb 9.8 L Hct 28.9 L MCV 88.4 MCH 29.9 MCHC 33.9 RDW 13.6 Plt Count 229 Neut % (Auto) 79.4 H Lymph % (Auto) 9.8 L Lander % (Auto) 9.6 Eos % (Auto) 0.6 L Baso % (Auto) 0.6 Neut # (Auto) 6100 Lymph # (Auto) 800 L Lander # (Auto) 700 Eos # (Auto) 0 Baso # (Auto) 0 Sodium 132 L Potassium 3.9 Chloride 99 Carbon Dioxide 26 BUN 14 Creatinine 0.71 Estimated GFR > 60 BUN/Creatinine Ratio 19.7 Glucose 261 H Calcium 8.1 L PFSH Medical History (Updated 05/12/23 @ 12:54 by Benjamin Wild MD) Anesthesia Herniated nucleus pulposus, C5-6 Depression Rheumatoid arthritis Bilateral shoulder pain CARLY (stress urinary incontinence, female) Hepatomegaly Bronchitis Pneumonia Pulmonary nodules Sciatica Diverticulosis Hx of prolonged Q-T interval on ECG Osteoarthritis Diabetes HLD (hyperlipidemia) Surgical History (Updated 10/24/24 @ 10:42 by Michaela Allred, BARTOLO) Hx of cervical spine surgery (02/2024) Hx of colonoscopy (05/12/23) History of total replacement of right shoulder joint (12/11/18) History of lumbar surgery History of arthroplasty of left shoulder (12/16/21) History of arthroplasty of left knee History of arthroplasty of right knee History of lumbar spinal fusion (11/17/17) Hx of tonsillectomy History of hysterectomy History of section Hx of umbilical hernia repair Hx of cholecystectomy Status post cataract extraction of both eyes with insertion of intraocular lens (~2017) Family History (Updated 12/07/21 @ 13:30 by Mena Wynn RN) Mother Breast cancer Mother Breast cancer Father Diabetes mellitus Other Blood clotting disorder Social History household members: spouse Smoking Status: Never smoker alcohol intake: current Assessment & Plan Post-op Postoperative Procedures: Procedures Operation Date: 10/31/24 11:45 Actual Procedure Side Surgeon p Open reduction internal fixation left humerus fracture. Left Spring Pena MD Postoperative plan narrative: 1) Will continue to monitor progress with pain control and post-op anemia. May d/c to home vs SNF pending progress. 2) Continue multimodal pain management with ice to the shoulder for additional pain control. 3) ASA b.i.d. for DVT prophylaxis. 4) Work w/ physical therapy to improve mobility. 1lb weight limit in the LUE. Encourage pendulums when/as tolerated. 5) Keep dressing intact, clean, dry until 2 week postop appointment. No soaking the incision site in pools or tubs. No topical ointments or creams to the incision site. 6) Follow up at [facility] in 2 weeks for a postop appointment and wound check. 7) We will continue to monitor her radial nerve palsy, she does not need to wear the brace if it's uncomfortable d/t post-op swelling, she can wear it in the future as needed. All patient's questions were answered, she demonstrates understanding and is in agreement with the plan. Call our office if any questions or concerns arise.
--- NOTE | 2024-11-01 12:03 | PC.NURSE ---
Pt A&O conversant. UP to chair with 1 person assist. A bit groggy from pain meds earlier. further pain meds held for VS's medicated resently to good effect. Continues up in chair. Pt restful. Surgical site intact. Spoke with Baljit and informed son of plan.
--- NOTE | 2024-11-01 12:36 | CM.DANOTE ---
Initial DCP Assessment Note Pt is a 74 yo female, resident of [place], had a fall while visiting family in [place] and fractured her shoulder. Patient is s/p left shoulder open reduction, internal fixation. PCP: Christin Linares Payer: [facility]/ [facility] Reviewed chart, pt discussed in multidisciplinary rounds this morning. Therapies recommending SNF at discharge. Met w/patient who reports she lives independently with spouse who struggles with his own physical limitation. Patient would like to discharge to [facility]; further states she discussed her plan pre-operatively with a nurse who told her she would not meet criteria for this. Confirmed that at this time, patient is categorized as SDC status, and that [facility] requires three INPT nights to qualify for SNF stay. Patient states understanding. Discussed the following scenarios: -Paying privately for SNF -Paying privately for in-home care -Getting changed to INPT from SDC; [facility] SNF benefit after 3 INPT nights -Extended SDC stay with a potential increase in out of pocket cost Patient says she may be okay at home if her pain is better managed. Patient requests referral to [facility] and will consider her options. This RING ROLLING MACHINE OPERATOR reviewed summary of above with PT/OT. Referral emailed to Jennifer at [facility]. Hospital exempt PASRR completed, needs provider signature (sonal Kirk). CM team will plan to follow clinical course closely. ADRIANNE Saxena Discharge Planning/Care Management CM Discharge Assessment Start: 11/01/24 12:09 Freq: Status: Active Protocol: Document 11/01/24 12:09 BECKI (Rec: 11/01/24 12:35 BECKI [id number]) Discharge Planning Assessment Assigned Mass Communications Instructor ADRIANNE Bernard DPOA/Assigned Designee Name Juan Lundberg, spouse Contact Information [phone], cell Advance Directives? Yes Advance Directives on File Yes History Provided By Patient,Medical Record Prior Living Arrangements House Household Members spouse Type of transporation used prior to Drives own vehicle admit Independent with ADL's Yes Is patient alert and oriented? Yes Needs Assistance With Home Chores / Shopping DME Already Rented / Owned Cane Patient/Family Preference [facility] Facility,Home with Home Health Barriers to Discharge Yes Comment Patient complains of pain, has labile BP, and states concern about her 's ability to care for her once home. Discharge Plan Home with Home Health Transportation Arrangement Spouse to transport if discharged home Referrals Initiated [facility] Additional Comment 1. [facility] If patient plan is SNF: Has PASSR been No completed?
--- NOTE | 2024-11-01 13:37 | CM.DPNOTE ---
Addendum entered by ADRIANNE Delgadillo 11/01/24 13:57: ADD: Patient has been switched from SDC to INPT as of 11.01.24; MCR ready for admission to [facility] 11.04.24. Updated Jennifer at [facility]. Hospital exempt PASRR needs provider signature. CM team following closely for coordination efforts. Original Note: DCP Cont [facility]+R accepts for admission Tuesday or Tuesday. CM team following closely for any changes to status, patient's progress with therapies, patient's ability to pay privately at SNF. BECKI
--- NOTE | 2024-11-01 14:49 | P.PN_ITS ---
Subjective Subjective Interval history: patient is right-hand dominant female postop day 1 status post open reduction internal fixation. Prosthetic humeral shaft fracture left. Doing okay this this afternoon. States she had a rough night with pain control. Did better after given 10 mg of oxycodone. She had a proximally 3-week-old periprosthetic humerus fracture around her shoulder replacement extending down into the diaphysis and a radial nerve palsy. She has expected swelling and bruising after surgery. Her Aquacel dressing is intact with a little bit of drainage. Forearm is soft. Persistent radial nerve palsy unchanged as expected. Brisk capillary refill to the fingers. Is having more pain wearing the wrist brace. Feels better out of it. Plan. Postop day 1 left humerus ORIF with long plate. She has a radial nerve palsy this occurred with her humerus shaft fracture which is not uncommon. Discussed radial nerve was explored during surgery. Was intact. We will follow clinically the typically takes 3-9 months to recover. Continue to work on pain control. Discussed can take 5, 10 or 15 mg of oxycodone every 3 hours. If that does not provide sufficient pain relief then can switch to hydromorphone. Aspirin for DVT prophylaxis she has minimal assistance at home may require jail discharge. She was acute blood loss anemia post surgery. And difficulty with pain control major orthopedic surgery with ORIF of humerus periprosthetic fracture. And may require jail placement. Indicated for ongoing inpatient hospitalization. Exam Vital Signs (past 8 hours): - 11/01/24 08:00 Temperature 97.3 F L Pulse Rate 101 H Respiratory Rate 16 Blood Pressure 97/57 L Pulse Oximetry 94 Oxygen Flow Rate 0 Fraction of Inspired Oxygen 28 SaO2/FiO2 Ratio 350 Oxygen Delivery Method Nasal Cannula Oxygen Flow Rate 0 Objective Labs 11/01/24 05:42 11/01/24 05:42 Labs: Laboratory Results - last 24 hr 11/01/24 05:42 WBC 7.7 RBC 3.27 L Hgb 9.8 L Hct 28.9 L MCV 88.4 MCH 29.9 MCHC 33.9 RDW 13.6 Plt Count 229 Neut % (Auto) 79.4 H Lymph % (Auto) 9.8 L [place] % (Auto) 9.6 Eos % (Auto) 0.6 L Baso % (Auto) 0.6 Neut # (Auto) 6100 Lymph # (Auto) 800 L [place] # (Auto) 700 Eos # (Auto) 0 Baso # (Auto) 0 Sodium 132 L Potassium 3.9 Chloride 99 Carbon Dioxide 26 BUN 14 Creatinine 0.71 Estimated GFR > 60 BUN/Creatinine Ratio 19.7 Glucose 261 H Calcium 8.1 L PFSH Medical History (Updated 05/12/23 @ 12:54 by Benjamin Wild MD) Anesthesia Herniated nucleus pulposus, C5-6 Depression Rheumatoid arthritis Bilateral shoulder pain CARLY (stress urinary incontinence, female) Hepatomegaly Bronchitis Pneumonia Pulmonary nodules Sciatica Diverticulosis Hx of prolonged Q-T interval on ECG Osteoarthritis Diabetes HLD (hyperlipidemia) Surgical History (Updated 10/24/24 @ 10:42 by Michaela Allred, BARTOLO) Hx of cervical spine surgery (02/2024) Hx of colonoscopy (05/12/23) History of total replacement of right shoulder joint (12/11/18) History of lumbar surgery History of arthroplasty of left shoulder (12/16/21) History of arthroplasty of left knee History of arthroplasty of right knee History of lumbar spinal fusion (11/17/17) Hx of tonsillectomy History of hysterectomy History of section Hx of umbilical hernia repair Hx of cholecystectomy Status post cataract extraction of both eyes with insertion of intraocular lens (~2017) Family History (Updated 12/07/21 @ 13:30 by Mena Wynn RN) Mother Breast cancer Mother Breast cancer Father Diabetes mellitus Other Blood clotting disorder Social History household members: spouse Smoking Status: Never smoker alcohol intake: current Assessment & Plan Time-Based Coding :: [TOTAL MINUTES] spent with patient and on the chart (including review of chart, obtaining history, exam, reviewing outside data, placing orders, documenting exam and treatment plan, and counseling patient) on [DATE].
--- NOTE | 2024-11-01 16:30 | PM.CN ---
History of Present Illness Consult details Date Patient Seen: 11/01/24 Chief complaint: SDC Reason for consult: Diabetes CoManagement Requesting provider: Spring Pena Narrative: This is a 74-year-old female with a history of diabetes mellitus, hypertension,, rheumatoid arthritis, depression, hyperlipidemia, peripheral neuropathy and a recent left humeral fracture while visiting [place] out of state. Her fracture occurred 3 weeks ago in [place] while she was visiting her son. This was periprosthetic due to a prior shoulder replacement. She also experienced radial nerve palsy which is expected to take 3-9 months to recover. No permanent injury to the radial nerve was seen during surgery. Since surgery she has been on a low-dose additional insulin scale in addition to her glimepiride and Jardiance. Her blood sugars have been up into the 200s so the hospitalist service was consulted to assist in management of her diabetes. She says she has never been on insulin. Meds Home Medications and Allergies Home Medications Medication Instructions Recorded Confirmed Type duloxetine 60 mg capsule,delayed 60 mg PO HS ##0 11/09/17 10/31/24 History release (Cymbalta) simvastatin 40 mg tablet 20 mg PO BEDTIME 11/27/18 10/31/24 History sitagliptin phosphate 100 mg 100 mg PO DAILY 11/27/18 10/31/24 History tablet (Januvia) lidocaine 5 % topical patch 1 patch topical DAILY axial back 06/12/19 10/31/24 Rx pain #30 ea gabapentin 300 mg capsule 600 mg PO TID PRN Nerve pain 12/07/21 10/31/24 History (Neurontin) glimepiride 2 mg tablet 2 mg PO QAM 12/07/21 10/31/24 History losartan 50 mg tablet 50 mg PO QPM 12/07/21 10/31/24 History metoprolol tartrate 50 mg tablet 50 mg PO DAILY 12/16/21 10/31/24 History acetaminophen 500 mg capsule 1,000 mg (2 x 500 mg) PO Q8HR #90 02/16/24 10/31/24 Rx caps oxycodone 5 mg tablet 5 mg PO Q4-6H PRN Pain, Moderate 02/16/24 10/31/24 Rx (4-6) #30 tabs Allergies Allergy/AdvReac Type Severity Reaction Status Date / Time erythromycin base Allergy Intermediate HIVES, Verified 10/31/24 10:08 [ERYTHROMYCIN BASE] HYPERVENTILATING morphine [MORPHINE] Allergy Intermediate LUMBAR Verified 10/31/24 10:08 ITCHING, RASH Review of Systems Review of Systems Narrative: Positive for shoulder pain, bruising and unstable blood sugars Negative for fevers, chills, sweats, nausea, vomiting, diarrhea, bleeding, rashes, dysuria, sore throat, headache, new allergies. Exam Vital Signs (past 8 hours): Fraction of Inspired Oxygen 28 SaO2/FiO2 Ratio 350 Oxygen Delivery Method Nasal Cannula Oxygen Flow Rate 0 Narrative Exam Narrative: She is alert and oriented x3. Her memory is affected by recent opioid dosing. No apparent distress. Pupils are equally round and reactive to light and accommodation. Extraocular muscles are intact Sclerae are pink and nonicteric No lymph nodes are felt head, neck, supraclavicular area There is no thyromegaly No carotid bruits are heard JVD is less than 6 cm Heart is regular rate and rhythm without murmur Lungs are clear to auscultation bilaterally Abdomen is obese, non tender, bowel sounds positive Extremities have no ankle edema She has a honeycomb dressing over the left anterior shoulder with extensive bruising on the upper shoulder/back. She has a shoulder immobilizer and is guarding with pain. Objective Labs 11/01/24 05:42 11/01/24 05:42 Labs: Laboratory Results - last 24 hr 11/01/24 05:42 WBC 7.7 RBC 3.27 L Hgb 9.8 L Hct 28.9 L MCV 88.4 MCH 29.9 MCHC 33.9 RDW 13.6 Plt Count 229 Neut % (Auto) 79.4 H Lymph % (Auto) 9.8 L [place] % (Auto) 9.6 Eos % (Auto) 0.6 L Baso % (Auto) 0.6 Neut # (Auto) 6100 Lymph # (Auto) 800 L [place] # (Auto) 700 Eos # (Auto) 0 Baso # (Auto) 0 Sodium 132 L Potassium 3.9 Chloride 99 Carbon Dioxide 26 BUN 14 Creatinine 0.71 Estimated GFR > 60 BUN/Creatinine Ratio 19.7 Glucose 261 H Calcium 8.1 L [facility] Medical History (Updated 05/12/23 @ 12:54 by Benjamin Wild MD) Anesthesia Herniated nucleus pulposus, C5-6 Depression Rheumatoid arthritis Bilateral shoulder pain CARLY (stress urinary incontinence, female) Hepatomegaly Bronchitis Pneumonia Pulmonary nodules Sciatica Diverticulosis Hx of prolonged Q-T interval on ECG Osteoarthritis Diabetes HLD (hyperlipidemia) Surgical History (Updated 10/24/24 @ 10:42 by Michaela Allred, RN) Hx of cervical spine surgery (02/2024) Hx of colonoscopy (05/12/23) History of total replacement of right shoulder joint (12/11/18) History of lumbar surgery History of arthroplasty of left shoulder (12/16/21) History of arthroplasty of left knee History of arthroplasty of right knee History of lumbar spinal fusion (11/17/17) Hx of tonsillectomy History of hysterectomy History of section Hx of umbilical hernia repair Hx of cholecystectomy Status post cataract extraction of both eyes with insertion of intraocular lens (~2017) Family History (Updated 12/07/21 @ 13:30 by Mena Wynn RN) Mother Breast cancer Mother Breast cancer Father Diabetes mellitus Other Blood clotting disorder Social History household members: spouse Tobacco & Substance Use Smoking Status: Never smoker alcohol intake: current Assessment & Plan Assessment & Plan narrative: Diabetes mellitus type 2 -continue glimepiride, Jardiance and adjust the lispro correctional scale. -add long-acting Lantus insulin if sugars continue to be well above the mid 100 range. Post orthopedic surgery acute blood loss anemia -hemoglobin 9.8, addressed per Orthopedics Hypertension -continue metoprolol tartrate and losartan -blood pressures have been controlled. DVT prevention -aspirin 81 mg b.i.d. and SCD. - Time-Based Coding :: [TOTAL MINUTES] spent with patient and on the chart (including review of chart, obtaining history, exam, reviewing outside data, placing orders, documenting exam and treatment plan, and counseling patient) on [DATE].
[2024-11-01 16:42] VITALS: BP 106/65; PULSE 101; RESP 15; TEMP 36.6; O2SAT 95
[2024-11-01 16:52] VITALS: BP 106/65; PULSE 101
[2024-11-01] MEDS: LOSARTAN 50 MG TABLET PO (16:52)
[2024-11-01 20:00] VITALS: BP 114/58; PULSE 114; RESP 22; TEMP 36.2; O2SAT 94
[2024-11-01] MEDS: ATORVASTATIN 20 MG TABLET 10 MG PO (20:26)
[2024-11-01] MEDS: ACETAMINOPHEN 325 MG TABLET 650 MG PO (20:27)
[2024-11-01] MEDS: DULOXETINE 30 MG CAPSULE 60 MG PO (20:27)
[2024-11-01] MEDS: GABAPENTIN 300 MG CAPSULE 600 MG PO (20:28)
[2024-11-01] MEDS: HYDROMORPHONE 0.5 MG INJ IV (22:40)
[2024-11-02] MEDS: OXYCODONE IR 10 MG TABLET PO ×6 (01:50→22:36)
[2024-11-02] MEDS: ACETAMINOPHEN 325 MG TABLET 650 MG PO ×2 (06:45→19:28)
--- NOTE | 2024-11-02 07:24 | PM.PN.1 ---
Subjective Subjective Date Patient Seen: 11/02/24 Interval history: She is seen in her room today to follow-up her diabetes mellitus and hypertension. Her blood sugars range from 156 up to 179. She is scheduled to go to [facility] in 3 more days. Her hemoglobin was 9.8 on 11/01. This morning her blood pressure is 114/58 with a heart rate of 114. Exam Vital Signs (past 8 hours): Fraction of Inspired Oxygen 28 SaO2/FiO2 Ratio 350 Oxygen Delivery Method Nasal Cannula Oxygen Flow Rate 0 Narrative Exam Narrative: She says she feels much better and slept well last night. She continues to have pain with movement of the left arm. There is bruising under the left lower eyelid and a healing laceration over the left upper eyebrow. The bruising on the left shoulder appears to be fading. The dressing is intact on the anterior left shoulder. Heart is regular rate and rhythm without murmur Lungs are clear to auscultation bilaterally Extremities have no ankle edema Objective Labs 11/01/24 05:42 11/01/24 05:42 [facility] Medical History (Updated 11/02/24 @ 08:57 by Kathy Ken PA-C) Anesthesia Herniated nucleus pulposus, C5-6 Depression Rheumatoid arthritis Bilateral shoulder pain CARLY (stress urinary incontinence, female) Hepatomegaly Bronchitis Pneumonia Pulmonary nodules Sciatica Diverticulosis Hx of prolonged Q-T interval on ECG Osteoarthritis Diabetes HLD (hyperlipidemia) Surgical History (Updated 10/24/24 @ 10:42 by Michaela Allred RN) Hx of cervical spine surgery (02/2024) Hx of colonoscopy (05/12/23) History of total replacement of right shoulder joint (12/11/18) History of lumbar surgery History of arthroplasty of left shoulder (12/16/21) History of arthroplasty of left knee History of arthroplasty of right knee History of lumbar spinal fusion (11/17/17) Hx of tonsillectomy History of hysterectomy History of section Hx of umbilical hernia repair Hx of cholecystectomy Status post cataract extraction of both eyes with insertion of intraocular lens (~2017) Family History (Updated 12/07/21 @ 13:30 by Mena Wynn RN) Mother Breast cancer Mother Breast cancer Father Diabetes mellitus Other Blood clotting disorder Social History household members: spouse Smoking Status: Never smoker alcohol intake: current Assessment & Plan Assessment & Plan narrative: Diabetes mellitus type 2 -continue glimepiride, Jardiance and high dose lispro correctional scale. -add long-acting Lantus insulin if sugars leave the mid 100 range. Post orthopedic surgery acute blood loss anemia -hemoglobin 9.8, addressed per Orthopedics Hypertension -continue metoprolol tartrate and losartan -blood pressures have been controlled. DVT prevention -aspirin 81 mg b.i.d. and SCD. Time-Based Coding :: [TOTAL MINUTES] spent with patient and on the chart (including review of chart, obtaining history, exam, reviewing outside data, placing orders, documenting exam and treatment plan, and counseling patient) on [DATE].
[2024-11-02 08:00] VITALS: BP 113/55; PULSE 100; RESP 16; TEMP 36.2; O2SAT 97
[2024-11-02] MEDS: METOPROLOL IR 50 MG TABLET PO (08:29)
[2024-11-02] MEDS: GLIMEPIRIDE 2 MG TABLET PO (08:29)
[2024-11-02] MEDS: SITAGLIPTIN 50 MG TABLET 100 MG PO (08:29)
[2024-11-02] MEDS: ASPIRIN EC 81 MG TABLET PO ×2 (08:29→21:07)
[2024-11-02] MEDS: INSULIN LISPRO 100 UNIT/ML 3ML VIAL SUBCUT ×2 (08:29→12:05)
[2024-11-02] MEDS: SODIUM CHLORIDE 0.9% FLUSH 10 ML IV ×2 (08:30→21:06)
--- NOTE | 2024-11-02 08:45 | P.PN_ITS ---
Subjective Subjective Date Patient Seen: 11/02/24 Time Patient Seen: 08:46 Interval history: Yanira is sitting up in a chair, c/o pain but otherwise doing ok. Per CM notes, plan is for d/c to [facility] on 11/04 or 11/05, which pt is in full agreement with. Dr Pena came by last night to assess pt, and Dr Larios is now on board to help manage medical conditions, primarily glycemic control. Exam Vital Signs (past 8 hours): - 11/02/24 08:00 Temperature 97.1 F L Pulse Rate 100 H Respiratory Rate 16 Blood Pressure 113/55 L Pulse Oximetry 97 Oxygen Flow Rate 0 Fraction of Inspired Oxygen 28 SaO2/FiO2 Ratio 350 Oxygen Delivery Method Nasal Cannula Oxygen Flow Rate 0 Narrative Exam Narrative: Hand is swollen, but sensation to touch is intact throughout. There is a large amount of resolving ecchymosis throughout left neck, shoulder girdle, arm. Her Aquacel dressing had a moderate amount of bloody drainage and was changed; incision looks good, no active discharge. She is able to wiggle fingers, biceps and triceps about 3/5, mostly d/t pain. Objective Labs 11/01/24 05:42 11/01/24 05:42 [facility] Medical History (Updated 11/02/24 @ 08:57 by Kathy Ken PA-C) Anesthesia Herniated nucleus pulposus, C5-6 Depression Rheumatoid arthritis Bilateral shoulder pain CARLY (stress urinary incontinence, female) Hepatomegaly Bronchitis Pneumonia Pulmonary nodules Sciatica Diverticulosis Hx of prolonged Q-T interval on ECG Osteoarthritis Diabetes HLD (hyperlipidemia) Surgical History (Updated 10/24/24 @ 10:42 by Michaela Allred RN) Hx of cervical spine surgery (02/2024) Hx of colonoscopy (05/12/23) History of total replacement of right shoulder joint (12/11/18) History of lumbar surgery History of arthroplasty of left shoulder (12/16/21) History of arthroplasty of left knee History of arthroplasty of right knee History of lumbar spinal fusion (11/17/17) Hx of tonsillectomy History of hysterectomy History of section Hx of umbilical hernia repair Hx of cholecystectomy Status post cataract extraction of both eyes with insertion of intraocular lens (~2017) Family History (Updated 12/07/21 @ 13:30 by Mena Wynn RN) Mother Breast cancer Mother Breast cancer Father Diabetes mellitus Other Blood clotting disorder Social History household members: spouse Smoking Status: Never smoker alcohol intake: current Assessment & Plan Post-op Assessment and plan (1) Periprosthetic fracture around internal prosthetic shoulder joint: Assessment and Plan narrative: 1) Sling for support and comfort. May come out for gentle AROM and PROM. No weightbearing on the LUE > 1 pound. 2) She has a known radial nerve palsy this occurred with her humerus shaft fracture which is not uncommon. The radial nerve was explored during surgery and was intact. We will follow clinically the typically takes 3-9 months to recover. 3) Will continue to monitor pain control, oxycodone w/ hydromorphone as needed. 4) Aspirin for DVT prophylaxis. 5) SNF placement per CM - please put PASRR in chart if it needs to be signed. 6) Appreciate Dr Anderson's help with glycemic control. Postoperative Procedures: Procedures Operation Date: 10/31/24 11:45 Actual Procedure Side Surgeon p Open reduction internal fixation left humerus fracture. Left Spring Pena MD Postoperative day: 2
--- NOTE | 2024-11-02 09:30 | PT.IPTN ---
Current Diagnoses Periprosthetic fracture around other internal prosthetic joint, initial encounter (11/01/24) Periprosthetic fracture around unspecified internal prosthetic joint, initial encounter (11/01/24) Presence of unspecified artificial shoulder joint (11/01/24) Surgery Performed Operation Date: 10/31/24 11:45 Actual Procedures p Open reduction internal fixation left humerus fracture.(Left) - Spring Pena MD Physical Therapy Treatment Note M2 PT-IP Current Condition Start: 11/01/24 07:53 Freq: NEEDED Status: Active Protocol: Document 11/01/24 09:01 MB (Rec: 11/01/24 10:50 MB [id number]) Physical Therapy Current Condition Current Condition Evaluation Date 11/01/24 Treatment Diagnosis Fall, left humeral fracture with radial nerve damage, hit head, orthostasis M3 PT-IP Subjective Start: 11/01/24 07:53 Freq: NEEDED Status: Active Protocol: Document 11/02/24 09:30 AB (Rec: 11/02/24 12:54 AB [id number]) Subjective Physical Therapy Visit Type Type Treatment Note Visit Start Time 09:30 Visit Stop Time 09:45 Number of TIP PRINTER Visits 0 Physical Therapy Visit Comments Patient Comments c/o increase L shoulder and wrist pain Therapy Pain Assessment Pain When Pain Assessed At Rest Pain Present Pain Present Pain Reported Location LUE Intensity 10 Scale Used Numeric (0 - 10) Pain Management Techniques Apply Cold,Distraction, Modification of Treatment,Re- positioning,Timing of Activity with Medications M4 PT-IP Mobility and Gait Start: 11/01/24 07:53 Freq: NEEDED Status: Active Protocol: Document 11/02/24 09:30 AB (Rec: 11/02/24 12:54 AB [id number]) PT-Transfer Assessment Comments Mobility Comments pt sitting on the chair. pt sling was on forearm but not fastened and gown also not fastened. ice pack on chair and not positioned on pt. pt c/o 10/10 on L shoulder and wrist. agreed for PT to reposition pt's LUE. attemped to kristopher sling and wrist support on but pt c/o increase pain and refused further activities. positioned LUE on pillows for comfort. ice pack positioned on shoulder and wrist. chair alarm on. call light and table next to pt. informed nurse regarding pain. M5 PT-IP Objective Assessments Start: 11/01/24 07:53 Freq: NEEDED Status: Active Protocol: Document 11/01/24 09:01 MB (Rec: 11/01/24 10:50 MB [id number]) Orientation Orientation/Cognition Level of Alertness Alert Language Function Ability No Deficits Noted Safety Awareness Understands Safety Issues Memory Description No Deficits Noted Gross Range of Motion Upper Extremity ROM Assessment Left Impaired Impairments See OT note, ecchymosis and edema LUE, arm in sling, post- op, wrist brace in room and pt does not wish to wear Lower Extremity ROM Assessment Within Functional Limits Strength Lower Extremity Strength Assessment Within Functional Limits Coordination Assessment Gross Coordination Gross Coordination Impaired Assessment Coordination Comments No LUE functional use today Sensation Assessment Comments Sensation Comments Changes LUE M6 PT-IP Treatment Start: 11/01/24 07:53 Freq: NEEDED Status: Active Protocol: Document 11/02/24 09:30 AB (Rec: 11/02/24 12:54 AB [id number]) Physical Therapy Treatment Education Education Provided Safety M7 PT-IP Assessment and Plan Start: 11/01/24 07:53 Freq: NEEDED Status: Active Protocol: Document 11/02/24 09:30 AB (Rec: 11/02/24 12:54 AB [id number]) PT Summary Assessment and Plan Potential Rehabilitation Potential Fair Summary Impairments Pain,ROM,Strength,Balance, Coordination,Sensation,Tone, Cognition,Bed Mobility, Transfers,Gait,Activity Tolerance Progress Towards Goals Slow Progress due to Pain,Slow Progress due to Activity Tolerance Assessment Summary pt c/o increase pain this morning and unable to participate much with PT. will continue to assess pgoress. Goals Bed Mobility Goal Independent Transfer Goal Independent,Cane Gait Goal Independent,Cane Gait Distance 50 Days to Meet Goals 10 Frequency of Treatment Other frequency 1-2/day Treatment Plan Physical Therapy Treatment Plan Bed Mobility Training,Transfer Training,Gait Training, Therapeutic Exercise,Balance Retraining,Post Op Education, Discharge Planning,Hot or Cold Pack,Neuromuscular Re-ed, Coordination Retraining,Manual Therapy Precautions Shoulder Precautions Sling,Pendulums Other Precautions 1 pound weight limit LUE written in op report Weight Bearing Status Weight Bearing Status Non-Weight Bearing Allowed Weight Bearing Amount (enter % LUE or #) (%) Recommendations To Nursing Amount of Assist Needed 2 Person Assist Discharge Recommendations PT Discharge Recommendations SNF Rehab Transportation Needs at Discharge Wheelchair/Cabulance
--- NOTE | 2024-11-02 11:21 | CM.DPNOTE ---
DCP note CHIEF SERVICE DISPATCHER reviewed EMR Per provider in morning rounds, cleared to dc to SNF when able. Per DORY RN, changed to INPT status the . qualifies for SNF . Per Jennifer at , can take pt Tuesday after 3rd midnight of INPT status. Transport sometime between 11:30/12pm. Ortho KORY Chavez signed hospital exempt PASRR. PASRR placed behind FS. CHIEF SERVICE DISPATCHER met with pt in room. eager and agreeable to dc to [facility] when able. CHIEF SERVICE DISPATCHER reviewed INS coverage. pt expressed understanding. P: Dc to [facility] Tuesday around 11:30/12. med list/scripts needed. CM team will continue to follow as needed. ADRIANNE El
--- NOTE | 2024-11-02 13:45 | OT.IP.TRT ---
Current Diagnoses Periprosthetic fracture around other internal prosthetic joint, initial encounter (11/01/24) Periprosthetic fracture around unspecified internal prosthetic joint, initial encounter (11/01/24) Presence of unspecified artificial shoulder joint (11/01/24) Surgery Performed Operation Date: 10/31/24 11:45 Actual Procedures p Open reduction internal fixation left humerus fracture.(Left) - Spring Pena MD Occupational Therapy Treatment Note M2 OT-IP Current Condition Start: 11/01/24 10:28 Freq: Status: Active Protocol: Document 11/01/24 10:29 [facility] (Rec: 11/01/24 10:50 [facility] [id number]) Occupational Therapy Current Condition Current Condition Evaluation Date 11/01/24 Treatment Diagnosis Fall, Left humerus fracture and with radial nerve damage, s/p LUE ORIF Post Operative Precautions Shoulder Precautions Sling,Pendulums Other Precautions No active lifting with the arm greater than 1 lb. Pt may come out of right wrist brace to work on gentle ROM Weight Bearing Status Weight Bearing Status Non-Weight Bearing M3 OT- IP Subjective and Pain Start: 11/01/24 10:28 Freq: Status: Active Protocol: Document 11/02/24 13:43 [facility] (Rec: 11/02/24 13:54 [facility] [id number]) OT- Subjective Occupational Therapy Visit Type Type Treatment Note Visit Start Time 13:25 Visit Stop Time 13:41 Occupational Therapy Visit Comments Patient Comments Pt is lots of pain and not wanting to get up for try pendulums at this time. Pt's sling off and supported with lots of pillow and ice bags on her arm. Patient/Caregiver Goals To go to skilled rehab. OT Pain Assessment Pain When Pain Assessed At Rest Pain Present Pain Present Pain Reported Location LUE Pain Behaviors Calling Out,Facial Grimacing, Holding Area,Moaning M6 OT- IP Functional Cognition Start: 11/01/24 10:28 Freq: Status: Active Protocol: Document 11/01/24 10:29 [facility] (Rec: 11/01/24 10:50 [facility] [id number]) Cognitive Factors Limiting Selfcare Function Cognitive Ability Level of Alertness Alert Patient Orientation Name,Place,Situation Attention Span Ability Capable of Focused Attention, Capable of Sustained Attention Ability to Follow Commands Able to Follow One Step Commands Cognitive Comments Cognitive Assessment Comments Pt able to follow commands for ADL and mobility needs. M8 OT- IP Objective Assessments Start: 11/01/24 10:28 Freq: Status: Active Protocol: Document 11/01/24 10:29 [facility] (Rec: 11/01/24 10:50 [facility] [id number]) OT Gross Range of Motion Upper Extremity Range of Motion Assessment Left Impaired OT Strength Upper Extremity Strength Assessment Left Impaired M9 OT- IP Assessment and Plan Start: 11/01/24 10:28 Freq: Status: Active Protocol: Document 11/02/24 13:43 [facility] (Rec: 11/02/24 13:54 [facility] [id number]) OT Summary Assessment and Plan Potential Rehabilitation Potential Excellent Analytic Complexity at Evaluation Low Summary OT Impairments Pain,Range of Motion,Strength, Balance,Functional Mobility, Self-Feeding,Grooming,Dressing ,Toileting,Bathing,Toilet Transfers,Shower Transfers Progress Towards Goals Slow Progress due to Pain,Slow Progress due to Medical Issues,Slow Progress due to Activity Tolerance Assessment Summary Able to do gentle massage to left hand, repositioned on pillow to help elevate her hand. Attempted to put the wrist brace on and her left hand too swollen at this time. Able to touch base with the nurse as pt wanting pain meds and that the sling will have to be put on prior to getting up from the recliner. Goals Self-Feeding Goal Standby Assistance Grooming Goal Standby Assistance Dressing Goal Minimal Assistance Toileting Goal Standby Assistance Bathing Goal Minimal Assistance Toilet Transfer Goal Independent Shower Transfer Goal Standby Assistance Days to Meet Goals 15 Frequency of Treatment Other frequency 5x/week Treatment Plan OT Treatment Plan ADL Training,Functional Mobility,Patient/Family Education,Discharge Planning Discharge Recommendations OT Discharge Recommendations SNF Rehab Transportation Needs at Discharge Wheelchair/Cabulance
--- NOTE | 2024-11-02 15:05 | PT.IPTN ---
Current Diagnoses Periprosthetic fracture around other internal prosthetic joint, initial encounter (11/01/24) Periprosthetic fracture around unspecified internal prosthetic joint, initial encounter (11/01/24) Presence of unspecified artificial shoulder joint (11/01/24) Surgery Performed Operation Date: 10/31/24 11:45 Actual Procedures p Open reduction internal fixation left humerus fracture.(Left) - Spring Pena MD Physical Therapy Treatment Note M2 PT-IP Current Condition Start: 11/01/24 07:53 Freq: NEEDED Status: Active Protocol: Document 11/01/24 09:01 MB (Rec: 11/01/24 10:50 MB [id number]) Physical Therapy Current Condition Current Condition Evaluation Date 11/01/24 Treatment Diagnosis Fall, left humeral fracture with radial nerve damage, hit head, orthostasis M3 PT-IP Subjective Start: 11/01/24 07:53 Freq: NEEDED Status: Active Protocol: Document 11/02/24 15:05 AB (Rec: 11/02/24 15:48 AB [id number]) Subjective Physical Therapy Visit Type Type Treatment Note Visit Start Time 15:05 Visit Stop Time 15:25 Number of TENNIS NET MAKER Visits 0 Physical Therapy Visit Comments Patient Comments agreeable to do PT Therapy Pain Assessment Pain When Pain Assessed At Rest Pain Present Pain Present Pain Reported Location LUE Intensity 12 Scale Used Numeric (0 - 10) Pain Management Techniques Modification of Treatment,Re- positioning,Timing of Activity with Medications M4 PT-IP Mobility and Gait Start: 11/01/24 07:53 Freq: NEEDED Status: Active Protocol: Document 11/02/24 15:05 AB (Rec: 11/02/24 15:48 AB [id number]) PT-Transfer Assessment Sit to and From Stand Sit to and from Stand Minimal Assistance,1 Person Assistance,Use of Upper Extremities Equipment Transfer Assistive Device Gait Belt,Marcus Walker Orthotic/Prosthetic Devices or Brace: Yes Comments Mobility Comments pt sitting on the chair and agreeable to do PT. agreed to for PT to put sling on. sling donned and adjusted to pt. pt completed sit to stand min A and ambulated in room using hemiwalker CGA and cues. increase forward lean and cued pt for upright posterior. pt stated that she tends to lean forward due to her back pain. pt ambulated back to the chair. positioned pt on the chair. call light and table placed within reach. Gait Assessment Gait Gait Assistance Required: Contact Guard Assist Distance (Feet) 20 Able to Maintain Weight Bearing Status Yes During Gait Assistive Devices Assistive Device Gait Belt,Marcus Walker Orthotic/Prosthetic Devices or Brace: Yes Gait Deviations General Gait Pattern Decreased Stride Length, Decreased Feet Clearance, Flexed Trunk Factors Limiting Gait Function Factors Limiting Gait Function Decreased Activity Tolerance, Decreased Sensation,Decreased Strength,Limited Range of Motion,Pain,Poor Balance,Poor Safety Awareness M5 PT-IP Objective Assessments Start: 11/01/24 07:53 Freq: NEEDED Status: Active Protocol: Document 11/01/24 09:01 MB (Rec: 11/01/24 10:50 MB [id number]) Orientation Orientation/Cognition Level of Alertness Alert Language Function Ability No Deficits Noted Safety Awareness Understands Safety Issues Memory Description No Deficits Noted Gross Range of Motion Upper Extremity ROM Assessment Left Impaired Impairments See OT note, ecchymosis and edema LUE, arm in sling, post- op, wrist brace in room and pt does not wish to wear Lower Extremity ROM Assessment Within Functional Limits Strength Lower Extremity Strength Assessment Within Functional Limits Coordination Assessment Gross Coordination Gross Coordination Impaired Assessment Coordination Comments No LUE functional use today Sensation Assessment Comments Sensation Comments Changes LUE M6 PT-IP Treatment Start: 11/01/24 07:53 Freq: NEEDED Status: Active Protocol: Document 11/02/24 15:05 AB (Rec: 11/02/24 15:48 AB [id number]) Physical Therapy Treatment Education Education Provided Safety M7 PT-IP Assessment and Plan Start: 11/01/24 07:53 Freq: NEEDED Status: Active Protocol: Document 11/02/24 15:05 AB (Rec: 11/02/24 15:48 AB [id number]) PT Summary Assessment and Plan Potential Rehabilitation Potential Fair Summary Impairments Pain,ROM,Strength,Balance, Coordination,Sensation,Tone, Cognition,Bed Mobility, Transfers,Gait,Activity Tolerance Progress Towards Goals Slow Progress due to Pain Assessment Summary pt continues to have increase LUE pain affecting mobility tolerance. pt was able to ambulate this afternoon using a hemiwalker but on ~ 20 ft. pt will benefit from SNF rehab to improve mobility independence. Goals Bed Mobility Goal Independent Transfer Goal Independent,Cane Gait Goal Independent,Cane Gait Distance 50 Days to Meet Goals 10 Frequency of Treatment Other frequency 1-2/day Treatment Plan Physical Therapy Treatment Plan Bed Mobility Training,Transfer Training,Gait Training, Therapeutic Exercise,Balance Retraining,Post Op Education, Discharge Planning,Hot or Cold Pack,Neuromuscular Re-ed, Coordination Retraining,Manual Therapy Precautions Shoulder Precautions Sling,Pendulums Other Precautions 1 pound weight limit LUE written in op report Weight Bearing Status Weight Bearing Status Non-Weight Bearing Allowed Weight Bearing Amount (enter % LUE or #) (%) Recommendations To Nursing Amount of Assist Needed 1 Person Assist Discharge Recommendations PT Discharge Recommendations SNF Rehab Transportation Needs at Discharge Wheelchair/Cabulance
[2024-11-02] MEDS: HYDROMORPHONE 0.5 MG INJ IV (15:09)
[2024-11-02 16:50] VITALS: BP 117/54; PULSE 83
[2024-11-02] MEDS: LOSARTAN 50 MG TABLET PO (16:50)
[2024-11-02] MEDS: GABAPENTIN 300 MG CAPSULE 600 MG PO (19:29)
[2024-11-02 19:31] VITALS: BP 102/45; PULSE 94; RESP 16; TEMP 36; O2SAT 95
[2024-11-02] MEDS: ATORVASTATIN 20 MG TABLET 10 MG PO (21:03)
[2024-11-02] MEDS: DULOXETINE 30 MG CAPSULE 60 MG PO (21:03)
[2024-11-03] MEDS: ACETAMINOPHEN 325 MG TABLET 650 MG PO ×3 (02:21→20:19)
[2024-11-03] MEDS: OXYCODONE IR 10 MG TABLET PO ×5 (02:21→23:11)
--- NOTE | 2024-11-03 07:12 | PM.PN.1 ---
Subjective Subjective Date Patient Seen: 11/03/24 Interval history: She is seen today to follow-up her hyperglycemia related to postop dietary and general immobilization. Her blood sugars are much better now varying between 114 up to 186. She has not needed any long-acting insulin to be added. She is excited and grateful to be going to the rehab in 2 more days. Exam Vital Signs (past 8 hours): Fraction of Inspired Oxygen 28 SaO2/FiO2 Ratio 350 Oxygen Delivery Method Nasal Cannula Oxygen Flow Rate 0 Narrative Exam Narrative: Alert and oriented, no apparent distress. Heart is regular rate and rhythm without murmur Lungs are clear to auscultation bilaterally Extremities have no ankle edema Objective Labs 11/01/24 05:42 11/01/24 05:42 [facility] Medical History (Updated 11/02/24 @ 08:57 by Kathy Ken PA-C) Anesthesia Herniated nucleus pulposus, C5-6 Depression Rheumatoid arthritis Bilateral shoulder pain CARLY (stress urinary incontinence, female) Hepatomegaly Bronchitis Pneumonia Pulmonary nodules Sciatica Diverticulosis Hx of prolonged Q-T interval on ECG Osteoarthritis Diabetes HLD (hyperlipidemia) Surgical History (Updated 10/24/24 @ 10:42 by Michaela Allred RN) Hx of cervical spine surgery (02/2024) Hx of colonoscopy (05/12/23) History of total replacement of right shoulder joint (12/11/18) History of lumbar surgery History of arthroplasty of left shoulder (12/16/21) History of arthroplasty of left knee History of arthroplasty of right knee History of lumbar spinal fusion (11/17/17) Hx of tonsillectomy History of hysterectomy History of section Hx of umbilical hernia repair Hx of cholecystectomy Status post cataract extraction of both eyes with insertion of intraocular lens (~2017) Family History (Updated 12/07/21 @ 13:30 by Mena Wynn RN) Mother Breast cancer Mother Breast cancer Father Diabetes mellitus Other Blood clotting disorder Social History household members: spouse Smoking Status: Never smoker alcohol intake: current Assessment & Plan Assessment and plan (1) Periprosthetic fracture around internal prosthetic shoulder joint: Status: Acute Assessment & Plan narrative: Diabetes mellitus type 2 -continue glimepiride, Jardiance and high dose lispro correctional scale. -add long-acting Lantus insulin if sugars leave the mid 100 range. Post orthopedic surgery acute blood loss anemia -hemoglobin 9.8, addressed per Orthopedics Hypertension -continue metoprolol tartrate and losartan. DVT prevention -aspirin 81 mg b.i.d. and SCD. Placement:[facility] nursing [facility] on 11/05/2019 Time-Based Coding :: [TOTAL MINUTES] spent with patient and on the chart (including review of chart, obtaining history, exam, reviewing outside data, placing orders, documenting exam and treatment plan, and counseling patient) on [DATE].
--- NOTE | 2024-11-03 07:36 | PM.DS.1 ---
History of Present Illness History of Present Illness Date Patient Seen: 11/03/24 Time Patient Seen: 07:36 Chief complaint: SDC Narrative: Operative Date/Time/Diagnoses Date of procedure: 10/31/24 Time of procedure: 11:45 Pre-op diagnosis: Left proximal humerus fracture with shaft extension Periprosthetic shoulder fracture, left Radial nerve palsy left Left humerus shaft fracture Post-op diagnosis: same Procedure & Clinicians Procedure: Open reduction internal fixation left humerus shaft fracture with proximal extension, periprosthetic. CPT code 83570 Exploration radial nerve CPT code 19242, left Procedure performed with a modifier 22 for increased complexity requiring meticulous dissection for nerve injury with comminuted humerus fracture proximally 3-week-old with copious callus requiring meticulous dissection and mobilization of fracture fragments to gain reduction and to explore and confirm nerve integrity. As well as reopen the previously operated proximal aspect of the wound bed from the previous shoulder arthroplasty. Same procedure as scheduled: Yes Indications: The patient is a 74-year-old female that had anatomic shoulder replacement by Dr. Tamayo 4 years ago she fell while she was visiting family in [facility] and sustained a comminuted left humerus fracture that was a shaft fracture with proximal extension up to the level of the shoulder prosthesis. Shoulder prosthesis appears stable. The patient has developed a radial nerve palsy after her fall and can not extend her wrist. She has been indicated for open reduction internal fixation for her comminuted proximal humerus and humeral shaft fracture that is periprosthetic. Discussed additional exploration of radial nerve with palsy. Discussed radial nerves typically a stretch injury with the injuries and usually recovers but can take months. Discussed risks for malunion nonunion infection persistent nerve damage and pain. The risks and benefits of the procedure have been discussed with the patient and given the opportunity to ask questions. The risks of surgery include but are not limited to infection, malunion, nonunion, persistence of pain, damage to nerves and blood vessels, posttraumatic arthritis, DVT, PE, cardiopulmonary complications and . The patient expressed a thorough understanding of the risks and benefits of surgery and has elected to proceed. Consent was signed Surgeon: Spring Pena Sales Manager: Rebel Sheikh Anesthesia Type: General Operative Notes Findings: Radial nerve was intact but traverses the humerus directly at the level of the most distal aspect of the fracture right proximal to the most distal which is the 7th screw from the bottom of the plate There was extensive amount of scarring within the wound bed both from the previous shoulder surgery proximally and along the fracture due to being nearly 3-week-old. Required meticulous dissection due to the nature of the fracture and the known nerve injury. Meticulous dissection exploration for the radial nerve as well as for mobilizing the fracture fragments in order to gain reduction. Took approximately twice as long as the standard humeral shaft fracture due to this requirement. Closure Type: primary Specimen(s): none sent Prosthetic devices, grafts, tissues, transplants, or devices: Mao and Nephew 15 hole EVOS proximal humerus locking plate with locking and nonlocking screws. EVOS cable Estimated Blood Loss (mL): 100 Blood products transfused: none Tourniquet time (min): 0 Discharge Providers Provider Date of admission: 11/01/24 13:23 Discharge Date: 11/04/24 Primary care physician: Christin Linares PA-C Consults: 10/31/24 06:00 Consult to Anesthesiology Routine Comment: Consulting Provider: Anesthesiologist Reason for consultation: Post operative pain managment Has provider been notified: No 10/31/24 16:19 Consult to Discharge Planning Routine Comment: Consult to Occupational Therapy Evaluate & Treat Comment: Physician Instructions: Evaluate and treat Consult to Physical Therapy Evaluate & Treat Comment: NBA GRAVES Physician Instructions: Evaluate and Treat 11/01/24 15:34 Consult to Hospitalist Service Routine Comment: Consulting Provider: Hattie Larios Reason for consultation: dm Has provider been notified: Yes Discharge provider: Kathy Ken PA-C Summary Hospital Course Discharge Diagnosis: Left proximal humerus fracture with shaft extension, Periprosthetic shoulder fracture, left , Radial nerve palsy left, Left humerus shaft fracture; s/p ORIF of LEFT periprosthetic humerus fracture and exploration of radial nerve Hospital Course: Ms Lundberg's hospital course was remarkable for difficulty with pain control. She was given oxycodone 10mg q 3 hrs orally w/ IV hydromorphone for BTP. She was started on cyclobenzaprine on POD# 3. She is RHD, but because she does not have adequate help at home to manage with her ADLs, she required transfer to a SNF prior to discharge. Hospitalist service was also consulted to help with glycemic control. Exam Vital Signs (past 8 hours): Fraction of Inspired Oxygen 28 SaO2/FiO2 Ratio 350 Oxygen Delivery Method Nasal Cannula Oxygen Flow Rate 0 Narrative Exam Narrative: 5/5 hand packer/packager strength, biceps, triceps on left. Known radial nerve palsy. Aquacel dressing will be changed prior to discharge. Objective Labs 11/01/24 05:42 11/01/24 05:42 [facility] Medical History (Updated 11/02/24 @ 08:57 by Kathy Ken PA-C) Anesthesia Herniated nucleus pulposus, C5-6 Depression Rheumatoid arthritis Bilateral shoulder pain CARLY (stress urinary incontinence, female) Hepatomegaly Bronchitis Pneumonia Pulmonary nodules Sciatica Diverticulosis Hx of prolonged Q-T interval on ECG Osteoarthritis Diabetes HLD (hyperlipidemia) Surgical History (Updated 10/24/24 @ 10:42 by Michaela Allred RN) Hx of cervical spine surgery (02/2024) Hx of colonoscopy (05/12/23) History of total replacement of right shoulder joint (12/11/18) History of lumbar surgery History of arthroplasty of left shoulder (12/16/21) History of arthroplasty of left knee History of arthroplasty of right knee History of lumbar spinal fusion (11/17/17) Hx of tonsillectomy History of hysterectomy History of section Hx of umbilical hernia repair Hx of cholecystectomy Status post cataract extraction of both eyes with insertion of intraocular lens (~2017) Family History (Updated 12/07/21 @ 13:30 by Mena Wynn RN) Mother Breast cancer Mother Breast cancer Father Diabetes mellitus Other Blood clotting disorder Social History household members: spouse Smoking Status: Never smoker alcohol intake: current Discharge Assessment & Plan Assessment and Plan Assessment: Left proximal humerus fracture with shaft extension, Periprosthetic shoulder fracture, left , Radial nerve palsy left, Left humerus shaft fracture; s/p ORIF of LEFT periprosthetic humerus fracture and exploration of radial nerve Plan of Treatment: Discharge to SNF tomorrow per CM. F/u w/ ortho in 2 weeks as scheduled for wound check. Discharge Plan Discharge Plan Patient Disposition: SNF Transfer to: [facility] Discharge orders & Medications Prescriptions: New aspirin 81 mg Tablet,Delayed Release (Dr/Ec) 81 mg PO BID Qty: 60 0RF cyclobenzaprine 10 mg Tablet 10 mg PO Q8HR PRN (Reason: Spasms) Qty: 30 0RF ondansetron 4 mg Tablet,Disintegrating 4 mg PO Q4HR PRN (Reason: Nausea And Vomiting) Qty: 30 0RF polyethylene glycol 3350 17 gram Powder In Packet 17 g PO DAILY Qty: 30 1RF oxycodone 5 mg Tablet 5 mg PO Q3H PRN (Reason: Pain, Moderate (4-6)) Qty: 30 0RF Rx Instructions: May take 10mg (2 tabs) q3H for SEVERE pain (7-10) Continued duloxetine [Cymbalta] 60 MG capsule,delayed release(DR/EC) 60 mg PO HS Qty: 0 simvastatin 40 mg Tablet 20 mg PO BEDTIME Januvia 100 mg Tablet 100 mg PO DAILY acetaminophen 500 mg capsule 1,000 mg PO Q8HR Qty: 90 0RF losartan 50 mg Tablet 50 mg PO QPM glimepiride 2 mg Tablet 2 mg PO QAM Rx Instructions: administer with breakfast gabapentin [Neurontin] 300 mg capsule 600 mg PO TID PRN (Reason: Nerve pain) metoprolol tartrate 50 mg tablet 50 mg PO DAILY lidocaine 5 % adhesive patch,medicated 1 patch TOP DAILY MDD 12 hours maximum Qty: 30 4RF Rx Instructions: leave on most painful area for 12 hrs Discontinued oxycodone 5 mg Tablet 5 mg PO Q4-6H PRN (Reason: Pain, Moderate (4-6)) Qty: 30 0RF Follow up/Referrals: Kathy Ken PA-C [[employer] Supervisor] - 11/15/24 4:30 pm (11/15 @ 4:30 with Chato PRATT @ [facility] arti kelsey ) Christin Linares PA-C [Primary Care Provider] - Diet/Activity/Treatments Diet: Carb-consistent/Diabetic Activity: Sling for comfort and support; do not need to wear if not comfortable. No lifting/pushing/pulling more than 1 pound with the left hand. Typing, eating, drinking, reading are all ok. Cold/Heat Therapy: Ice to left shoulder as needed for pain. Skin/Wound/Dressing Care Report to your healthcare provider any signs of infection, such as:: chills, fever, night sweats, unusual drainage and unusual redness Dressing: May shower. Leave dressing in place until follow up in office. No bathing or otherwise soaking incision. If dressing becomes saturated inside, remove and replace with clean, dry gauze. Special Rehabilitation Services Reason for rehabilitation: Post-operative therapy Rehab type: Physical therapy and Occupational therapy Visit Report/Discharge Packet Instructions: DI for Open Reduction Internal Fixation Surgery, DI for Prescription Opioid Use Stand Alone Forms: Patient Portal/API, Surgery Discharge Discharge Data Primary Care Provider: Christin Linares
--- NOTE | 2024-11-03 07:52 | PM.PNPO.1 ---
Subjective Subjective Date Patient Seen: 11/03/24 Time Patient Seen: 07:52 Interval history: Pt sleeping in chair, arouses easily to voice, fully oriented. States pain has improved. Eating and voiding without difficulty. Plan is for [facility] tomorrow. 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 Hand swelling improved since yesterday. 5/5 biceps and triceps. Known radial nerve palsy. Aquacel dressing changed yesterday, new dressing w/ moderate serosanguinous drainage at distal portion. Objective Labs 11/01/24 05:42 11/01/24 05:42 [facility] Medical History (Updated 11/02/24 @ 08:57 by Kathy Ken PA-C) Anesthesia Herniated nucleus pulposus, C5-6 Depression Rheumatoid arthritis Bilateral shoulder pain CARLY (stress urinary incontinence, female) Hepatomegaly Bronchitis Pneumonia Pulmonary nodules Sciatica Diverticulosis Hx of prolonged Q-T interval on ECG Osteoarthritis Diabetes HLD (hyperlipidemia) Surgical History (Updated 10/24/24 @ 10:42 by Michaela Allred RN) Hx of cervical spine surgery (02/2024) Hx of colonoscopy (05/12/23) History of total replacement of right shoulder joint (12/11/18) History of lumbar surgery History of arthroplasty of left shoulder (12/16/21) History of arthroplasty of left knee History of arthroplasty of right knee History of lumbar spinal fusion (11/17/17) Hx of tonsillectomy History of hysterectomy History of section Hx of umbilical hernia repair Hx of cholecystectomy Status post cataract extraction of both eyes with insertion of intraocular lens (~2017) Family History (Updated 12/07/21 @ 13:30 by Mena Wynn RN) Mother Breast cancer Mother Breast cancer Father Diabetes mellitus Other Blood clotting disorder Social History household members: spouse Smoking Status: Never smoker alcohol intake: current Assessment & Plan Post-op Assessment and plan (1) Periprosthetic fracture around internal prosthetic shoulder joint: Assessment and Plan narrative: Per CM, d/c to [facility] tomorrow. Will add cyclobenzaprine to aid with pian control. D/c summary, med list, rxs done; PASRR signed. Pt does not need to be seen by ortho prior to discharge unless there is a new issue. Postoperative Procedures: Procedures Operation Date: 10/31/24 11:45 Actual Procedure Side Surgeon p Open reduction internal fixation left humerus fracture. Left Spring Pena MD Postoperative day: 3
[2024-11-03 08:17] VITALS: BP 105/48; PULSE 94; RESP 19; TEMP 36.1; O2SAT 95
[2024-11-03] MEDS: INSULIN LISPRO 100 UNIT/ML 3ML VIAL SUBCUT ×2 (08:24→11:46)
[2024-11-03] MEDS: SITAGLIPTIN 50 MG TABLET 100 MG PO (08:25)
[2024-11-03] MEDS: METOPROLOL IR 50 MG TABLET PO (08:25)
[2024-11-03] MEDS: ASPIRIN EC 81 MG TABLET PO ×2 (08:25→20:19)
[2024-11-03] MEDS: GLIMEPIRIDE 2 MG TABLET PO (08:25)
[2024-11-03] MEDS: SODIUM CHLORIDE 0.9% FLUSH 10 ML IV ×2 (08:26→20:20)
--- NOTE | 2024-11-03 10:55 | PT.IPTN ---
Current Diagnoses Periprosthetic fracture around other internal prosthetic joint, initial encounter (11/01/24) Periprosthetic fracture around unspecified internal prosthetic joint, initial encounter (11/01/24) Presence of unspecified artificial shoulder joint (11/01/24) Surgery Performed Operation Date: 10/31/24 11:45 Actual Procedures p Open reduction internal fixation left humerus fracture.(Left) - Spring Pena MD Physical Therapy Treatment Note M2 PT-IP Current Condition Start: 11/01/24 07:53 Freq: NEEDED Status: Active Protocol: Document 11/01/24 09:01 MB (Rec: 11/01/24 10:50 MB [id number]) Physical Therapy Current Condition Current Condition Evaluation Date 11/01/24 Treatment Diagnosis Fall, left humeral fracture with radial nerve damage, hit head, orthostasis M3 PT-IP Subjective Start: 11/01/24 07:53 Freq: NEEDED Status: Active Protocol: Document 11/03/24 10:55 AB (Rec: 11/03/24 12:43 AB [id number]) Subjective Physical Therapy Visit Type Type Treatment Note Visit Start Time 10:55 Visit Stop Time 11:20 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 Physical Therapy Visit Comments Patient Comments agreeable to do PT Therapy Pain Assessment Pain When Pain Assessed At Rest Pain Present Pain Present Pain Reported Location LUE Intensity 10 Scale Used Numeric (0 - 10) Pain Behaviors Guarding,Holding Area Pain Management Techniques Apply Cold,Distraction, Modification of Treatment,Re- positioning,Timing of Activity with Medications M4 PT-IP Mobility and Gait Start: 11/01/24 07:53 Freq: NEEDED Status: Active Protocol: Document 11/03/24 10:55 AB (Rec: 11/03/24 12:43 AB [id number]) PT-Transfer Assessment Sit to and From Stand Sit to and from Stand Minimal Assistance,1 Person Assistance,Use of Upper Extremities Equipment Transfer Assistive Device Gait Belt,Marcus Walker Orthotic/Prosthetic Devices or Brace: Yes Transfer Ability Level of Assist Minimal Assistance,1 Person Assistance,Use of Upper Extremities Comments Mobility Comments pt sitting on the chair. c/o L shoulder pain. sling readjusted. pt confirmed that she uses a SPC at home. Assessed ambulation using SPC. completed sit to stand from chair min A and max cues. (+) posterior LOB with initial standing needing min A for steadiness. pt ambulated ~ 10 ft using SPC min A and cues. presents with unsteady gait. pt stated that she feels steadier with hemiwalker. pt switched to a hemiwalker and walked ~ 30 ft using hemiwalker CGA to min A and cues for upright posterior and walker placement. pt refused further ambulation. pt wants to stay up on the chair and stated that the bed is not comfortable for her. positioned pt on the chair. call light and table placed within reach. Gait Assessment Gait Gait Assistance Required: Minimum Assistance Distance (Feet) 35 Able to Maintain Weight Bearing Status Yes During Gait Assistive Devices Assistive Device Gait Belt,Straight Cane,Marcus Walker Orthotic/Prosthetic Devices or Brace: Yes Gait Deviations General Gait Pattern Antalgic,Ataxic,Decreased Stride Length,Decreased Feet Clearance,Step-to Gait Factors Limiting Gait Function Factors Limiting Gait Function Decreased Activity Tolerance, Decreased Strength,Difficulty Following Directions,Limited Range of Motion,Pain,Poor Balance,Poor Safety Awareness M5 PT-IP Objective Assessments Start: 11/01/24 07:53 Freq: NEEDED Status: Active Protocol: Document 11/01/24 09:01 MB (Rec: 11/01/24 10:50 MB [id number]) Orientation Orientation/Cognition Level of Alertness Alert Language Function Ability No Deficits Noted Safety Awareness Understands Safety Issues Memory Description No Deficits Noted Gross Range of Motion Upper Extremity ROM Assessment Left Impaired Impairments See OT note, ecchymosis and edema LUE, arm in sling, post- op, wrist brace in room and pt does not wish to wear Lower Extremity ROM Assessment Within Functional Limits Strength Lower Extremity Strength Assessment Within Functional Limits Coordination Assessment Gross Coordination Gross Coordination Impaired Assessment Coordination Comments No LUE functional use today Sensation Assessment Comments Sensation Comments Changes LUE M6 PT-IP Treatment Start: 11/01/24 07:53 Freq: NEEDED Status: Active Protocol: Document 11/03/24 10:55 AB (Rec: 11/03/24 12:43 AB [id number]) Physical Therapy Treatment Education Education Provided Precautions,Safety M7 PT-IP Assessment and Plan Start: 11/01/24 07:53 Freq: NEEDED Status: Active Protocol: Document 11/03/24 10:55 AB (Rec: 11/03/24 12:43 AB [id number]) PT Summary Assessment and Plan Potential Rehabilitation Potential Fair Summary Impairments Pain,ROM,Strength,Balance, Coordination,Sensation,Tone, Cognition,Bed Mobility, Transfers,Gait,Activity Tolerance Progress Towards Goals Slow Progress due to Pain,Slow Progress due to Activity Tolerance Assessment Summary pt requiring min A with transfers and ambulation and continues to c/o increase L shoulder pain affecting activity tolerance and mobility independence. pt will benefit from SNF rehab to improve overall function. Goals Bed Mobility Goal Independent Transfer Goal Independent,Cane Gait Goal Independent,Cane Gait Distance 50 Days to Meet Goals 10 Frequency of Treatment Frequency Of Treatment Once a Day Other frequency . Treatment Plan Physical Therapy Treatment Plan Bed Mobility Training,Transfer Training,Gait Training, Therapeutic Exercise,Balance Retraining,Post Op Education, Discharge Planning,Hot or Cold Pack,Neuromuscular Re-ed, Coordination Retraining,Manual Therapy Precautions Shoulder Precautions Sling,Pendulums Other Precautions 1 pound weight limit LUE written in op report Weight Bearing Status Weight Bearing Status Non-Weight Bearing Allowed Weight Bearing Amount (enter % LUE or #) (%) Recommendations To Nursing Amount of Assist Needed 1 Person Assist Discharge Recommendations PT Discharge Recommendations SNF Rehab Transportation Needs at Discharge Wheelchair/Cabulance
[2024-11-03] MEDS: CYCLOBENZAPRINE 10 MG TABLET PO (11:31)
[2024-11-03 16:55] VITALS: BP 109/49; PULSE 76; RESP 19; TEMP 36.1; O2SAT 95
[2024-11-03 20:00] VITALS: BP 118/54; PULSE 86; RESP 16; TEMP 35.8; TEMP 36.5; O2SAT 97
[2024-11-03] MEDS: ATORVASTATIN 20 MG TABLET 10 MG PO (20:19)
[2024-11-03] MEDS: OXYCODONE IR 5 MG TABLET PO (20:19)
[2024-11-03] MEDS: DULOXETINE 30 MG CAPSULE 60 MG PO (20:19)
[2024-11-03] MEDS: GABAPENTIN 300 MG CAPSULE 600 MG PO (22:54)
[2024-11-04 02:00] VITALS: BP 120/49; PULSE 94; RESP 20; TEMP 36.1; O2SAT 94
[2024-11-04] MEDS: ACETAMINOPHEN 325 MG TABLET 650 MG PO ×2 (02:31→09:58)
[2024-11-04] MEDS: OXYCODONE IR 10 MG TABLET PO ×2 (02:31→10:43)
--- NOTE | 2024-11-04 07:41 | P.PN_ITS ---
Subjective Subjective Date Patient Seen: 11/04/24 Interval history: She is seen today to follow-up her hypertension and her diabetic hyperglycemia. Her blood sugars range from 99 up to 158. She is being discharged to the senior care facility for rehab today by Orthopedics. Exam Vital Signs (past 8 hours): - 11/04/24 02:00 Temperature 97.0 F L Pulse Rate 94 H Respiratory Rate 20 Blood Pressure 120/49 L Pulse Oximetry 94 Oxygen Flow Rate 0 Fraction of Inspired Oxygen 28 SaO2/FiO2 Ratio 350 Oxygen Delivery Method Nasal Cannula Oxygen Flow Rate 0 Narrative Exam Narrative: Alert and oriented x3. No apparent distress. Heart is regular rate and rhythm without murmur Lungs are clear to auscultation bilaterally Extremities have no ankle edema Left shoulder has significant bruising and an intact dressing in place. Objective Labs 11/01/24 05:42 11/01/24 05:42 [facility] Medical History (Updated 11/02/24 @ 08:57 by Kathy Ken PA-C) Anesthesia Herniated nucleus pulposus, C5-6 Depression Rheumatoid arthritis Bilateral shoulder pain CARLY (stress urinary incontinence, female) Hepatomegaly Bronchitis Pneumonia Pulmonary nodules Sciatica Diverticulosis Hx of prolonged Q-T interval on ECG Osteoarthritis Diabetes HLD (hyperlipidemia) Surgical History (Updated 10/24/24 @ 10:42 by Michaela Allred RN) Hx of cervical spine surgery (02/2024) Hx of colonoscopy (05/12/23) History of total replacement of right shoulder joint (12/11/18) History of lumbar surgery History of arthroplasty of left shoulder (12/16/21) History of arthroplasty of left knee History of arthroplasty of right knee History of lumbar spinal fusion (11/17/17) Hx of tonsillectomy History of hysterectomy History of section Hx of umbilical hernia repair Hx of cholecystectomy Status post cataract extraction of both eyes with insertion of intraocular lens (~2017) Family History (Updated 12/07/21 @ 13:30 by Mena Wynn RN) Mother Breast cancer Mother Breast cancer Father Diabetes mellitus Other Blood clotting disorder Social History household members: spouse Smoking Status: Never smoker alcohol intake: current Assessment & Plan Assessment & Plan narrative: Diabetes mellitus type 2 -continue glimepiride, Jardiance and high dose lispro correctional scale. -she ended up not needing any added long-acting insulin during this hospital stay. Post orthopedic surgery acute blood loss anemia -hemoglobin 9.8, addressed per Orthopedics Hypertension -continue metoprolol tartrate and losartan. DVT prevention -aspirin 81 mg b.i.d. and SCD. Placement:[facility] on 11/04/2024 Time-Based Coding :: [TOTAL MINUTES] spent with patient and on the chart (including review of chart, obtaining history, exam, reviewing outside data, placing orders, documenting exam and treatment plan, and counseling patient) on [DATE].
[2024-11-04 07:45] VITALS: BP 104/48; PULSE 91; RESP 18; TEMP 36; O2SAT 97
[2024-11-04] MEDS: INSULIN LISPRO 100 UNIT/ML 3ML VIAL SUBCUT (07:45)
[2024-11-04] MEDS: OXYCODONE IR 5 MG TABLET PO (07:46)
[2024-11-04] MEDS: ASPIRIN EC 81 MG TABLET PO (08:40)
[2024-11-04] MEDS: METOPROLOL IR 50 MG TABLET PO (08:40)
[2024-11-04] MEDS: GLIMEPIRIDE 2 MG TABLET PO (08:40)
[2024-11-04] MEDS: SODIUM CHLORIDE 0.9% FLUSH 10 ML IV (08:45)
[2024-11-04] MEDS: SITAGLIPTIN 50 MG TABLET 100 MG PO (08:45)
--- NOTE | 2024-11-04 09:00 | PM.PN.1 ---
Subjective Subjective Interval history: PATIENT SUMMARY: The patient is a 74-year-old female who presented for postoperative evaluation following open reduction internal fixation of a left proximal humerus fracture with shaft extension, performed four days ago. SUBJECTIVE: The patient reported a fall while out of town, which resulted in a left proximal humerus fracture. She reported a history of an anatomic shoulder replacement four years ago. The patient developed a radial nerve palsy postoperatively. She mentioned that she was able to make a fist yesterday but had difficulty moving her wrist up and down. The patient did not report any new symptoms. OBJECTIVE: Not available. ASSESSMENT: 1. Postoperative status following open reduction internal fixation of left proximal humerus fracture: The patient underwent surgery four days ago. She has a history of anatomic shoulder replacement and presented with a fracture after a fall. The surgical intervention was performed by Dr. Pena, and the radial nerve was explored and found intact. 2. Radial nerve palsy: The patient developed radial nerve palsy postoperatively, which is affecting her ability to move her wrist. 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 PLAN: Treatment: - Continued use of wrist brace as needed for support. - PT and OT - Maintain dressing - Multimodal pain management Tests: - None indicated at this time. Follow-Up: - Plan for transfer to a rehabilitation facility, [facility], once arrangements are confirmed. Disposition: - [facility], potentially today Exam Vital Signs (past 8 hours): - 11/04/24 02:00 11/04/24 07:00 11/04/24 07:45 Temperature 97.0 F L 96.8 F L Pulse Rate 94 H 91 H Respiratory Rate 20 18 Blood Pressure 120/49 L 104/48 L Pulse Oximetry 94 97 Oxygen Delivery Method Room Air Oxygen Flow Rate 0 0 Fraction of Inspired Oxygen 28 SaO2/FiO2 Ratio 350 Oxygen Delivery Method Room Air Oxygen Flow Rate 0 Objective Labs 11/01/24 05:42 11/01/24 05:42 [facility] Medical History (Updated 11/02/24 @ 08:57 by Kathy Ken PA-C) Anesthesia Herniated nucleus pulposus, C5-6 Depression Rheumatoid arthritis Bilateral shoulder pain CARLY (stress urinary incontinence, female) Hepatomegaly Bronchitis Pneumonia Pulmonary nodules Sciatica Diverticulosis Hx of prolonged Q-T interval on ECG Osteoarthritis Diabetes HLD (hyperlipidemia) Surgical History (Updated 10/24/24 @ 10:42 by Michaela Allred RN) Hx of cervical spine surgery (02/2024) Hx of colonoscopy (05/12/23) History of total replacement of right shoulder joint (12/11/18) History of lumbar surgery History of arthroplasty of left shoulder (12/16/21) History of arthroplasty of left knee History of arthroplasty of right knee History of lumbar spinal fusion (11/17/17) Hx of tonsillectomy History of hysterectomy History of section Hx of umbilical hernia repair Hx of cholecystectomy Status post cataract extraction of both eyes with insertion of intraocular lens (~2017) Family History (Updated 12/07/21 @ 13:30 by Mena Wynn RN) Mother Breast cancer Mother Breast cancer Father Diabetes mellitus Other Blood clotting disorder Social History household members: spouse Smoking Status: Never smoker alcohol intake: current Assessment & Plan Time-Based Coding :: [TOTAL MINUTES] spent with patient and on the chart (including review of chart, obtaining history, exam, reviewing outside data, placing orders, documenting exam and treatment plan, and counseling patient) on [DATE].
--- NOTE | 2024-11-04 12:08 | PC.NURSE ---
D/c instructions printed and added to d/c packet. IV removed. Aquacel dresssing changed this morning, [facility] given to [facility] personnel. Pt exited via w/c.
--- NOTE | 2024-11-04 13:52 | CM.DPNOTE ---
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 Patient remains aware and agreeable to plan. DC ppk; Hospital exempt PASRR, signed med list and Rx emailed to Jennifer at . RN provided with number for nurse 2 nurse report. Plan: DC to via w/c van at 1130. JW
== END 2024-11-04 12:00 | DRG 493 ==
LOC: OR 11-02 08:27 → AC 11-02 08:27
PROVIDERS: Admitting Provider Orthopaedic Surgery Foot and Ankle Surgery; Family Provider Physician Assistant Medical; PCP Physician Assistant Medical; Referring Provider Orthopaedic Surgery Foot and Ankle Surgery; Visit Provider Orthopaedic Surgery Foot and Ankle Surgery
PROC: 0PSG04Z Reposition Left Humeral Shaft with Internal Fixation Device, Open Approach (ICD-10-PCS; principal; 2024-10-31 11:45)
DX: S42.342A Displaced spiral fracture of shaft of humerus, left arm, initial encounter for closed fracture (principal); M97.32XA Periprosthetic fracture around internal prosthetic left shoulder joint, initial encounter; S42.292A Other displaced fracture of upper end of left humerus, initial encounter for closed fracture; S44.22XA Injury of radial nerve at upper arm level, left arm, initial encounter; I10 Essential (primary) hypertension; G89.18 Other acute postprocedural pain; E11.65 Type 2 diabetes mellitus with hyperglycemia; F32.A Depression, unspecified; E78.5 Hyperlipidemia, unspecified; W19.XXXA Unspecified fall, initial encounter; Z98.1 Arthrodesis status; Z96.612 Presence of left artificial shoulder joint; Z79.84 Long term (current) use of oral hypoglycemic drugs
CPT/HCPCS: 36415; 73060; 76000; 80048; 82962; 85025; 94762; 97116; 97162; 97165; 97530; 97535; C1713; J0330; J0690; J1171; J1815; J2405; J2704; J3010

== ENCOUNTER 2024-11-13 12:41 | Emergency (ER) | payer MEDICARE, OTHER, SELFPAY ==
[2024-10-31 16:23] VITALS: BMI 35.4
[2024-11-13] VITALS (14 sets, daily range): BP systolic 109–139; BP diastolic 55–85; PULSE 68–81; RESP 16; TEMP 36.5; O2SAT 97–100; BMI 34.5
--- NOTE | 2024-11-13 16:45 | ED.EPISTAXIS ---
HPI - Epistaxis General Chief complaint: Nasal Problem Stated complaint: Nose bleed that won't stop Time Seen by Provider: 11/13/24 16:42 Source: patient, RN notes reviewed and old records reviewed Mode of arrival: Wheelchair Limitations: no limitations History of Present Illness HPI Narrative: 74-year-old female history of diabetes, hypertension, recent repair of left proximal humerus fracture with shaft extension and periprosthetic shoulder fracture with left radial nerve palsy who had an ORIF and discharged on 11/03/2024 patient presents with complaint of epistaxis. Patient states she has had nosebleeds remotely in the past but not recently. [facility] and notes that the heat has been on, the heaters right next to her bed and does blow on her and dries the room out significantly. She denies any recent trauma or injuries to her nose or face, no digital trauma. She was on aspirin for blood clot prevention for her surgery but no other anticoagulants. Patient states she had have a scant amount of bleed immediately after fall on November 01 but no bleeding since then. She has not had any other atypical bleeding, no bruising that is inappropriate. She states no other major medication changes. She also denies any fevers chills no chest pain or shortness of breath, no increasing swelling redness or pain of her upper extremity or other issues. Patient's nosebleed has stopped while here in the department. Related Data Home Medications Medication Instructions Recorded Confirmed duloxetine 60 mg capsule,delayed 60 mg PO HS ##0 11/09/17 10/31/24 release (Cymbalta) simvastatin 40 mg tablet 20 mg PO BEDTIME 11/27/18 10/31/24 sitagliptin phosphate 100 mg 100 mg PO DAILY 11/27/18 10/31/24 tablet (Januvia) gabapentin 300 mg capsule 600 mg PO TID PRN Nerve pain 12/07/21 10/31/24 (Neurontin) glimepiride 2 mg tablet 2 mg PO QAM 12/07/21 10/31/24 losartan 50 mg tablet 50 mg PO QPM 12/07/21 10/31/24 metoprolol tartrate 50 mg tablet 50 mg PO DAILY 12/16/21 10/31/24 Previous Rx's Medication Instructions Recorded lidocaine 5 % topical patch 1 patch topical DAILY axial back 06/12/19 pain #30 ea acetaminophen 500 mg capsule 1,000 mg (2 x 500 mg) PO Q8HR #90 02/16/24 caps aspirin 81 mg tablet,delayed 81 mg PO BID #60 tabs 11/03/24 release cyclobenzaprine 10 mg tablet 10 mg PO Q8HR PRN Spasms #30 tabs 11/03/24 ondansetron 4 mg disintegrating 4 mg PO Q4HR PRN Nausea And 11/03/24 tablet Vomiting #30 tabs oxycodone 5 mg tablet 5 mg PO Q3H PRN Pain, Moderate 11/03/24 (4-6) #30 tabs polyethylene glycol 3350 17 gram 17 g PO DAILY #30 ea 11/03/24 oral powder packet oxymetazoline 0.05 % nasal spray 2 spray intranasal Q12H PRN 11/13/24 (12 Hour Nasal [place]) Epistaxis 3 days #22 mL Allergies Allergy/AdvReac Type Severity Reaction Status Date / Time erythromycin base Allergy Intermediate HIVES, Verified 10/31/24 10:08 [ERYTHROMYCIN BASE] HYPERVENTILATING morphine [MORPHINE] Allergy Intermediate LUMBAR Verified 10/31/24 10:08 ITCHING, RASH Review of Systems Review of Systems ROS Unobtainable: All systems reviewed & are unremarkable except as noted in HPI and below Patient History Medical History Anesthesia Herniated nucleus pulposus, C5-6 Depression Rheumatoid arthritis Bilateral shoulder pain CARLY (stress urinary incontinence, female) Hepatomegaly Bronchitis Pneumonia Pulmonary nodules Sciatica Diverticulosis Hx of prolonged Q-T interval on ECG Osteoarthritis Diabetes HLD (hyperlipidemia) Surgical History Hx of cervical spine surgery (02/2024) Hx of colonoscopy (05/12/23) History of total replacement of right shoulder joint (12/11/18) History of lumbar surgery History of arthroplasty of left shoulder (12/16/21) History of arthroplasty of left knee History of arthroplasty of right knee History of lumbar spinal fusion (11/17/17) Hx of tonsillectomy History of hysterectomy History of section Hx of umbilical hernia repair Hx of cholecystectomy Status post cataract extraction of both eyes with insertion of intraocular lens (~2017) Family History Mother Breast cancer Mother Breast cancer Father Diabetes mellitus Other Blood clotting disorder Social History household members: spouse Smoking Status: Never smoker alcohol intake: current Smoking Status: Never smoker alcohol intake frequency: a few times a week Exam Narrative Exam Narrative: GEN: Well-appearing female, alert and oriented x 3, patient appears to be in mild distress. HEENT: Atraumatic, pupils are equal round reactive to light, extraocular movements are intact, left nares clear, right nare has small amount of dried clot, there is a small amount of area of excoriation adjacent with dried blood as well over the septum, there is no conjunctival pallor. Throat is clear without any exudates, erythema, tonsillar enlargement or uvular deviation HEART: Regular rate and rhythm without murmur, clicks, rubs. LUNGS:Lungs clear to auscultation, no wheezes, rales, crackles, chest moves symmetrically ABD:bowel sounds normal, soft, non-tender, no guarding, rebound, rigidity, no masses noted, no hepatosplenomegaly MSCL: Patient's left arm she has bandage, there is some mild swelling of the humerus but no appreciable swelling of the hand, no warmth erythema or other skin changes appreciated. NEURO:CN 2-12 intact, sensation normal SKIN: No rash, no petechiae, no ecchymosis appreciated Initial Vital Signs Initial Vital Signs: Vital Signs Temperature 97.7 F 11/13/24 12:43 Pulse Rate 78 11/13/24 12:43 Respiratory Rate 16 11/13/24 12:43 Blood Pressure 134/72 11/13/24 12:43 Pulse Oximetry 99 11/13/24 12:43 Oxygen Delivery Method Room Air 11/13/24 12:43 Course Vital Signs Vital signs: Vital Signs - 8 hr 11/13/24 12:43 11/13/24 13:37 11/13/24 13:38 Temperature 97.7 F Pulse Rate 78 76 Respiratory Rate 16 Blood Pressure 134/72 122/60 Pulse Oximetry 99 99 Oxygen Delivery Method Room Air 11/13/24 13:38 11/13/24 14:00 11/13/24 14:31 Temperature Pulse Rate 75 70 70 Respiratory Rate Blood Pressure Pulse Oximetry 99 98 98 Oxygen Delivery Method 11/13/24 14:59 11/13/24 14:59 11/13/24 15:00 Temperature Pulse Rate 70 71 Respiratory Rate Blood Pressure 120/55 L Pulse Oximetry 98 97 Oxygen Delivery Method 11/13/24 15:30 11/13/24 16:00 11/13/24 16:21 Temperature Pulse Rate 68 70 81 Respiratory Rate Blood Pressure Pulse Oximetry 98 98 98 Oxygen Delivery Method 11/13/24 16:21 11/13/24 16:30 11/13/24 16:30 Temperature Pulse Rate 69 Respiratory Rate Blood Pressure 126/85 133/68 Pulse Oximetry 100 Oxygen Delivery Method 11/13/24 17:00 11/13/24 17:01 11/13/24 17:01 Temperature Pulse Rate 74 74 Respiratory Rate Blood Pressure 109/83 Pulse Oximetry 98 98 Oxygen Delivery Method 11/13/24 17:28 11/13/24 17:28 Temperature Pulse Rate 79 Respiratory Rate Blood Pressure 139/69 Pulse Oximetry 98 Oxygen Delivery Method Room Air MDM - Epistaxis MDM Narrative Medical decision making narrative: 74-year-old female recent epistaxis which has stopped without any additional intervention at this time. Patient has a little bit of dried blood does not appear to have been from the right nare. Patient does note that has been very dry in her room at her facility and she seems most likely source of causing her bleed. Discussed can use Vaseline try to humidify the air in her room. Did discuss can use Afrin nasal clamp if she was recurrent bleed. Discharge Plan Departure Patient Disposition: Home Clinical Impression: Epistaxis Instructions: DI for Nosebleed Activity Restrictions/Additional Instructions: Follow up as needed. You do appear to have a small area of dried blood on the inner right nose. Use Afrin to the affected area, 2 sprays if having epistaxis. A prescription was sent to [facility] in [place]. Follow-up with the ENT specialist provided. Follow directions as noted below. Return to emergency department if self-care directions do not work and urine able to stop the bleeding, or if you become lightheaded, began vomiting. Use medications as directed. Nosebleed self-care - With the right self-care, most nosebleeds stop on their own. Here's what you should do: 1. Blow your nose. This might increase the bleeding for a moment, but that's OK. 2. Sit or stand while bending forward a little at the waist. DO NOT lie down or tilt your head back. 3. Pinch the soft area towards the bottom of your nose, below the bone (picture 1). DO NOT net software developer the bridge of your nose between your eyes. That will not work. DO NOT press on just 1 side, even if the bleeding is only on 1 side. That will not work either. 4. Squeeze your nose shut for at least 15 minutes. (In children, squeeze for only 5 minutes.) Use a clock to time yourself. Do not release the pressure before the time is up to check if the bleeding has stopped. If you keep checking, you will ruin your chances of getting the bleeding to stop. If you follow these steps, and your nose keeps bleeding, repeat all the steps once more. Apply pressure for a total of at least 30 minutes (or 10 minutes for children). If you are still bleeding, go to the emergency room or an urgent care clinic. What if I get repeated nosebleeds? - Frequent nosebleeds can be caused by: Breathing dry air all the time Using cold or allergy nasal sprays too much Frequent colds Snorting drugs into your nose, such as cocaine In some cases, repeat nosebleeds can be a sign that your blood does not clot like it should. If that is the case, there are often other clues. For instance, people with clotting problems bruise easily and might bleed more than you would expect after a small cut or scrape. Nosebleed treatment - If you end up seeing a doctor or nurse for your nosebleed, he or she will make sure you can breathe OK. Then he or she will try to get the bleeding to stop. To do that, he or she might have to put a device or some packing material up your nose. What can I do to keep from getting nosebleeds? - You can: Use a humidifier (a machine that makes the air less dry) in your bedroom when you sleep Keep the inside of your nose moist with a nasal saline spray or gel Not pick your nose, or at least clip your nails before you do to avoid injury Prescriptions: New oxymetazoline [12 Hour Nasal [place]] 0.05 % spray,non-aerosol 2 spray intranasal Q12H PRN (Reason: Epistaxis) 3 Days Qty: 22 0RF No Action duloxetine [Cymbalta] 60 MG capsule,delayed release(DR/EC) 60 mg PO HS Qty: 0 simvastatin 40 mg Tablet 20 mg PO BEDTIME Januvia 100 mg Tablet 100 mg PO DAILY acetaminophen 500 mg capsule 1,000 mg PO Q8HR Qty: 90 0RF losartan 50 mg Tablet 50 mg PO QPM glimepiride 2 mg Tablet 2 mg PO QAM Rx Instructions: administer with breakfast gabapentin [Neurontin] 300 mg capsule 600 mg PO TID PRN (Reason: Nerve pain) metoprolol tartrate 50 mg tablet 50 mg PO DAILY aspirin 81 mg Tablet,Delayed Release (Dr/Ec) 81 mg PO BID Qty: 60 0RF cyclobenzaprine 10 mg Tablet 10 mg PO Q8HR PRN (Reason: Spasms) Qty: 30 0RF ondansetron 4 mg Tablet,Disintegrating 4 mg PO Q4HR PRN (Reason: Nausea And Vomiting) Qty: 30 0RF polyethylene glycol 3350 17 gram Powder In Packet 17 g PO DAILY Qty: 30 1RF oxycodone 5 mg Tablet 5 mg PO Q3H PRN (Reason: Pain, Moderate (4-6)) Qty: 30 0RF Rx Instructions: May take 10mg (2 tabs) q3H for SEVERE pain (7-10) lidocaine 5 % adhesive patch,medicated 1 patch TOP DAILY MDD 12 hours maximum Qty: 30 4RF Rx Instructions: leave on most painful area for 12 hrs Referrals: Christin Linares PA-C [Primary Care Provider] - Stand Alone Forms: Patient Portal/API/Survey
== END 2024-11-13 18:01 | disposition home or self-care (01) ==
PROVIDERS: Emergency Provider Emergency Medicine; Family Provider Physician Assistant Medical; PCP Physician Assistant Medical
DX: R04.0 Epistaxis (principal)
CPT/HCPCS: 30905; 99281; 99283

== ENCOUNTER → 2025-02-07 08:20 | Outpatient (CLI) | payer MEDICARE, OTHER, SELFPAY ==
[2024-10-31 16:23] VITALS: BMI 35.4
== END ==
PROVIDERS: Family Provider Physician Assistant Medical; PCP Physician Assistant Medical; Referring Provider Orthopaedic Surgery Foot and Ankle Surgery; Visit Provider Orthopaedic Surgery Foot and Ankle Surgery
DX: G56.32 Lesion of radial nerve, left upper limb (principal)
CPT/HCPCS: 95886; 95911

== ENCOUNTER → 2025-09-07 13:56 | Outpatient (CLI) | payer MEDICARE, OTHER, SELFPAY ==
[2024-10-31 16:23] VITALS: BMI 35.4
--- NOTE | 2025-09-07 14:01 | DI.MG.S_ITS ---
MM screening mammo BI: 09/07/2025. BI-RADS: 1 CLINICAL: 75-year old female for bilateral screening mammogram. Tyrer-Cuzick lifetime risk of 9.0%. Current reported family history of breast cancer: maternal grandmother, mother and sister. PRIOR EXAMS 04/13/2024, 04/06/2023, 04/01/2022, 02/17/2021. MAMMOGRAPHY TECHNIQUE: 2D and 3D (tomosynthesis) digital mammographic views obtained, with additional images as needed for full coverage. Current study was also evaluated with a Computer Aided Detection (CAD) system. DENSITY B. There are scattered areas of fibroglandular density. MAMMOGRAPHY FINDINGS Bilateral: No suspicious mass, asymmetry, microcalcification, or other abnormality seen. IMPRESSION: * No evidence of malignancy. RECOMMENDATIONS Bilateral * Annual screening mammography. OVERALL ASSESSMENT CATEGORY BI-RADS-1: Negative. The [employer] recommends annual screening mammography beginning at age 40 for women with average risk of breast cancer. ELECTRONICALLY SIGNED: Min Huitron M.D. on 09/11/2025 at 11:24:09 AM PT Interpreting Station ID: [id number]
== END ==
LOC: MAMMO 14:00
PROVIDERS: PCP Physician Assistant Medical; Referring Provider Physician Assistant Medical; Visit Provider Physician Assistant Medical
DX: Z12.31 Encounter for screening mammogram for malignant neoplasm of breast (principal); Z80.3 Family history of malignant neoplasm of breast
CPT/HCPCS: 77063; 77067

== ENCOUNTER → 2025-09-24 10:21 | Outpatient (CLI) | payer MEDICARE, OTHER, SELFPAY ==
[2024-10-31 16:23] VITALS: BMI 35.4
--- NOTE | 2025-09-24 10:24 | DI.MRI.S_ITS ---
PROCEDURE: MR CERVICAL SPINE WO CON INDICATIONS: Neck pain, headaches TECHNIQUE: Noncontrast sagittal T1 spin echo and T2 fast spin echo, sagittal STIR, foraminal oblique sagittal T2 fast spin echo, and axial gradient echo or T2 fast spin echo through the cervical spine. COMPARISON: [facility], MR, MR CERVICAL SPINE WO CON, 05/16/2024, 9:12. CT, CT CERVICAL SPINE WO CON, 04/24/2024, 8:25. FINDINGS: Image quality: Excellent. Alignment and Curvature: There is trace, approximately 2-3 millimeters of C7-T1 anterolisthesis. Bones: C4-C6 ACDF. Marrow demonstrates normal overall signal. Spinal Cord: Visualized spinal cord has normal size and signal. No cerebellar tonsillar herniation. Paraspinous Soft Tissues: No paravertebral masses. Prevertebral soft tissues are normal in thickness. C2-C3: Loss of disc signal. Mild bilateral facet hypertrophy. No central stenosis. Mild left neural foraminal narrowing. No neural compression. C3-C4: Loss of disc signal. Mild bilateral facet hypertrophy. No central stenosis. Moderate left neural foraminal narrowing. No neural compression. C4-C5: Status post fusion. Mild bilateral facet hypertrophy. Mild bilateral uncovertebral joint hypertrophy. No central stenosis. Mild bilateral neural foraminal narrowing. No neural compression. C5-C6: Status post fusion. Mild bilateral facet hypertrophy. Mild bilateral uncovertebral joint hypertrophy. Mild narrowing of the central canal. Moderate bilateral neural foraminal narrowing. No neural compression. C6-C7: Loss of disc signal. Mild bilateral facet hypertrophy. No central stenosis. Mild bilateral neural foraminal narrowing. No neural compression. C7-T1: Loss of disc signal. Mild, diffuse disc bulge. Moderate bilateral facet hypertrophy. No central stenosis. Mild bilateral neural foraminal narrowing. No neural compression. IMPRESSION: Postsurgical changes. No severe central canal stenosis. No severe neural foraminal stenosis. No neural compression. Dictated by: Penelope Carter MD, PhD on 09/24/2025 at 12:37 Approved by: Penelope Carter MD, PhD on 09/24/2025 at 12:42
--- NOTE | 2025-09-24 10:29 | DI.RAD.S_ITS ---
PROCEDURE: XR LUMBAR SPINE MIN 4V INDICATIONS: XRAY TECHNIQUE: 5 views of the lumbar spine acquired, including flexion and extension views. COMPARISON: [facility], CR, XR LUMBAR SPINE 2 OR 3 VIEWS, 07/27/2022, 9:27. [facility], CR, XR LUMBAR SPINE MIN 4V, 03/05/2021, 9:39. FINDINGS: Bones: 5 nonrib-bearing vertebrae are present. Moderate levoscoliosis centered at the L2-L3 level. Posterior/interbody fusion from the L2 through the L5 level with posterior fixation rods and screws as well as intervertebral spacing devices in expected unchanged positions. Severe disc height loss with endplate sclerosis at the T12-L1 and L1-L2 level as well as the L5-S1 level. Lower lumbar spine facet joint arthropathy.. No vertebral body compression fractures. No suspicious bony lesions. Soft tissues: Overlying bowel gas pattern is normal. No suspicious soft tissue calcifications. Flexion/extension: There is reduced range of motion, with preserved normal alignment. IMPRESSION: 1. Stable posterior/interbody fusion from the L2 through the L5 level without radiographic suggestion of interval hardware complication. 2. Reduced range of motion, with preserved bony and hardware alignment. 3. Multilevel lumbar spine spondylosis similar prior exam. Dictated by: Bowen Powers RR Interpreted: Odilon Davalos MD on 09/24/2025 at 12:10 Transcribed by: SARAH on 09/24/2025 at 12:13 Approved by: Odilon Davalos M.D. on 09/24/2025 at 13:17
== END ==
PROVIDERS: PCP Physician Assistant Medical; Referring Provider Physician Assistant Medical; Visit Provider Pain Medicine Pain Medicine
DX: M54.12 Radiculopathy, cervical region (principal); M96.1 Postlaminectomy syndrome, not elsewhere classified; M47.816 Spondylosis without myelopathy or radiculopathy, lumbar region; Z98.1 Arthrodesis status
CPT/HCPCS: 72100; 72110; 72141